=== PATIENT | female | born 1970 | race Caucasian/White ===

== ENCOUNTER 2016-06-14 12:12 | Emergency (ER) | payer OTHER ==
[~2016-06-14] VITALS: Ht 165.1 cm; Wt 115.0 kg
[~2016-06-14 12:12] MED LIST: 1-ME1LIQ PO; ACID75TA6 PO; ALBU1AER INH; ASPI81TA11 PO; CARV3.12 PO; CLIN1CAP6 PO; EPIP0.3I IM; HYDR-3533 PO; IBUP800T23 PO; INSU1INJ5 SQ; LISI-366 PO; VENL-39 PO; VENL150T14 PO
[2016-06-14 12:25] VITALS: BP 141/82; PULSE 96; RESP 18; TEMP 97.9; O2SAT 99
[2016-06-14] MEDS ORDERED: LISI40TA PO (12:30)
[2016-06-14] MEDS ORDERED: ONDANSETRON HCL 4 MG/2 ML VIAL IV PUSH ONE (12:30)
[2016-06-14] MEDS ORDERED: ALBUAER3 INH (12:30)
[2016-06-14] MEDS ORDERED: CARV3.12 PO (12:30)
[2016-06-14] MEDS ORDERED: SODIUM CHLORIDE 0.9% FLUSH 5 ML FLUSH IVF PRN (12:30)
[2016-06-14] MEDS ORDERED: IBUP800T23 PO ×2 (12:30→13:41)
[2016-06-14] MEDS ORDERED: MORPHINE SULFATE 4 MG/ML INJ IV PUSH ONE (12:30)
[2016-06-14] MEDS ORDERED: SPIR25TA PO (12:30)
[2016-06-14] MEDS ORDERED: RANI150T PO (12:30)
[2016-06-14] MEDS ORDERED: AMLO10TA2 PO (12:30)
[2016-06-14] MEDS ORDERED: LORazepam 2 MG/ML VIAL IV PUSH ONE (12:30)
[2016-06-14] MEDS ORDERED: VENL225T PO (12:30)
[2016-06-14] MEDS ORDERED: GLIP10TA6 PO (12:30)
[2016-06-14] MEDS ORDERED: ASPI81CH3 CHEW (12:30)
[2016-06-14] MEDS ORDERED: LEVEMIR SQ (12:30)
[2016-06-14 12:40] VITALS: O2SAT 100
--- NOTE | 2016-06-14 12:42 | PD ---
HPI . Chest pain Chief Complaint: Chest Pain Time Seen by Provider: 12:30 Travel History International Travel<30 days: No Contact w/Intl Traveler<30days: No Traveled to known affect area: No History of Present Illness HPI Patient presents with a four-hour history of chest pain. She states that it started after she became upset about something. She describes a sharp right- sided chest pain with associated right hand numbness. Patient reports many previous similar episodes generally occurring following an event which upsets her. Her pain is associated with shortness of breath and nausea and diaphoresis. The patient also states that she tripped and fell today and injured her right ankle. 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 She states that she now has severe right ankle pain. PFSH Past Medical History Hx Anticoagulant Therapy: Yes Arthritis: Yes Asthma: Yes Blood Disorders: No Anxiety: Yes Depression: Yes Heart Rhythm Problems: No Cancer: No Cardiac Catheterization: Yes Cardiovascular Problems: Yes (CHF) High Cholesterol: Yes Chemotherapy: No Chest Pain: Yes Congestive Heart Failure: Yes (from chronic htn per pt) COPD: Yes (chronic bronchitis) Cerebrovascular Accident: Yes Diabetes: Yes (TYPE 1 ) Patient Takes Glucophage: No Diminished Hearing: No Endocrine: Yes Gastrointestinal Disorders: Yes GERD: Yes Genitourinary: No Headaches: Yes Hypertension: Yes Immune Disorder: No Implanted Vascular Access Dvce: Yes Musculoskeletal: Yes Neurologic: Yes (NEUROPATHY) Psychiatric: Yes Reproductive: Yes (UTERINE ABLATION) Respiratory: Yes Immunizations Current: Yes Migraines: Yes Myocardial Infarction: Yes Radiation Therapy: No Sleep Apnea: Yes (CPAP) Thyroid Disease: No ?: Not : 2 Para: 2 Tubal Ligation: Yes Past Surgical History Abdominal Surgery: Yes (choley) Section: Yes (X 2) Cholecystectomy: Yes Gynecologic Surgery: Yes (UTERINE ABLATION, 2004/ tubal ligation ) Hysterectomy: Yes Oral Surgery: Yes (tonsils and adenoids) Tonsillectomy: Yes Other Surgery: Yes (c/sect.x2,cholest.,t/a, uterine ablation) Social History Alcohol Use: No Tobacco Use: No Substance Use: No Allergies-Medications (Allergen,Severity, Reaction): Coded Allergies: Augmentin (Unverified Allergy, Severe, RASH, SOB, 06/14/16) Bee Sting (Verified Allergy, Severe, Anaphylaxis, 06/14/16) Penicillin (Unverified Allergy, Severe, HIVES, SOB, 06/14/16) Sulfa (Unverified Allergy, Severe, SHORTNESS OF BREATH, 06/14/16) Benadryl (Verified Allergy, Intermediate, hives, 06/14/16) Latex (Unverified Allergy, Unknown, HIVES, 06/14/16) Reported Meds & Prescriptions Reported Meds & Active Scripts Active Reported Glipizide 10 Mg Tab 10 Mg PO DAILY Take 30 minutes before a meal Aspirin 81 Low Dose (Aspirin) 81 Mg Chew 81 Mg CHEW DAILY Amlodipine (Amlodipine Besylate) 10 Mg Tab 10 Mg PO DAILY Carvedilol 3.125 Mg Tab 3.125 Mg PO HS Levemir Inj (Insulin Detemir) 1,000 unit/ 10 ML Vial 40 Units SQ BID Do not mix with any other Insulin. Spironolactone 25 Mg Tab 25 Mg PO DAILY Proair Hfa 8.5 GM Inh (Albuterol Sulfate) 90 Mcg/Act Aer 2 Puff INH Q4-6H PRN 108 mcg/actuation Ibuprofen 800 Mg Tab 800 Mg PO Q8H PRN Venlafaxine ER 24 HR (Venlafaxine HCl) 225 Mg Tab 225 Mg PO DAILY Ranitidine (Ranitidine HCl) 150 Mg Tab 150 Mg PO HS Lisinopril 40 Mg Tab 40 Mg PO DAILY Review of Systems Except as stated in HPI: all other systems reviewed are Neg General / Constitutional: Positive: Other (diaphoresis), No: Fever, Chills Cardiovascular: Positive: Chest Pain or Discomfort Respiratory: Positive: Shortness of Breath Gastrointestinal: Positive: Nausea Musculoskeletal: Positive: Arthralgias Physical Exam Narrative GENERAL: Awake and alert and in no acute distress. SKIN: Warm and dry. HEAD: Atraumatic. Normocephalic. EYES: Pupils equal and round. ENT: No nasal bleeding or discharge. Mucous membranes pink and moist. NECK: Trachea midline. Neck is supple. CARDIOVASCULAR: Regular rate and rhythm. Heart sounds are normal. RESPIRATORY: No accessory muscle use. Lungs are clear with full air movement throughout. GASTROINTESTINAL: Abdomen soft, non-tender, nondistended. MUSCULOSKELETAL: No edema. Diffuse right ankle tenderness. No swelling. Tenderness. No deformity. NEUROLOGICAL: Awake and alert. No obvious cranial nerve deficits. Motor grossly within normal limits. Normal speech. PSYCHIATRIC: Appropriate mood and affect; insight and judgment normal. Data Data Last Documented VS Vital Signs Date Time Temp Pulse Resp B/P Pulse Ox O2 Delivery O2 Flow Rate FiO2 06/14/16 12:40 92 06/14/16 12:40 100 Room Air 06/14/16 12:25 97.9 18 141/82 Orders Basic Metabolic Panel (Bmp) (06/14/16 12:30) Ckmb (Isoenzyme) Profile (06/14/16 12:30) Complete Blood Count With Diff (06/14/16 12:30) Magnesium (Mg) (06/14/16 12:30) Troponin I (06/14/16 12:30) Chest, Single Ap (06/14/16 12:30) Ecg Monitoring (06/14/16 12:30) Iv Access Insert/Monitor (06/14/16 12:30) Oximetry (06/14/16 12:30) Morphine Inj (Morphine Inj) (06/14/16 12:30) Sodium Chloride 0.9% Flush (Ns Flush) (06/14/16 12:30) Ondansetron Inj (Zofran Inj) (06/14/16 12:30) Lorazepam Inj (Ativan Inj) (06/14/16 12:30) Ankle, Complete ([id number]) (06/14/16 ) Labs Laboratory Tests Test 06/14/16 12:30 White Blood Count 11.1 TH/MM3 Red Blood Count 5.11 MIL/MM3 Hemoglobin 14.0 GM/DL Hematocrit 43.0 % Mean Corpuscular Volume 84.2 FL Mean Corpuscular Hemoglobin 27.5 PG Mean Corpuscular Hemoglobin 32.6 % Concent Red Cell Distribution Width 13.3 % Platelet Count 352 TH/MM3 Mean Platelet Volume 10.1 FL Neutrophils (%) (Auto) 42.6 % Lymphocytes (%) (Auto) 52.2 % Monocytes (%) (Auto) 3.9 % Eosinophils (%) (Auto) 0.6 % Basophils (%) (Auto) 0.7 % Neutrophils # (Auto) 4.7 TH/MM3 Lymphocytes # (Auto) 5.8 TH/MM3 Monocytes # (Auto) 0.4 TH/MM3 Eosinophils # (Auto) 0.1 TH/MM3 Basophils # (Auto) 0.1 TH/MM3 CBC Comment AUTO DIFF Differential Total Cells 100 Counted Neutrophils % (Manual) 57 % Band Neutrophils % 2 % Lymphocytes % 40 % Monocytes % 1 % Neutrophils # (Manual) 6.5 TH/MM3 Differential Comment FINAL DIFF MANUAL Platelet Estimate NORMAL Platelet Morphology Comment NORMAL Red Cell Morphology Comment NORMAL Sodium Level 138 MEQ/L Potassium Level 4.0 MEQ/L Chloride Level 101 MEQ/L Carbon Dioxide Level 29.5 MEQ/L Anion Gap 8 MEQ/L Blood Urea Nitrogen 16 MG/DL Creatinine 0.78 MG/DL Estimat Glomerular Filtration 80 ML/MIN Rate Random Glucose 102 MG/DL Calcium Level 8.9 MG/DL Magnesium Level 2.0 MG/DL Total Creatine Kinase 93 U/L Troponin I LESS THAN 0.02 NG/ML Exceptions Acute Myocardial Infarction ASA Not Given on Arrival: Already taken by patient MDM Medical Decision Making Medical Screen Exam Complete: Yes Emergency Medical Condition: Yes Medical Record Reviewed: Yes (the patient had a negative Lexiscan stress test on . That scan showed an ejection fraction of 66%.) Interpretation(s) EKG shows a sinus rhythm with a ventricular rate of 94. She has left ventricular hypertrophy. There is no ST segment elevation or depression. Her EKG is unchanged from previous. Differential Diagnosis Differential diagnosis of chest pain includes but is not limited to musculoskeletal pain, pulmonary embolism, acute coronary syndrome, pneumonia, pleurisy Narrative Course Patient presents for evaluation of sharp right-sided chest pain. She is also complaining with right ankle pain status post a mechanical fall this morning. CBC & BMP Diagram 06/14/16 12:30 Total CK is 93 and troponin is less than 0.02. With the description of her pain being right sided and sharp, with her pain having been present for 4 hours or more prior to presentation and with a negative Lexiscan stress test done less than a year ago, her likelihood of having cardiac chest pain is very small. Last Impressions Chest X-Ray 06/14/16 1230 Signed Impressions: Service Date/Time: Tuesday, June 14, 2016 12:50 - CONCLUSION: No acute disease. Wayne Portillo MD FACR Her ankle x-ray shows some degenerative changes but no fracture. The chest and ankle x-rays were independently viewed by me. Diagnosis Primary Impression: Chest pain Qualified Code: R07.9 - Chest pain, unspecified type Additional Impression: Right ankle pain Qualified Code: M25.571 - Acute right ankle pain Patient Instructions: Arthralgia (ED), Chest Pain (DC), General Instructions Med/Other Pt SpecificInfo: Prescription(s) given Scripts Tramadol (Ultram)50 Mg Tab50 Mg PO Q4H PRN (PAIN) #10 TAB Ref 0 Prov:Radha Perez MD 06/14/16 Ibuprofen 800 Mg [id number] Mg PO Q8H PRN (pain) #30 TAB Ref 0 Prov:Radha Perez MD 06/14/16 Disposition: 01 DISCHARGE HOME Condition: Stable Radha Perez MD Jun 14, 2016 12:42
[2016-06-14 12:47] LABS: AUTOMATED NEUTROPHIL # 4.7 TH/MM3 (1.8-7.7); BASOPHIL # 0.1 TH/MM3 (0-0.2); BASOPHIL % 0.7 % (0.0-2.0); EOSINOPHIL # 0.1 TH/MM3 (0-0.4); EOSINOPHIL % 0.6 % (0.0-4.0); HEMO FLAGS AUTO DIFF; LYMPH % 52.2 % (9.0-44.0); LYMPHOCYTE # 5.8 TH/MM3 (1.0-4.8); MEAN CELL VOLUME 84.2 FL (80.0-100.0); MEAN CORPUSCULAR HEMOGLOBIN 27.5 PG (27.0-34.0); MEAN CORPUSCULAR HGB CONC 32.6 % (32.0-36.0); MONO % 3.9 % (0.0-8.0); NEUT % 42.6 % (16.0-70.0); PLATELET COUNT 352 TH/MM3 (150-450); RED BLOOD COUNT 5.11 MIL/MM3 (4.00-5.30); RED CELL DISTRIBUTION WIDTH 13.3 % (11.6-17.2); WHITE BLOOD COUNT 11.1 TH/MM3 (4.0-11.0)
[2016-06-14 12:55] LABS: CHLORIDE 101 MEQ/L (98-107); SODIUM (NA) 138 MEQ/L (136-145)
[2016-06-14 12:58] LABS: ANION GAP 8 MEQ/L (5-15); BICARBONATE 29.5 MEQ/L (21.0-32.0); BLOOD UREA NITROGEN 16 MG/DL (7-18)
[2016-06-14 13:01] LABS: GLOMERULAR FILTRATION RATE 80 ML/MIN (>89)
--- NOTE | 2016-06-14 13:17 | RADHPO ---
EXAM DATE/TIME: 06/14/2016 12:50 [facility] COMPARISON: CHEST SINGLE AP, August 22, 2015, 11:22. INDICATIONS : Chest pain, short of breath. MEDICAL HISTORY : Hypertension. Diabetes mellitus type II. Congestive heart failure. asthma, bronchitis SURGICAL HISTORY : None. ENCOUNTER: Initial ACUITY: 1 day PAIN SCORE: 8/10 LOCATION: Bilateral chest FINDINGS: A single view of the chest demonstrates the lungs to be symmetrically aerated without evidence of mas s, infiltrate or effusion. The cardiomediastinal contours are unremarkable. Osseous structures are intact. CONCLUSION: No acute disease. Wayne Portillo MD FACR on June 14, 2016 at 13:15 Board Certified Radiologist. This report was verified electronically.
[2016-06-14 13:20] LABS: BANDS 2 % (0-6); NEUTROPHIL # MANUAL DIFF 6.5 TH/MM3 (1.8-7.7); POLYS (SEG NEUTROPHILS) 57 % (16-70); WBC DIFF SAMPLE 100
[2016-06-14 13:21] LABS: PLATELET ESTIMATE SMEAR NORMAL (NORMAL); PLATELET MORPHOLOGY NORMAL (NORMAL); SCAN/DIFF FINAL DIFF MANUAL
--- NOTE | 2016-06-14 13:21 | RADHPO ---
EXAM DATE/TIME: 06/14/2016 12:49 [facility] COMPARISON: No previous studies available for comparison. INDICATIONS : Fall, right medial ankle pain. MEDICAL HISTORY : None. SURGICAL HISTORY : None. ENCOUNTER: Initial ACUITY: 1 day PAIN SCORE: 10/10 LOCATION: Right medial ankle FINDINGS: There are degenerative changes about the medial malleolus with some soft tissue swelling evident. La teral malleolus shows some soft tissue swelling as well without fracture. CONCLUSION: Degenerative changes without fracture. Wayne Portillo MD FACR on June 14, 2016 at 13:13 Board Certified Radiologist. This report was verified electronically.
[2016-06-14 13:22] LABS: CREATINE KINASE 93 U/L (26-192)
[2016-06-14] MEDS ORDERED: ULTR50TA5 PO (13:41)
[2016-06-14 13:50] VITALS: BP 143/78; PULSE 98; RESP 16; O2SAT 95
--- NOTE | 2016-06-15 19:20 | EKG ---
Date Performed: 06/14/2016 Time Performed: 12:19:56 PTAGE: 45 years EKG: Sinus rhythm . Left ventricular hypertrophy by voltage only Since previous tracing, no significant change noted Ab normal ECG PREVIOUS TRACING : 08/22/2015 16.57 DOCTOR: Donte Bush Interpretating Date/Time 06/15/2016 19:19:24
== END 2016-06-14 14:30 | disposition home or self-care (01) ==
LOC: PHED 12:12
DX: R07.9 Chest pain, unspecified (principal); M25.571 Pain in right ankle and joints of right foot; R06.02 Shortness of breath; R11.0 Nausea; R61 Generalized hyperhidrosis; R94.31 Abnormal electrocardiogram [ECG] [EKG]; E78.00 Pure hypercholesterolemia, unspecified; E10.9 Type 1 diabetes mellitus without complications; I10 Essential (primary) hypertension; G47.30 Sleep apnea, unspecified; W01.0XXA Fall on same level from slipping, tripping and stumbling without subsequent striking against object, initial encounter; Z79.4 Long term (current) use of insulin; Z79.01 Long term (current) use of anticoagulants; Z87.39 Personal history of other diseases of the musculoskeletal system and connective tissue; Z87.09 Personal history of other diseases of the respiratory system; Z86.59 Personal history of other mental and behavioral disorders; Z86.79 Personal history of other diseases of the circulatory system; Z86.73 Personal history of transient ischemic attack (TIA), and cerebral infarction without residual deficits; Z87.19 Personal history of other diseases of the digestive system; Z86.69 Personal history of other diseases of the nervous system and sense organs
CPT/HCPCS: 71010; 73610; 80048; 82550; 83735; 84484; 85007; 85027; 93005; 96374; 99285; J2060

== ENCOUNTER 2016-09-10 12:29 | Inpatient (IN) | payer OTHER ==
[2016-09-10] VITALS (8 sets, daily range): BP systolic 128–164; BP diastolic 70–91; PULSE 87–101; RESP 18–26; TEMP 97–98.9; O2SAT 95–99
[~2016-09-10] VITALS: Ht 165.1 cm; Wt 118.5 kg
[~2016-09-10 12:29] MED LIST changes: -1-ME1LIQ PO; -ACID75TA6 PO; -ALBU1AER INH; +ALBUAER3 INH; +AMLO10TA2 PO; +ASPI81CH3 CHEW; -ASPI81TA11 PO; -CLIN1CAP6 PO; -EPIP0.3I IM; +GLIP10TA6 PO; -HYDR-3533 PO; -INSU1INJ5 SQ; +LEVEMIR SQ; -LISI-366 PO; +LISI40TA PO; +RANI150T PO; +SPIR25TA PO; +ULTR50TA5 PO; -VENL-39 PO; -VENL150T14 PO; +VENL225T PO
[2016-09-10] MEDS ORDERED: NITROGLYCERIN 0.4 MG SL 25 TABS/BTL SL ONE (12:45)
[2016-09-10] MEDS ORDERED: SODIUM CHLORIDE 0.9% FLUSH 10 ML FLUSH IVF PRN (12:45)
--- NOTE | 2016-09-10 12:49 | PD ---
HPI Chief Complaint: Chest Pain Time Seen by Provider: 12:37 Travel History International Travel<30 days: No Contact w/Intl Traveler<30days: No Traveled to known affect area: No History of Present Illness HPI 46-year-old female presents with epigastric and central chest pain that is been present for the past couple of days with shortness of breath. She states she's also been nauseous. She states this feels similar to her prior heart attack she had in 2007 when her daughter . She states that she had a cardiac catheterization about 10 years ago that was normal. Her last stress test was in 2007 and normal. She states her informatics pharmacist is Dr. tran in [place]. She took aspirin and nitroglycerin prior to arrival without change. She denies other concurrent complaints. EKG in route showed no acute changes. Quality is pressure. Severity is moderate. She denies specific modifying factors. She denies prior blood clots or family history of clots. PFSH Past Medical History Hx Anticoagulant Therapy: Yes Arthritis: Yes Asthma: Yes Blood Disorders: No Anxiety: Yes Depression: Yes Heart Rhythm Problems: No Cancer: No Cardiac Catheterization: Yes Cardiovascular Problems: Yes (CHF) High Cholesterol: Yes Chemotherapy: No Chest Pain: Yes Congestive Heart Failure: Yes (from chronic htn per pt) COPD: Yes (chronic bronchitis) Cerebrovascular Accident: Yes Diabetes: Yes (TYPE 1 ) Diminished Hearing: No Endocrine: Yes Gastrointestinal Disorders: Yes GERD: Yes Genitourinary: No Headaches: Yes Hypertension: Yes Immune Disorder: No Implanted Vascular Access Dvce: Yes Musculoskeletal: Yes Neurologic: Yes (NEUROPATHY) Psychiatric: Yes Reproductive: Yes (UTERINE ABLATION) Respiratory: Yes Immunizations Current: Yes Migraines: Yes Myocardial Infarction: Yes Radiation Therapy: No Sleep Apnea: Yes (CPAP) Thyroid Disease: No ?: Not : 2 Para: 2 Tubal Ligation: Yes Past Surgical History Abdominal Surgery: Yes (choley) Section: Yes (X 2) Cholecystectomy: Yes Gynecologic Surgery: Yes (UTERINE ABLATION, 2004/ tubal ligation ) Hysterectomy: Yes Oral Surgery: Yes (tonsils and adenoids) Tonsillectomy: Yes Other Surgery: Yes (c/sect.x2,cholest.,t/a, uterine ablation) Social History Alcohol Use: No Tobacco Use: No Substance Use: No Allergies-Medications (Allergen,Severity, Reaction): Coded Allergies: Augmentin (Unverified Allergy, Severe, RASH, SOB, 06/14/16) Bee Sting (Verified Allergy, Severe, Anaphylaxis, 06/14/16) Penicillin (Unverified Allergy, Severe, HIVES, SOB, 06/14/16) Sulfa (Unverified Allergy, Severe, SHORTNESS OF BREATH, 06/14/16) Benadryl (Verified Allergy, Intermediate, hives, 06/14/16) Latex (Unverified Allergy, Unknown, HIVES, 06/14/16) Reported Meds & Prescriptions Reported Meds & Active Scripts Active Ultram (Tramadol HCl) 50 Mg Tab 50 Mg PO Q4H PRN Ibuprofen 800 Mg Tab 800 Mg PO Q8H PRN Reported Glipizide 10 Mg Tab 10 Mg PO DAILY Take 30 minutes before a meal Aspirin 81 Low Dose (Aspirin) 81 Mg Chew 81 Mg CHEW DAILY Amlodipine (Amlodipine Besylate) 10 Mg Tab 10 Mg PO DAILY Carvedilol 3.125 Mg Tab 3.125 Mg PO HS Levemir Inj (Insulin Detemir) 1,000 unit/ 10 ML Vial 40 Units SQ BID Do not mix with any other Insulin. Spironolactone 25 Mg Tab 25 Mg PO DAILY Proair Hfa 8.5 GM Inh (Albuterol Sulfate) 90 Mcg/Act Aer 2 Puff INH Q4-6H PRN 108 mcg/actuation Ibuprofen 800 Mg Tab 800 Mg PO Q8H PRN Venlafaxine ER 24 HR (Venlafaxine HCl) 225 Mg Tab 225 Mg PO DAILY Ranitidine (Ranitidine HCl) 150 Mg Tab 150 Mg PO HS Lisinopril 40 Mg Tab 40 Mg PO DAILY Review of Systems Except as stated in HPI: all other systems reviewed are Neg Physical Exam Narrative GENERAL: Well-nourished, well-developed patient. SKIN: Warm and dry. HEAD: Normocephalic and atraumatic. EYES: No injection or drainage. ENT: No nasal drainage noted. NECK: Supple, trachea midline. CARDIOVASCULAR: Regular rate and rhythm RESPIRATORY: Breath sounds equal bilaterally. No accessory muscle use. GASTROINTESTINAL: Abdomen soft, non-tender, nondistended. EXTREMITIES: No edema. NEUROLOGICAL: Awake and alert. Motor and sensory grossly within normal limits. Normal speech. Data Data Last Documented VS Vital Signs Date Time Temp Pulse Resp B/P Pulse Ox O2 Delivery O2 Flow Rate FiO2 09/10/16 13:22 100 24 159/86 09/10/16 12:54 99 Nasal Cannula 2 09/10/16 12:31 98.3 Orders Electrocardiogram (09/10/16 12:37) Ckmb (Isoenzyme) Profile (09/10/16 12:37) Complete Blood Count With Diff (09/10/16 12:37) Comprehensive Metabolic Panel (09/10/16 12:37) D-Dimer (09/10/16 12:37) Magnesium (Mg) (09/10/16 12:37) Prothrombin Time / Inr (Pt) (09/10/16 12:37) Act Partial Throm Time (Ptt) (09/10/16 12:37) Troponin I (09/10/16 12:37) Lipase (09/10/16 12:37) Chest, Single Ap (09/10/16 12:37) Ecg Monitoring (09/10/16 12:37) Bilateral Bp Monitoring (09/10/16 12:37) Iv Access Insert/Monitor (09/10/16 12:37) Oximetry (09/10/16 12:37) Sodium Chloride 0.9% Flush (Ns Flush) (09/10/16 12:45) Nitroglycerin Sl (Nitrostat Sl) (09/10/16 12:45) CKMB (09/10/16 12:45) CKMB% (09/10/16 12:45) Admit Order (Ed Use Only) (09/10/16 13:52) Labs Laboratory Tests Test 09/10/16 12:45 White Blood Count 10.4 TH/MM3 Red Blood Count 4.58 MIL/MM3 Hemoglobin 12.3 GM/DL Hematocrit 39.0 % Mean Corpuscular Volume 85.1 FL Mean Corpuscular Hemoglobin 26.8 PG Mean Corpuscular Hemoglobin 31.5 % Concent Red Cell Distribution Width 14.0 % Platelet Count 266 TH/MM3 Mean Platelet Volume 9.9 FL Neutrophils (%) (Auto) 45.8 % Lymphocytes (%) (Auto) 45.6 % Monocytes (%) (Auto) 6.7 % Eosinophils (%) (Auto) 1.1 % Basophils (%) (Auto) 0.8 % Neutrophils # (Auto) 4.7 TH/MM3 Lymphocytes # (Auto) 4.7 TH/MM3 Monocytes # (Auto) 0.7 TH/MM3 Eosinophils # (Auto) 0.1 TH/MM3 Basophils # (Auto) 0.1 TH/MM3 CBC Comment DIFF FINAL Differential Comment Prothrombin Time 10.4 SEC Prothromb Time International 0.9 RATIO Ratio Activated Partial 25.2 SEC Thromboplast Time D-Dimer Quantitative (PE/DVT) 0.32 MG/L FEU Sodium Level 138 MEQ/L Potassium Level 3.4 MEQ/L Chloride Level 101 MEQ/L Carbon Dioxide Level 29.5 MEQ/L Anion Gap 8 MEQ/L Blood Urea Nitrogen 9 MG/DL Creatinine 0.66 MG/DL Estimat Glomerular Filtration 97 ML/MIN Rate Random Glucose 142 MG/DL Calcium Level 8.4 MG/DL Magnesium Level 1.8 MG/DL Total Bilirubin 0.2 MG/DL Aspartate Amino Transf 27 U/L (AST/SGOT) Alanine Aminotransferase 27 U/L (ALT/SGPT) Alkaline Phosphatase 102 U/L Total Creatine Kinase 121 U/L Creatine Kinase MB 0.8 NG/ML Troponin I LESS THAN 0.02 NG/ML Total Protein 7.3 GM/DL Albumin 3.1 GM/DL Lipase 194 U/L MDM Medical Decision Making Medical Screen Exam Complete: Yes Emergency Medical Condition: Yes Medical Record Reviewed: Yes (past history confirmed) Interpretation(s) EKG shows NSR, no ST elevation or depression, and no arrhythmias. No significant T-wave inversions. CBC & BMP Diagram 09/10/16 12:45 Last 24 hours Impressions Chest X-Ray 09/10/16 1237 Signed Impressions: Service Date/Time: Saturday, September 10, 2016 12:43 - CONCLUSION: Normal examination for a patient of this age. No significant change has occurred. Yonatan Hogue MD Differential Diagnosis Cardiac, musculoskeletal, gastritis, PE Narrative Course Will check blood work, chest x-ray and reevaluate ed workup no emergent process, agrees to [facility] observation Diagnosis Primary Impression: Chest pain Qualified Code: R07.9 - Chest pain, unspecified type Fidelia Stern MD September 10, 2016 12:49
[2016-09-10 13:05] LABS: AUTOMATED NEUTROPHIL # 4.7 TH/MM3 (1.8-7.7); BASOPHIL # 0.1 TH/MM3 (0-0.2); BASOPHIL % 0.8 % (0.0-2.0); EOSINOPHIL # 0.1 TH/MM3 (0-0.4); EOSINOPHIL % 1.1 % (0.0-4.0); HEMO FLAGS DIFF FINAL; LYMPH % 45.6 % (9.0-44.0); LYMPHOCYTE # 4.7 TH/MM3 (1.0-4.8); MEAN CELL VOLUME 85.1 FL (80.0-100.0); MEAN CORPUSCULAR HEMOGLOBIN 26.8 PG (27.0-34.0); MEAN CORPUSCULAR HGB CONC 31.5 % (32.0-36.0); MONO % 6.7 % (0.0-8.0); NEUT % 45.8 % (16.0-70.0); PLATELET COUNT 266 TH/MM3 (150-450); RED BLOOD COUNT 4.58 MIL/MM3 (4.00-5.30); WHITE BLOOD COUNT 10.4 TH/MM3 (4.0-11.0)
--- NOTE | 2016-09-10 13:08 | RADRPT ---
EXAM DATE/TIME: 09/10/2016 12:43 [facility] COMPARISON: CHEST SINGLE AP, June 14, 2016, 12:50. INDICATIONS : Chest pain. MEDICAL HISTORY : Hypertension. Diabetes mellitus type II. Congestive heart failure. asthma SURGICAL HISTORY : None. ENCOUNTER: Initial ACUITY: 2 days PAIN SCORE: 9/10 LOCATION: Bilateral chest FINDINGS: A single view of the chest demonstrates the lungs to be symmetrically aerated without evidence of mas s, infiltrate or effusion. The cardiomediastinal contours are unremarkable. Osseous structures are intact. CONCLUSION: Normal examination for a patient of this age. No significant change has occurred. Yonatan Hogue MD on September 10, 2016 at 13:07 Board Certified Radiologist. This report was verified electronically.
[2016-09-10 13:24] LABS: ALKALINE PHOSPHATASE 102 U/L (45-117); CREATINE KINASE 121 U/L (26-192); TOTAL BILIRUBIN ADULT 0.2 MG/DL (0.2-1.0)
[2016-09-10 13:25] LABS: APTT (PATIENT) 25.2 SEC (24.3-30.1); INTERNATIONAL NORMALIZED RATIO 0.9 RATIO; PROTHROMBIN TIME - PATIENT 10.4 SEC (9.8-11.6)
[2016-09-10 13:31] LABS: ALT (GPT) 27 U/L (10-53); ANION GAP 8 MEQ/L (5-15); AST (GOT) 27 U/L (15-37); BICARBONATE 29.5 MEQ/L (21.0-32.0); BLOOD UREA NITROGEN 9 MG/DL (7-18); CHLORIDE 101 MEQ/L (98-107); GLOMERULAR FILTRATION RATE 97 ML/MIN (>89); MAGNESIUM 1.8 MG/DL (1.5-2.5); POTASSIUM 3.4 MEQ/L (3.5-5.1); SODIUM (NA) 138 MEQ/L (136-145)
[2016-09-10 13:37] LABS: CKMB 0.8 NG/ML (0.5-3.6)
[2016-09-10] MEDS ORDERED: ACETAMINOPHEN 325 MG TAB PO ONE (14:00)
[2016-09-10] MEDS ORDERED: GABA400C5 PO (14:31)
[2016-09-10] MEDS ORDERED: ONDANSETRON HCL 4 MG/2 ML VIAL IV PRN (17:00)
[2016-09-10] MEDS ORDERED: ACETAMINOPHEN 500 MG CPLT PO PRN (17:00)
[2016-09-10] MEDS ORDERED: NITROGLYCERIN 0.4 MG SL 25 TABS/BTL SL PRN (17:00)
[2016-09-10] MEDS ORDERED: VENL150C39 PO (17:41)
[2016-09-10] MEDS ORDERED: VENL75CA44 PO (17:42)
[2016-09-10 18:45] LABS: CREATINE KINASE 109 U/L (26-192)
[2016-09-10] MEDS ORDERED: ACETAMINOPHEN/HYDROcodone 325 MG/7.5 MG TAB PO PRN (18:45)
[2016-09-10 18:58] LABS: CKMB LESS THAN 0.5 NG/ML (0.5-3.6)
--- NOTE | 2016-09-10 19:05 | HHI.HP ---
HPI Primary Care Physician BIENVENIDO Riley Chief Complaint Chest pain History of Present Illness 46-year-old female with past medical history of type 1 diabetes, rheumatoid arthritis, and anxiety presents to the emergency room for further evaluation of intermittent chest pain. Onset Friday while at work. Location left anterior chest described as a "sharp pain and that someone was sitting on my chest." Duration approximately 25 minutes. Pain gradually subsided. Initial episode she did not have radiation of pain. No associated symptoms. Since Friday she has experienced intermittent sharp pain in her left anterior chest "multiple times." Today she developed severe pain with radiation to her epigastric area, right arm, right shoulder, and right leg. Nonexertional component. Associated symptoms today included blurred vision and she felt she could not walk. Laying down helped pain. Sitting up makes pain worse. No particular movements or deep breathing makes pain better or worse. She has never had pain this in the past. Pain has been constant since this a.m. Currently rates her pain at a level 9/10. Currently no radiation of pain. Review of Systems General: No fatigue,weakness, chills, or recent illness. Denies any fevers per se although states over the past 2 days she has felt "hot." Has been in her general state of health HEENT: No TRACY, no nasal congestion or drainage, no dysphasia CV: As stated above. No palpitations, intermittent leg pain, or dizziness RESP: No SOB, cough, wheeze, or recent URI. Reports sleep apnea although does not CPAP machine at home. History of asthma. GI: No nausea, vomiting. Endorses a recent bowel change consisting of constipation. Last bowel movement 4 days ago. No pain or distention. No past history of constipation. She is also noticed a decrease in her appetite over the past 4 days and polydipsia. : No dysuria, urgency, frequency, polyuria or hematuria EXT: No lower leg edema, no paraesthesias MS: No discomfort or change in ROM, reports bilateral pedal neuropathy NEURO: No change in memory, dizziness, difficulty with balance, LOC, motor/ sensory deficits PSYCH: No anxiety, depression SKIN: No rashes, no concerning lesions Past Family Social History Allergies: Coded Allergies: Augmentin (Unverified Allergy, Severe, RASH, SOB, 06/14/16) Bee Sting (Verified Allergy, Severe, Anaphylaxis, 06/14/16) Penicillin (Unverified Allergy, Severe, HIVES, SOB, 06/14/16) Sulfa (Unverified Allergy, Severe, SHORTNESS OF BREATH, 06/14/16) Benadryl (Verified Allergy, Intermediate, hives, 06/14/16) Latex (Unverified Allergy, Unknown, HIVES, 06/14/16) Past Medical History Diabetes, rheumatoid arthritis, asthma, anxiety, depression, hypertension, congestive heart failure, neuropathy, cardiac arrest/[place] -2007 after daughter's . Past Surgical History Tubal ligation, tonsillectomy, uterine ablation Reported Medications Active Ultram (Tramadol HCl) 50 Mg Tab 50 Mg PO Q4H PRN Ibuprofen 800 Mg Tab 800 Mg PO Q8H PRN Venlafaxine ER 24 HR (Venlafaxine HCl) 75 Mg Cap 75 Mg PO DAILY Venlafaxine ER 24 HR (Venlafaxine HCl) 150 Mg Cap 150 Mg PO DAILY Gabapentin 400 Mg Cap 400 Cap PO HS Glipizide 10 Mg Tab 10 Mg PO DAILY Take 30 minutes before a meal Aspirin 81 Low Dose (Aspirin) 81 Mg Chew 81 Mg CHEW DAILY Amlodipine (Amlodipine Besylate) 10 Mg Tab 10 Mg PO DAILY Carvedilol 3.125 Mg Tab 3.125 Mg PO HS Levemir Inj (Insulin Detemir) 1,000 unit/ 10 ML Vial 40 Units SQ BID Do not mix with any other Insulin. Spironolactone 25 Mg Tab 25 Mg PO DAILY Proair Hfa 8.5 GM Inh (Albuterol Sulfate) 90 Mcg/Act Aer 2 Puff INH Q4-6H PRN 108 mcg/actuation Ranitidine (Ranitidine HCl) 150 Mg Tab 150 Mg PO HS Lisinopril 40 Mg Tab 40 Mg PO DAILY Novolog SSI Active Ordered Medications Current Medications Medications (Trade) Dose Ordered Sig/Todd Route Start Time Stop Time Status Last Admin (NS Flush) 2 ml UNSCH PRN IVF 09/10/16 12:45 (NS Flush) 2 ml BID IV FLUSH 09/10/16 21:00 (Tylenol) 500 mg Q4H PRN PO 09/10/16 17:00 (Zofran Inj) 4 mg Q6H PRN IV 09/10/16 17:00 (Nitrostat Sl) 0.4 mg Q5M PRN SL 09/10/16 17:00 ([place] 7.5-325 Mg) 1 tab Q6H PRN PO 09/10/16 18:45 Family History Father of [place] at age 48, mother 2 cardiac stents placed at age 54. Social History Known diabetes and hypertension. No known hyperlipidemia. Lifelong nonsmoker. Denies any alcohol or illegal drug use. She is active. Works as a case work aide. Past cardiac testing No recent stress testing that she can remember. Per [facility] records she completed a nuclear ETT 08/22/15 which was unremarkable for ischemia. 2007 after the of her daughter states "my heart quit beating and I needed to be shocked." Cardiac catheterization was completed at that time. She was told no interventions or cardiac aunts were required. She does not follow with a channel supervisor. Physical Exam Vital Signs Vital Signs Date Time Temp Pulse Resp B/P Pulse Ox O2 Delivery O2 Flow Rate FiO2 09/10/16 16:57 96 Nasal Cannula 2.00 09/10/16 15:00 92 09/10/16 14:53 98.9 100 20 128/70 96 09/10/16 13:22 100 24 159/86 09/10/16 12:54 99 Nasal Cannula 2 09/10/16 12:54 164/85 09/10/16 12:54 101 26 98 Nasal Cannula 2 09/10/16 12:31 98.3 101 26 161/79 97 Physical Exam GENERAL: Alert WN, WD, NAD, pleasant, , obese female HEAD: NC, AT EYES: Sclera clear, pupils equal and round ENT: Mucous membranes pink and moist NECK: Supple, no masses, trachea midline CV: RRR, without murmur, rub, gallop, no JVD, S1-S2 no S3-S4. No carotid bruits. RESP: Clear lungs throughout bilateral, no crackles, wheeze, rhonchi, symmetrical chest rise, nonlabored, able to speak in full sentences ABD: Soft, NT, ND, no masses, obese, positive bowel tones EXT: Pulses +24, no dependent edema MS: Normal tone 4 extremities, nontender, no obvious deformities, full range of motion NEURO: CN II through CN XII grossly intact, motor strength 5/5, gait WNL PSYCH: A+O 3, pleasant affect, appropriate speech, appropriate mood and affect , insight and judgment SKIN: Normal turgor, normal texture, no lesions, no rashes, brisk cap refill, even hair distribution Laboratory Laboratory Tests Test 09/10/16 09/10/16 12:45 18:00 White Blood Count 10.4 Red Blood Count 4.58 Hemoglobin 12.3 Hematocrit 39.0 Mean Corpuscular Volume 85.1 Mean Corpuscular Hemoglobin 26.8 Mean Corpuscular Hemoglobin 31.5 Concent Red Cell Distribution Width 14.0 Platelet Count 266 Mean Platelet Volume 9.9 Neutrophils (%) (Auto) 45.8 Lymphocytes (%) (Auto) 45.6 Monocytes (%) (Auto) 6.7 Eosinophils (%) (Auto) 1.1 Basophils (%) (Auto) 0.8 Neutrophils # (Auto) 4.7 Lymphocytes # (Auto) 4.7 Monocytes # (Auto) 0.7 Eosinophils # (Auto) 0.1 Basophils # (Auto) 0.1 CBC Comment DIFF FINAL Differential Comment Prothrombin Time 10.4 Prothromb Time International 0.9 Ratio Activated Partial 25.2 Thromboplast Time D-Dimer Quantitative (PE/DVT) 0.32 Sodium Level 138 Potassium Level 3.4 Chloride Level 101 Carbon Dioxide Level 29.5 Anion Gap 8 Blood Urea Nitrogen 9 Creatinine 0.66 Estimat Glomerular Filtration 97 Rate Random Glucose 142 Calcium Level 8.4 Magnesium Level 1.8 Total Bilirubin 0.2 Aspartate Amino Transf 27 (AST/SGOT) Alanine Aminotransferase 27 (ALT/SGPT) Alkaline Phosphatase 102 Total Creatine Kinase 121 109 Creatine Kinase MB 0.8 Troponin I LESS THAN 0.02 LESS THAN 0.02 Total Protein 7.3 Albumin 3.1 Lipase 194 Result Diagram: 09/10/16 1245 09/10/16 1245 Imaging Last Impressions Chest X-Ray 09/10/16 1237 Signed Impressions: Service Date/Time: Saturday, September 10, 2016 12:43 - CONCLUSION: Normal examination for a patient of this age. No significant change has occurred. Yonatan Hogue MD Course EKG First EKG normal sinus rhythm with no ST or T-segment changes Assessment and Plan Assessment and Plan Chest painadmitted to chest pain center. Will rule out with 3 sets of EKGs, cardiac enzymes, and monitored overnight. Will be seen and evaluated by Dr. Christiano Finney channel supervisor in a.m. Most likely will complete another stress test in a.m. This is been discussed with patient she is agreeable to plan of care. Diabetescontinue Levemir, glipizide, and will order SSI coverage Hypertensioncontinue amlodipine, carvedilol, spironolactone, and lisinopril GERDProtonix 40 mg daily Musculoskeletal painNorco one tablet every 6 hours when necessary for pain Neuropathycontinue gabapentin ConstipationMiraLAX 17 g 1 dose Anette Ascencio September 10, 2016 19:05
[2016-09-10] MEDS ORDERED: DEXTROSE 50% IN WATER 50 ML VIAL(D50) IV PRN (19:15)
[2016-09-10] MEDS ORDERED: RESP: ALBUTEROL 2.5 MG/3 ML NEB (PRN) NEB (19:15)
[2016-09-10] MEDS ORDERED: GLUCAGON 1 MG/ML VIAL OTHER PRN (19:15)
[2016-09-10] MEDS ORDERED: POLYETHYLENE GLYCOL 17 GM PKG PO ONE (19:45)
[2016-09-10] MEDS ORDERED: LISINOPRIL 20 MG TAB PO SCH (20:00)
[2016-09-10 20:49] LABS: CREATINE KINASE 97 U/L (26-192)
[2016-09-10] MEDS: INSULIN DETEMIR 100 UNITS/ML VIAL SQ SCH (20:49)
[2016-09-10] MEDS: INSULIN ASPART SUPPLEMENTAL SCALE SQ SCH (20:50)
[2016-09-10] MEDS: PANTOPRAZOLE SOD 40 MG DELAYED RELEASE TAB PO SCH (21:38)
[2016-09-10] MEDS: CARVEDILOL 3.125 MG TAB PO SCH (21:38)
[2016-09-10] MEDS: SODIUM CHLORIDE 0.9% FLUSH 10 ML FLUSH IV FLUSH SCH (21:38)
[2016-09-10] MEDS: GABAPENTIN 300 MG CAP PO SCH (21:38)
[2016-09-11] VITALS (19 sets, daily range): BP systolic 131–179; BP diastolic 80–101; PULSE 84–108; RESP 11–24; TEMP 97.8–98.7; O2SAT 95–100
--- NOTE | 2016-09-11 03:27 | PD.CONS ---
HPI Service Critical Care Medicine Consult Requested By Reason for Consult Allergic reaction with hives Primary Care Physician BIENVENIDO Riley History of Present Illness 46-year-old female presents with epigastric and central chest pain that is been present for the past couple of days with shortness of breath she has also been nauseous. Per patient this has felt similar to her prior heart attack she had in 2007 when her daughter . She states that she had a cardiac catheterization about 10 years ago that was normal. She has received some Arg[place] in the emergency department for pain control and when they were putting the EKG leads on the patient she developed hives and tightness in the chest with respiratory distress. Leads were removed and her body was washed with sterile water. When I examine the patient she had no signs of hives or any other allergic reaction. Review of Systems Constitutional: DENIES: Diaphoretic episodes, Fatigue, Fever, Weight gain, Weight loss, Chills, Dizziness, Change in appetite, Night Sweats Endocrine: DENIES: Abnorml menstrual pattern, Heat/cold intolerance, Polydipsia , Polyuria, Polyphagia Eyes: DENIES: Blurred vision, Diplopia, Eye inflammation, Eye pain, Vision loss , Photosensitivity, Double Vision Ears, nose, mouth, throat: DENIES: Tinnitus, Hearing loss, Vertigo, Nasal discharge, Oral lesions, Throat pain, Hoarseness, Ear Pain, Running Nose, Epistaxis, Sinus Pain, Toothache, Odynophagia Respiratory: DENIES: Apneas, Cough, Snoring, Wheezing, Hemoptysis, Sputum production, Shortness of breath Cardiovascular: COMPLAINS OF: Chest pain, DENIES: Palpitations, Syncope, Dyspnea on Exertion, PND, Lower Extremity Edema, Orthopnea, Claudication Gastrointestinal: COMPLAINS OF: Nausea, DENIES: Abdominal pain, Black stools, Bloody stools, Constipation, Diarrhea, Vomiting, Difficulty Swallowing, Anorexia Genitourinary: DENIES: Abnormal vaginal bleeding, Dysmenorrhea, Dyspareunia, Sexual dysfunction, Urinary frequency, Urinary incontinence, Urgency, Hematuria , Dysuria, Nocturia, Vaginal discharge Musculoskeletal: DENIES: Joint pain, Muscle aches, Stiffness, Joint Swelling, Back pain, Neck pain Integumentary: DENIES: Abnormal pigmentation, Pruritus, Rash, Nail changes, Breast masses, Breast skin changes, Nipple discharge Hematologic/lymphatic: DENIES: Bruising, Lymphadenopathy Immunologic/allergic: DENIES: Eczema, Urticaria Neurologic: DENIES: Abnormal gait, Headache, Localized weakness, Paresthesias, Seizures, Speech Problems, Tremor, Poor Balance Psychiatric: DENIES: Anxiety, Confusion, Mood changes, Depression, Hallucinations, Agitation, Suicidal Ideation, Homicidal Ideation, Delusions Past Family Social History Allergies: Coded Allergies: Augmentin (Unverified Allergy, Severe, RASH, SOB, 06/14/16) Bee Sting (Verified Allergy, Severe, Anaphylaxis, 06/14/16) Penicillin (Unverified Allergy, Severe, HIVES, SOB, 06/14/16) Sulfa (Unverified Allergy, Severe, SHORTNESS OF BREATH, 06/14/16) Benadryl (Verified Allergy, Intermediate, hives, 06/14/16) Latex (Unverified Allergy, Unknown, HIVES, 06/14/16) Past Medical History Hypertension Hyperlipidemia Gastroesophageal reflux Diabetes History myocardial infarction History CVA Anxiety History congestive heart failure Past Surgical History Cardiac catheterization Tubal ligation Uterine ablation 2 Cholecystectomy Tonsillectomy Reported Medications Reported Meds & Active Scripts Active Ultram (Tramadol HCl) 50 Mg Tab 50 Mg PO Q4H PRN Reported Venlafaxine ER 24 HR (Venlafaxine HCl) 75 Mg Cap 75 Mg PO DAILY Venlafaxine ER 24 HR (Venlafaxine HCl) 150 Mg Cap 150 Mg PO DAILY Gabapentin 400 Mg Cap 400 Cap PO HS Glipizide 10 Mg Tab 10 Mg PO DAILY Take 30 minutes before a meal Aspirin 81 Low Dose (Aspirin) 81 Mg Chew 81 Mg CHEW DAILY Amlodipine (Amlodipine Besylate) 10 Mg Tab 10 Mg PO DAILY Carvedilol 3.125 Mg Tab 3.125 Mg PO HS Levemir Inj (Insulin Detemir) 1,000 unit/ 10 ML Vial 40 Units SQ BID Do not mix with any other Insulin. Spironolactone 25 Mg Tab 25 Mg PO DAILY Proair Hfa 8.5 GM Inh (Albuterol Sulfate) 90 Mcg/Act Aer 2 Puff INH Q4-6H PRN 108 mcg/actuation Ibuprofen 800 Mg Tab 800 Mg PO Q8H PRN Ranitidine (Ranitidine HCl) 150 Mg Tab 150 Mg PO HS Lisinopril 40 Mg Tab 40 Mg PO DAILY Active Ordered Medications Current Medications Medications (Trade) Dose Ordered Sig/Todd Route PRN Reason Start Time Stop Time Status Last Admin Dose Admin Sodium Chloride (NS Flush) 2 ml UNSCH PRN IVF FLUSH AFTER USING IV ACCESS 09/10/16 12:45 Sodium Chloride (NS Flush) 2 ml BID IV FLUSH 09/10/16 21:00 09/10/16 21:38 Acetaminophen (Tylenol) 500 mg Q4H PRN PO HEADACHE 09/10/16 17:00 Ondansetron HCl (Zofran Inj) 4 mg Q6H PRN IV NAUSEA 09/10/16 17:00 Nitroglycerin (Nitrostat Sl) 0.4 mg Q5M PRN SL CHEST PAIN 09/10/16 17:00 Acetaminophen/ Hydrocodone Bitart ([place] 7.5-325 Mg) 1 tab Q6H PRN PO PAIN SCALE GREATER THAN 5 09/10/16 18:45 09/10/16 18:59 Dextrose (D50w (Vial) Inj) 50 ml UNSCH PRN IV HYPOGLYCEMIA-SEE COMMENTS 09/10/16 19:15 Glucagon (Glucagon Inj) 1 mg UNSCH PRN OTHER HYPOGLYCEMIA-SEE COMMENTS 09/10/16 19:15 Pantoprazole Sodium (Protonix) 40 mg DAILY PO 09/10/16 19:15 09/10/16 21:38 Amlodipine Besylate (Norvasc) 10 mg DAILY PO 09/11/16 09:00 Carvedilol (Coreg) 3.125 mg HS PO 09/10/16 21:00 09/10/16 21:38 Gabapentin (Neurontin) 300 mg HS PO 09/10/16 21:00 09/10/16 21:38 Glipizide (Glucotrol) 10 mg DAILY PO 09/11/16 09:00 Insulin Detemir (Levemir Inj) 40 units BID SQ 09/10/16 21:00 Spironolactone (Aldactone) 25 mg DAILY PO 09/11/16 09:00 Venlafaxine HCl (Effexor Xr) 225 mg DAILY PO 09/11/16 09:00 Lisinopril (Prinivil) 40 mg DAILY PO 09/11/16 09:00 Family History Father of heart or trachea deviation 48 Social History Never smoked no alcohol or illicit drug abuse Physical Exam Vital Signs Vital Signs Date Time Temp Pulse Resp B/P Pulse Ox O2 Delivery O2 Flow Rate FiO2 09/10/16 23:55 97.0 87 18 141/86 98 09/10/16 21:12 21 09/10/16 19:59 20 09/10/16 19:47 98.0 91 18 139/91 95 09/10/16 16:57 96 Nasal Cannula 2.00 09/10/16 15:00 92 09/10/16 14:53 98.9 100 20 128/70 96 09/10/16 13:22 100 24 159/86 09/10/16 12:54 99 Nasal Cannula 2 09/10/16 12:54 164/85 09/10/16 12:54 101 26 98 Nasal Cannula 2 09/10/16 12:31 98.3 101 26 161/79 97 Physical Exam GENERAL: Well-nourished, well-developed obese lady in no acute distress SKIN: Warm and dry. HEAD: Normocephalic. EYES: No scleral icterus. No injection or drainage. NECK: Supple, trachea midline. No JVD or lymphadenopathy. CARDIOVASCULAR: Regular rate and rhythm without murmurs, gallops, or rubs. RESPIRATORY: Breath sounds equal bilaterally. No accessory muscle use. GASTROINTESTINAL: Abdomen soft, non-tender, nondistended. MUSCULOSKELETAL: No cyanosis, or edema. BACK: Nontender without obvious deformity. No CVA tenderness. EXTREMITIES: No clubbing cyanosis or edema Laboratory Laboratory Tests Test 09/10/16 09/10/16 09/10/16 12:45 18:00 20:04 White Blood Count 10.4 Red Blood Count 4.58 Hemoglobin 12.3 Hematocrit 39.0 Mean Corpuscular Volume 85.1 Mean Corpuscular Hemoglobin 26.8 Mean Corpuscular Hemoglobin 31.5 Concent Red Cell Distribution Width 14.0 Platelet Count 266 Mean Platelet Volume 9.9 Neutrophils (%) (Auto) 45.8 Lymphocytes (%) (Auto) 45.6 Monocytes (%) (Auto) 6.7 Eosinophils (%) (Auto) 1.1 Basophils (%) (Auto) 0.8 Neutrophils # (Auto) 4.7 Lymphocytes # (Auto) 4.7 Monocytes # (Auto) 0.7 Eosinophils # (Auto) 0.1 Basophils # (Auto) 0.1 CBC Comment DIFF FINAL Differential Comment Prothrombin Time 10.4 Prothromb Time International 0.9 Ratio Activated Partial 25.2 Thromboplast Time D-Dimer Quantitative (PE/DVT) 0.32 Sodium Level 138 Potassium Level 3.4 Chloride Level 101 Carbon Dioxide Level 29.5 Anion Gap 8 Blood Urea Nitrogen 9 Creatinine 0.66 Estimat Glomerular Filtration 97 Rate Random Glucose 142 Calcium Level 8.4 Magnesium Level 1.8 Total Bilirubin 0.2 Aspartate Amino Transf 27 (AST/SGOT) Alanine Aminotransferase 27 (ALT/SGPT) Alkaline Phosphatase 102 Total Creatine Kinase 121 109 97 Creatine Kinase MB 0.8 LESS THAN 0.5 Troponin I LESS THAN 0.02 LESS THAN 0.02 LESS THAN 0.02 Total Protein 7.3 Albumin 3.1 Lipase 194 Result Diagram: 09/10/16 1245 09/10/16 1245 Imaging Last 24 hours Impressions Chest X-Ray 09/10/16 1237 Signed Impressions: Service Date/Time: Saturday, September 10, 2016 12:43 - CONCLUSION: Normal examination for a patient of this age. No significant change has occurred. Yonatan Hogue MD Assessment and Plan Assessment and Plan Allergic reaction - Either to [place] or EKG leads - Patient is allergic to latex - Also allergic to Benadryl - No signs of allergic reaction at this time - Supportive care and avoid allergens Chest pain - Nitroglycerin - Workup and management per cardiology Diabetes mellitus - Glipizide - Levemir - Insulin sliding scale Hypertension - Norvasc - Coreg - Lisinopril - Spironolactone Diabetic neuropathy - Gabapentin Depression/anxiety - Venlafaxine DVT GI prophylaxis - Teds SCDs, early aggressive mobilization/Pantoprazole Critical Care: The total critical care time was 35 minutes. Time to perform other separately billable procedures was not included in the critical care time. Patient's allergic reaction has resolved. She has been comfortable on 2 L nasal cannula. She has been hemodynamically stable in no acute distress. Critical care medicine will sign off. Please reconsult us if needed. Thank you very much for allowing us to participate in care of this pleasant lady. Quintin Ackerman MD September 11, 2016 03:27
[2016-09-11] MEDS ORDERED: CHLORHEXIDINE GLUCONATE 2 % 1 PACK (2 CLOTHS)(extra cloths) TOPICAL PRN (04:45)
[2016-09-11] MEDS: INSULIN ASPART SUPPLEMENTAL SCALE SQ SCH ×4 (07:00→21:00)
[2016-09-11] MEDS: INSULIN DETEMIR 100 UNITS/ML VIAL SQ SCH ×2 (07:30→22:40)
[2016-09-11] MEDS: VENLAFAXINE HCL XR 75 MG CAP PO SCH (07:49)
[2016-09-11] MEDS: LISINOPRIL 20 MG TAB PO SCH (07:50)
[2016-09-11] MEDS: SPIRONOLACTONE 25 MG TAB PO SCH (07:50)
[2016-09-11] MEDS: SODIUM CHLORIDE 0.9% FLUSH 10 ML FLUSH IV FLUSH SCH (07:50)
[2016-09-11] MEDS: PANTOPRAZOLE SOD 40 MG DELAYED RELEASE TAB PO SCH (07:50)
[2016-09-11] MEDS: glipiZIDE 10 MG TAB PO SCH (07:54)
[2016-09-11] MEDS ORDERED: VENLAFAXINE HCL XR 75 MG CAP PO SCH (09:00)
--- NOTE | 2016-09-11 09:38 | EKG ---
Date Performed: 09/10/2016 Time Performed: 12:41:56 PTAGE: 46 years EKG: SINUS TACHYCARDIA POSSIBLE LEFT ATRIAL ENLARGEMENT POSSIBLE LEFT VENTRICULAR HYPERTROPHY NO NSPECIFIC T-WAVE ABNORMALITY ABNORMAL ECG PREVIOUS TRACING : 06/14/2016 12.19 DOCTOR: Agustin Brandon Interpretating Date/Time 09/11/2016 09:37:37
--- NOTE | 2016-09-11 12:26 | HHI.PR ---
Subjective Remarks Follow-up for chest pain and allergic reaction Patient stated that chest pain resolved. She stated that chest pain was pressure-like and similar to her AL in 2008. Chest pain resolved with nitroglycerin and aspirin. Patient was originally and chest pain center but was transfer to the [facility] due to pruritus thought to be a reaction from the EKG leads versus Narco. She had no rest symptoms at all. Pruritus resolved on its own. At the moment she is asymptomatic. Objective Vitals Vital Signs Date Time Temp Pulse Resp B/P Pulse Ox O2 Delivery O2 Flow Rate FiO2 09/11/16 10:00 100 09/11/16 08:38 99 Nasal Cannula 2.00 09/11/16 08:00 96 09/11/16 08:00 97.8 96 20 141/87 100 09/11/16 06:00 87 09/11/16 04:00 89 09/11/16 04:00 98.3 93 11 153/80 99 09/11/16 02:00 84 09/11/16 02:00 98.0 84 24 179/93 99 09/10/16 23:55 97.0 87 18 141/86 98 09/10/16 21:12 21 09/10/16 19:59 20 09/10/16 19:47 98.0 91 18 139/91 95 09/10/16 16:57 96 Nasal Cannula 2.00 09/10/16 15:00 92 09/10/16 14:53 98.9 100 20 128/70 96 09/10/16 13:22 100 24 159/86 09/10/16 12:54 99 Nasal Cannula 2 09/10/16 12:54 164/85 09/10/16 12:54 101 26 98 Nasal Cannula 2 09/10/16 12:31 98.3 101 26 161/79 97 I/O 09/10/16 09/10/16 09/10/16 09/11/16 09/11/16 09/11/16 07:00 15:00 23:00 07:00 15:00 23:00 Intake Total 600 ml 0 ml Output Total 500 ml Balance 600 ml -500 ml Intake Oral 600 ml 0 ml Output Urine Total 500 ml # Voids 4 1 # Bowel Movements 1 Result Diagram: 09/10/16 1245 09/10/16 1245 Objective Remarks GENERAL: in NAD SKIN: Warm and dry. no rashes noted. HEAD: Normocephalic. EYES: No scleral icterus. No injection or drainage. NECK: Supple, trachea midline. No JVD or lymphadenopathy. CARDIOVASCULAR: Regular rate and rhythm without murmurs, gallops, or rubs. RESPIRATORY: Breath sounds equal bilaterally. No accessory muscle use. GASTROINTESTINAL: Abdomen soft, non-tender, nondistended. MUSCULOSKELETAL: No cyanosis, or edema. BACK: Nontender without obvious deformity. No CVA tenderness. Medications and IVs Current Medications Sodium Chloride (NS Flush) 2 ml UNSCH PRN IVF FLUSH AFTER USING IV ACCESS; Start 09/10/16 at 12:45 Nitroglycerin (Nitrostat Sl) 0.4 mg ONCE ONCE SL Last administered on 12:45; Start 09/10/16 at 12:45; Stop 09/10/16 at 12:46; Status DC Acetaminophen (Tylenol) 650 mg ONCE ONCE PO Last administered on 09/10/16 14: 00; Start 09/10/16 at 14:00; Stop 09/10/16 at 14:01; Status DC Sodium Chloride (NS Flush) 2 ml BID IV FLUSH Last administered on 09/11/16 07: 50; Start 09/10/16 at 21:00 Acetaminophen (Tylenol) 500 mg Q4H PRN PO HEADACHE; Start 09/10/16 at 17:00 Ondansetron HCl (Zofran Inj) 4 mg Q6H PRN IV NAUSEA; Start 09/10/16 at 17:00 Nitroglycerin (Nitrostat Sl) 0.4 mg Q5M PRN SL CHEST PAIN; Start 09/10/16 at 17 :00 Acetaminophen/ Hydrocodone Bitart (Seneca 7.5-325 Mg) 1 tab Q6H PRN PO PAIN SCALE GREATER THAN 5 Last administered on 09/10/16 18:59; Start 09/10/16 at 18: 45 Dextrose (D50w (Vial) Inj) 50 ml UNSCH PRN IV HYPOGLYCEMIA-SEE COMMENTS; Start 09/10/16 at 19:15 Glucagon (Glucagon Inj) 1 mg UNSCH PRN OTHER HYPOGLYCEMIA-SEE COMMENTS; Start 09/10/16 at 19:15 Insulin Aspart (NovoLOG SUPPLEMENTAL SCALE) 1 ACHS SLIDING SCALE SQ ; Start at 21:00 Albuterol Sulfate (Albuterol Neb) 2.5 mg Q2HR NEB PRN NEB SOB/WHEEZING; Start 09/10/16 at 19:15 Pantoprazole Sodium (Protonix) 40 mg DAILY PO Last administered on 09/11/16 07 :50; Start 09/10/16 at 19:15 Amlodipine Besylate (Norvasc) 10 mg DAILY PO Last administered on 09/11/16 07: 49; Start 09/11/16 at 09:00 Carvedilol (Coreg) 3.125 mg HS PO Last administered on 09/10/16 21:38; Start 09/10/16 at 21:00 Gabapentin (Neurontin) 300 mg HS PO Last administered on 09/10/16 21:38; Start 09/10/16 at 21:00 Glipizide (Glucotrol) 10 mg DAILY PO ; Start 09/11/16 at 09:00 Insulin Detemir (Levemir Inj) 40 units BID SQ ; Start 09/10/16 at 21:00 Spironolactone (Aldactone) 25 mg DAILY PO Last administered on 09/11/16 07:50 ; Start 09/11/16 at 09:00 Venlafaxine HCl (Effexor Xr) 75 mg DAILY PO ; Start 09/11/16 at 09:00; Stop at 09:00; Status DC Venlafaxine HCl (Effexor Xr) 225 mg DAILY PO Last administered on 09/11/16 07: 49; Start 09/11/16 at 09:00 Lisinopril (Prinivil) 40 mg DAILY PO ; Start 09/10/16 at 20:00; Stop 09/10/16 at 20:00; Status DC Polyethylene Glycol (Miralax) 17 gm ONCE ONCE PO ; Start 09/10/16 at 19:45; Stop 09/10/16 at 19:53; Status DC Lisinopril (Prinivil) 40 mg DAILY PO Last administered on 09/11/16 07:50; Start 09/11/16 at 09:00 Miscellaneous Information Patient in critical care unit? Ass... [id number] .XX Last administered on 09/11/16 04:45; Start 09/11/16 at 04:45 Chlorhexidine Gluconate (Chlorhexidine 2% Cloth) 3 pack DAILY@04 TOPICAL ; Start 09/12/16 at 04:00; Stop 09/16/16 at 04:01 Chlorhexidine Gluconate (Chlorhexidine 2% Cloth) 3 pack UNSCH PRN TOPICAL HYGIENIC CARE; Start 09/11/16 at 04:45; Stop 09/16/16 at 04:32 A/P Assessment and Plan Allergic reaction - Either to Seneca or EKG leads - Patient is allergic to latex and Benadryl - No signs of allergic reaction at this time - Supportive care and avoid allergens Chest pain - Resolved with aspirin Nitroglycerin. patient is high risk with diabetes. hx of AL, and similar CP from prior AL. - Per chest pain center note patient was supposed to have a nuclear stress test done. Will place nuclear stress test order. Since patient is high risks and chest pain is similar to prior AL will consult pairer. -Troponins are all negative. -Continue her current regimen. Diabetes mellitus - continue Glipizide and Levemir - continue Insulin sliding scale Hypertension - continue Coreg, Norvasc, lisinopril, spironolactone. Diabetic neuropathy - continue Gabapentin Depression/anxiety - Venlafaxine DVT prophylaxis - Teds SCDs, early aggressive mobilization Discharge Planning Pending nuclear stress test and pairer's consult. Malina German MD September 11, 2016 12:26
--- NOTE | 2016-09-11 13:49 | EKG ---
Date Performed: 09/10/2016 Time Performed: 20:13:47 PTAGE: 46 years EKG: Sinus rhythm POSSIBLE LEFT VENTRICULAR HYPERTROPHY ABNORMAL ECG PREVIOUS TRACING : 09/10/2016 17.41 Since previous tracing, no significant change noted DOCTOR: Christiano Finney Interpretating Date/Time 09/11/2016 13:48:02
--- NOTE | 2016-09-11 13:49 | EKG ---
Date Performed: 09/10/2016 Time Performed: 17:41:51 PTAGE: 46 years EKG: Sinus rhythm POSSIBLE LEFT VENTRICULAR HYPERTROPHY ABNORMAL ECG PREVIOUS TRACING : 09/10/2016 15.54 Since previous tracing, no significant change noted DOCTOR: Christiano Finney Interpretating Date/Time 09/11/2016 13:48:25
--- NOTE | 2016-09-11 13:52 | EKG ---
Date Performed: 09/10/2016 Time Performed: 15:54:28 PTAGE: 46 years EKG: Sinus rhythm POSSIBLE LEFT ATRIAL ENLARGEMENT POSSIBLE LEFT VENTRICULAR HYPERTROPHY NONSPECIFIC T-WAVE ABNORMALIT Y ABNORMAL ECG PREVIOUS TRACING : 09/10/2016 12.41 Since previous tracing, no significant change noted DOCTOR: Christiano Finney Interpretating Date/Time 09/11/2016 13:51:29
[2016-09-11] MEDS ORDERED: HEPARIN-NS/PF INJ 500 ML ONE (15:47)
--- NOTE | 2016-09-11 16:24 | MB ---
cc: MAYCO LOPES M.D. DATE OF CONSULTATION: 09/11/2016 HISTORY OF PRESENT ILLNESS Dulce Maria is a very pleasant 46-year-old lady with history of coronary artery disease. She said she had a myocardial infarction after losing a close family member 10 years ago but on a heart catheterization there was no significant obstructive disease. She now presents with moderate to severe chest pain, epigastric pain associated with shortness of breath at rest, feels similar to the pain she had when she had a heart cath after her daughter . She has not had a stress test since 2007. She otherwise denies any fever, chills, cough, GI, bleeding, paroxysmal nocturnal dyspnea, orthopnea, syncope or dizziness. PAST MEDICAL HISTORY Past medical history per history of present illness. She has a history of: 1. Arthritis. 2. Asthma. 3. Anxiety. 4. CHF. 5. Hyperlipidemia. 6. Chronic bronchitis. 7. CVA. 8. Type 1 diabetes. 9. GERD. 10. Headache. 11. Hypertension. 12. Sleep apnea, uses C-PAP at home. 13. Cholecystectomy. 14. section. 15. Uterine ablation. 16. Hysterectomy. 17. Oral surgery. 18. Tonsillectomy. SOCIAL HISTORY Denies tobacco or alcohol use. ALLERGIES AUGMENTIN, BEE STING, PENICILLIN, SULFA, BENADRYL, LATEX. MEDICATIONS At home: 1. Glipizide. 2. Aspirin. 3. Amlodipine. 4. Carvedilol. 5. Levemir. 6. Spirolactone 25. 7. Pro-Air. 8. Ibuprofen. 9. Venlafaxine. 10. Ranitidine. 11. Lisinopril 40. Medications in the hospital: 1. Amlodipine 10 mg daily. 2. Glipizide 10 daily. 3. Spironolactone 25 daily. 4. Venlafaxine 225 daily. 5. Lisinopril 40 daily. 6. Insulin sliding scale. 7. Carvedilol 3.25 b.i.d. 8. Gabapentin 300 at bedtime. 9. Levemir 40 units b.i.d. subcu. PHYSICAL EXAMINATION VITAL SIGNS: Pulse 99, blood pressure 131/82, sats 96% on 2 liters nasal cannula. Temperature 98.1, respiratory rate 23, heart rate 87. GENERAL: She is alert and oriented x 3, in no distress. NECK: Supple. No JVD or bruit. CARDIOVASCULAR: S1, S2. No murmurs, rubs or gallops. LUNGS: Clear to auscultation bilaterally. ABDOMEN: Soft, nontender, nondistended with positive bowel sounds. EXTREMITIES: No lower extremity edema. IMAGING STUDIES: Chest x-ray normal examination for the patient's age, no significant change has occurred. EKG Shows sinus tachycardia at 101 beats per minute, LVH. LABORATORY DATA White count 10.4, hemoglobin 12.3, hematocrit 39.0, platelet count 266. Troponin less than 0.02 x3. Sodium 138, potassium 3.4, chloride 101, bicarb 29.5, BUN 9, creatinine 0.66, glucose 142, INR is 0.9. DIAGNOSIS 1. Unstable angina. 2. [place] Citizen Cardiovascular Society Class IV angina. 3. Dyspnea. 4. CHF. 5. Type 1 diabetes. 6. Hypokalemia. 7. Hyperglycemia. 8. Asthma. 9. Hypertension. 10. Hyperlipidemia. DISCUSSION 1. Right heart catheterization, left heart catheterization are medically necessary due to new-onset cardiac symptoms of moderate to severe chest pain at rest, [place] Citizen Cardiovascular Society IV angina, unstable angina, CHF, type 1 diabetes mellitus, history of prior myocardial infarction with symptoms similar to this, high pretest probability for significant coronary artery disease. I have explained to the patient that the risk of the heart catheterization/PCI is 5-10% chance of , stroke, heart attack, bleeding, need for dialysis, CABG, surgery, blood transfusion, anaphylaxis, arrhythmia and infection. The patient understands and consents to proceed. MD AMALIA Randall/TLL /2:35 PM /3:39 PM
[2016-09-11] MEDS ORDERED: MISC INFORMATION XX ONE (17:00)
[2016-09-11] MEDS ORDERED: SODIUM CHLORIDE 0.9% FLUSH 10 ML FLUSH PRN (17:00)
--- NOTE | 2016-09-11 17:03 | CATHPROC ---
[employer] HIS Report Study Information Study Number Admission Scheduled Start Study Start [id number] 09/11/2016 09/11/2016 Sep 11 2016 3:46PM Study Type [place] Service Left Heart Cath Cardiac Catheterization Referring Institution Admit Source Facility Department 1 Other [facility] - Damage Appraiser Physician and Clinical Staff Initial MD Bush, Donte Washcoat Wiper Tyler RN, Kacey Patterson,RT(R) Scrub Mannie Aburto,RT(R) TECH2 Procedures Performed Procedure Location (Site) Vessel Name Coronary Angiograms LCA Left Coronary Coronary Angiograms RCA Right Coronary LV Gram-hand inj. LV LV Ventricle Wire insertion Fem Art (left) Femoral Art Wire insertion Fem Vein (right) Femoral Vein Equipment Time Grader Meat Description Size Mfg Part Number Used/Scraped CATHETER, FR5 SWAN BARI 15:50 MOORE GONCALVES FR 5 [id number] *[id number] Used MONITOR TRANSDUCER, TRUWAVE [id number] 15:50 MOORE GONCALVES * Used W/STOCKCOCK *[id number] TRANSDUCER, TRUWAVE [id number] 15:50 MOORE GONCALVES * Used W/STOCKCOCK *[id number] [id number] *[id number] [id number] *[id number] *[id number] 15:50 MEDLINE INDUSTRIES PACK, CCL CUSTOM * Used *[id number] 15:50 [employer]inc. PACER PEN, SKIN DUAL W/ RULER * Used *[id number] 15:50 Zulu MEDICAL WIRE, 3MMJ .035 180CM 180CM Used *[id number] 15:50 NAMIC MANIFOLD, 2 PORT * Used *[id number] 15:50 NAMIC MANIFOLD, 4 PORT * Used *[id number] 15:50 NYCOMED OMNIPAQUE, 350 MG, 150ML 150ML [id number] Used [id number] 15:50 CRAVEN MED[employer] BLANKET,WARM AIR CCL * Used *[id number] 15:50 TERUMO MEDICAL SHEATH, FR4 TERUMO (10CM) FR 4 [id number] Used 15:50 TERUMO MEDICAL SHEATH, FR7 TERUMO (10CM) FR 7 [id number] Used History: Current Medications Medication Dosage/Unit Route Frequency Last Date/Time Taken CARVEDILOL LISINOPRIL Insulin Glypizide NORVASC History: Allergies Allergy Reaction Augmentin RASH, SOB Bee Sting Anaphylaxis Benadryl hives Latex HIVES Penicillin HIVES, SOB Sulfa SHORTNESS OF BREATH History: Risk Factors Family History of Hypertension Dyslipidemia Previous IA Previous Heart Failure Premature CAD Yes Yes Yes Yes Yes Prior Valve Prior PCI Prior CABG Surgery No No No Cerebrovascular Peripheral Artery Chronic Lung On Dialysis Diabetes Diabetes Therapy Disease Disease Disease No Yes No Yes Yes Insulin History: Symptoms/Diagnosis Selection Items SOB History: Stress Tests Stress or Imaging Studies Performed No History: Other Disease Selection Items HTN History: Other Current Smoker No Labs Hgb (g/dl) Hct (%) WBC (l/cumm) Platelets (thousands) 12.00-18.00 37.00-55.00 4.80-10.80 140.00-450.00 12.3 39 10.4 266 Glucose (mg/dl) BUN (mg/dl) Creatinine (mg/dl) BUN:Creatinine (1:x) 60.00-110.00 8.00-20.00 0.10-9.00 10.00-20.00 142 9 0.6 15 Na (meq/l) K (meq/l) 138.00-146.00 3.80-5.10 138 3.4 INR (PTT:PT) 0.50-2.00 0.9 Troponin I (ng/ml) CPK-MB (ng/ML) 0.40-2.30 0.00-7.00 0.02 Not Drawn Medication Medication Total Dose (Bolus/Oral) Medication Total Dosage/Unit 1% XYLOCAINE 40 mL FENTANYL 25 mcg Medications (Bolus/Oral) Medication Time Given Dosage/Unit Administered By Reason 1% XYLOCAINE 09/11/2016 4:06:11 PM 20 mL Donte Bush 20 mL 1% XYLOCAINE given in lab by Donte Bush in Right Groin via Subcutaneous. FENTANYL 09/11/2016 4:13:13 PM 25 mcg Fabian Scott RN 25 mcg FENTANYL given in lab by Fabian Scott RN via Peripheral IV. 1% XYLOCAINE 09/11/2016 4:20:23 PM 20 mL Donte Bush 20 mL 1% XYLOCAINE given in lab by Donte Bush in Left Groin via Subcutaneous. Medication (Drip) Medication Time Given Dosage/Unit Concentration/Unit Diluent (ml) Solution IV Solutions 09/11/2016 3:52:44 PM 0 mL (IV) 500 NaCl .9 Patient arrived on IV Solutions in Left Forearm via Peripheral IV. Pump/Drip Flow = 20 ml/hr using Na Cl .9. Ordered by Donte Bush. Initial Case Assessment Cardiovascular HR Rhythm NIBP Chest Pain 106 reg 163/97 0 Edema Present Skin color Skin None Normal Warm Circulatory - Right Pulses Dorsalis Pedis Femoral 1 1 Scale (0,1,2,3,4,d) Circulatory - Left Pulses Dorsalis Pedis Femoral 1 1 Scale (0,1,2,3,4,d) Circulatory - Lower Extremities Color Lower Right Color Lower Left Normal Normal Neurological State Oriented to time-place- Alert Moves all extremities person Respiration - General Respiration Rate SpO2 (%) (B/min) 7 98 Final Case Assessment Cardiovascular HR Rhythm NIBP Chest Pain 94 REG 139/92 0 Edema Present Skin color Skin None Normal Warm Circulatory - Right Pulses Dorsalis Pedis Femoral 1 1 Scale (0,1,2,3,4,d) Circulatory - Left Pulses Dorsalis Pedis Femoral 1 1 Scale (0,1,2,3,4,d) Circulatory - Lower Extremities Color Lower Right Color Lower Left Normal Normal Neurological State Oriented to time-place- Alert Moves all extremities person Respiration - General Respiration Rate SpO2 (%) (B/min) 15 94 Chronological Log Time Study Chronological Log 15:40:30 Patient arrived via Bed. 15:41:35 Patient Name, D.O.B, / Armband Verified By R.N. 15:42:38 Consent signed by the physician and the patient and verified by the Damage Appraiser staff. 15:43:43 Pre-op and post- op instructions given; patient acknowledges understanding of instructions. 15:44:48 Verbal Stimulation=2 Physical Stimulation=2 Airway=2 Respiration=2 TOTAL=8. (0=absent, 1=li mited, 2=present) 15:45:53 Patient has been NPO for More than 6Hrs. 15:46:57 Skin Breakdown-none 15:51:32 Reference ECG taken 15:51:58 Patient Warmer Placed on the Table. 15:52:06 A # 20 IV was noted in the Forearm (left). Grade = 0 Patient arrived on IV Solutions in Left Forearm via Peripheral IV. Pump/Drip Flow = 20 ml/hr us ing NaCl .9. Ordered by 15:52:44 Donte Bush. 15:53:36 History and physical on the chart or being dictated. Assessment: Initial Case, NA=380 BPM, Rhythm=reg, EAQX=113/97 mmhg, Chest Pain=0, Edema=None, Color=Normal, Skin = Warm Right Pulses: Sharath Ped=1, Femoral=1 Left Pulses: Sharath Ped=1, Femoral=1 15:53:38 Lower Right Extremities: Color=Normal Lower Left Extremities: Color=Normal Neurological: State=Alert, Ox3, CULLEN Respiration: Resp=7 B/min, SpO2=98 % Vitals capture started with the following parameters, Patient=Adult, Interval=15 min, Initial P zyqzear=369 mmHg, 15:53:56 Deflation Rate=5 mmHg 15:54:21 Bilateral groins prepped with 2% chlorhexidine, and with a 3 min. waiting time. 15:54:49 EV=455 bpm, IKHY=764/97 mmhg, SpO2=97.0 %, Resp=16 B/min, Pain=0, Jenny=10, Chung=2 15:59:51 QU=117 bpm, CAIL=835/106 mmhg, SpO2=97.0 %, Resp=27 B/min, Pain=0, Jenny=10, Chung=2 16:00:12 MD paged 16:01:06 Pressure channel 1 zeroed. 16:02:31 MD arrived. 16:04:52 MK=751 bpm, UIAA=322/98 mmhg, SpO2=96.0 %, Resp=31 B/min, Pain=0, Jenny=10, Chung=2 Time Out. Correct patient, correct procedure,correct physician, ,power injector not loaded with contrast with surgical 16:05:57 team present. Time Out Concurred by MD, individual staff and LABEL STAMPER in procedure 16:06:07 Case Start 16:06:11 20 mL 1% XYLOCAINE given in lab by Donte Bush in Right Groin via Subcutaneous. 16:07:18 Access site was Right Femoral Vein. 16:07:22 A wire was inserted via Fem Vein (right). 16:09:00 A SHEATH, FR7 TERUMO (10CM) FR 7 was advanced into the Fem Vein (right) using the Percutane ous technique. 16:09:49 CW=302 bpm, MYDU=775/104 mmhg, SpO2=97.0 %, Resp=10 B/min, Pain=0, Jenny=10, Chung=2 16:13:13 25 mcg FENTANYL given in lab by Fabian Scott RN via Peripheral IV. 16:15:31 BE=676 bpm, WNYM=150/72 mmhg, SpO2=97.0 %, Resp=17 B/min, Pain=0, Jenny=10, Chung=2 16:19:49 HR=89 bpm, NIBP=79/43 mmhg, SpO2=96.0 %, Resp=11 B/min, Pain=0, Jenny=10, Chung=2 16:20:23 20 mL 1% XYLOCAINE given in lab by Donte Bush in Left Groin via Subcutaneous. 16:22:05 NIBP STAT measurement started. 16:22:49 HR=83 bpm, NIBP=85/45 mmhg, SpO2=96.0 %, Resp=30 B/min, Pain=0, Jenny=10, Chung=2 16:23:25 IV LINE CONNECTED TO VENOUS LINE IN RIGHT GROIN 16:24:46 HR=93 bpm, NIBP=86/38 mmhg, SpO2=94.0 %, Resp=16 B/min, Pain=0, Jenny=10, Chung=2 16:27:20 NIBP STAT measurement started. 16:27:23 Access site was Left Femoral Artery. 16:27:29 A wire was inserted via Fem Art (left). 16:27:46 A SHEATH, FR4 TERUMO (10CM) FR 4 was advanced into the Fem Art (left) using the Percutaneou s technique. 16:27:58 HR=92 bpm, NIBP=90/57 mmhg, SpO2=91.0 %, Resp=24 B/min, Pain=0, Jenny=10, Chung=2 16:29:17 A catheter was inserted via Fem Vein (right) Recorded Pressure: PCW, HR=92, Condition=Condition 1 16:29:30 (Pulmonary Capillary Wedge) PCW Recorded Pressure: MPA, HR=94, Condition=Condition 1 16:29:54 (Main Pulmonary Artery) MPA 04/02/17 16:30:15 HR=96 bpm, TSFH=347/67 mmhg, SpO2=88.0 %, Resp=26 B/min, Pain=0, Jenny=10, Chung=2 16:30:22 Saturation: Site=Ao (Aorta) , O2=92.3 %, Hgb=12.3 gm/dl, Condition=Condition 1. Used in jayde culation. Recorded Pressure: RV, HR=93, Condition=Condition 1 16:30:57 (Right Ventricle) RV 27/2/4 Recorded Pressure: RA, HR=96, Condition=Condition 1 16:31:13 (Right Atrium) RA 9/5/4 16:31:30 Saturation: Site=PA (Pulmonary Artery) , O2=65.2 %, Hgb=12.3 gm/dl, Condition=Condition 1. Used in calculation. 16:31:45 Saturation: Site=RA (Right Atrium) , O2=66 %, Hgb=12.3 gm/dl, Condition=Condition 1. Used i n calculation. 16:32:16 [place] Catheter Removed A JR 4.0 INFINITI CATHETER FR 4 was advanced over a wire. OMNIPAQUE, 350 MG, 150ML 150ML was us ed for 16:32:46 injections. Recorded Pressure: LV, HR=93, Condition=Condition 1 16:33:34 (Left Ventricle) LV 115/5/7 16:33:40 The LV was manually injected with 10 cc's and visualized. OMNIPAQUE, 350 MG, 150ML 150ML us ed. Recorded Pressure: LV, Ao, HR=97, Condition=Condition 1 16:33:50 (Left Ventricle) LV 104/5/18, (Aorta) Ao 110/73/92 16:34:07 The RCA was injected and visualized at various angles. OMNIPAQUE, 350 MG, 150ML 150ML used . 16:34:40 HR=94 bpm, NIBP=99/68 mmhg, SpO2=97.0 %, Resp=30 B/min, Pain=0, Jenny=10, Chung=2 16:34:53 Catheter was removed A JL 4.0 INFINITI CATHETER FR 4 was advanced over a wire. OMNIPAQUE, 350 MG, 150ML 150ML was us ed for 16:35:16 injections. Recorded Pressure: Ao, HR=98, Condition=Condition 1 16:35:29 (Aorta) Ao 111/77/93 16:35:48 The LCA was injected and visualized at various angles. OMNIPAQUE, 350 MG, 150ML 150ML used . 16:36:01 Catheter was removed 16:38:36 Arterial Sheath removed; pressure applied to access site. MELVINA 16:39:55 Case End 16:40:22 HR=94 bpm, VQJF=278/86 mmhg, CvD2=585.0 %, Resp=23 B/min, Pain=0, Jenny=10, Chung=2 16:44:44 HR=92 bpm, PMMZ=195/90 mmhg, JzJ8=328.0 %, Resp=13 B/min, Pain=0, Jenny=10, Chung=2 16:46:22 Catheter(s) removed without difficulty 16:46:29 Sterile dressing applied to site 16:46:30 No case complications noted. 16:46:33 Cine recording checked. 16:46:38 Bedside Report will be given. 16:46:41 Contrast Scanned 16:46:50 A Left and Right Heart Cath was performed. 16:47:04 Clinical correlaton risk stratification. 16:49:49 HR=88 bpm, RVGI=501/98 mmhg, KmW5=484.0 %, Resp=17 B/min, Pain=0, Jenny=10, Chung=2 16:50:17 Venous Sheath removed; pressure applied to access site. Kaitlyn Aburto 16:54:48 HR=94 bpm, WHXA=426/92 mmhg, SpO2=97.0 %, Resp=15 B/min, Pain=0, Jenny=10, Chung=2 Assessment: Final Case, HR=94 BPM, Rhythm=REG, RVQY=283/92 mmhg, Chest Pain=0, Edema=None, [place] r=Normal, Skin = Warm Right Pulses: Sharath Ped=1, Femoral=1 Left Pulses: Sharath Ped=1, Femoral=1 16:54:56 Lower Right Extremities: Color=Normal Lower Left Extremities: Color=Normal Neurological: State=Alert, Ox3, CULLEN Respiration: Resp=15 B/min, SpO2=94 % 16:57:13 Vitals capture stopped. End Study - Contrast Media Used In Study Contrast Total Opened (mL) Total Used (mL) Total Wasted (mL) Omnipaque 30 30 0 End Study - Maximum Contrast Load Max Contrast Load (mL) 990.2 End Study - Radiation Exposure Fluoro Time (minutes) 1.4 End Study - Sheaths Sheaths Pulled By Sheath Hold Time (min) Mannie Aburto End Study - Patient Disposition Complications Transferred To No Critical Care Bed
[2016-09-11] MEDS: CARVEDILOL 3.125 MG TAB PO SCH (22:35)
[2016-09-11] MEDS: GABAPENTIN 300 MG CAP PO SCH (22:36)
[2016-09-11] MEDS: SODIUM CHLORIDE 0.9% FLUSH 10 ML FLUSH SCH (22:36)
[2016-09-12] VITALS (15 sets, daily range): BP systolic 127–163; BP diastolic 73–95; PULSE 81–112; RESP 16–18; TEMP 97.9–98.6; O2SAT 95–100
[2016-09-12] MEDS ORDERED: CHLORHEXIDINE GLUCONATE 2 % 1 PACK (2 CLOTHS)(taper/protocol) TOPICAL SCH (04:00)
[2016-09-12] MEDS: INSULIN ASPART SUPPLEMENTAL SCALE SQ SCH ×3 (07:00→16:00)
--- NOTE | 2016-09-12 08:56 | HHI.PR ---
Subjective Remarks Pt states she feels tired but denies any CP/SOB/N/V Objective Vitals Vital Signs Date Time Temp Pulse Resp B/P Pulse Ox O2 Delivery O2 Flow Rate FiO2 09/12/16 06:22 81 09/12/16 05:00 90 09/12/16 04:10 98.6 90 16 139/94 98 09/12/16 04:00 90 09/12/16 02:00 86 09/12/16 01:00 98 09/12/16 00:00 98 09/12/16 00:00 98.6 96 16 163/95 100 09/11/16 23:39 99 Nasal Cannula 2.00 09/11/16 23:00 92 09/11/16 22:00 92 09/11/16 21:00 98 09/11/16 20:42 98.7 98 23 138/83 96 09/11/16 20:00 108 09/11/16 19:00 100 09/11/16 17:45 97 18 139/84 96 09/11/16 17:30 97 18 152/97 95 09/11/16 17:10 98.2 92 18 157/101 97 09/11/16 17:00 92 09/11/16 14:00 99 09/11/16 12:00 98.1 101 23 131/82 96 09/11/16 12:00 101 09/11/16 10:00 100 I/O 09/11/16 09/11/16 09/11/16 09/12/16 09/12/16 09/12/16 07:00 15:00 23:00 07:00 15:00 23:00 Intake Total 0 ml 100 ml 480 ml 740 ml Output Total 500 ml 700 ml Balance -500 ml 100 ml 480 ml 40 ml Intake Oral 0 ml 100 ml 480 ml 240 ml IV Total 500 ml Output Urine Total 500 ml 700 ml # Voids 1 2 2 # Bowel Movements 0 0 Result Diagram: 09/10/16 1245 09/10/16 1245 Imaging Last Impressions Chest X-Ray 09/10/16 1237 Signed Impressions: Service Date/Time: Saturday, September 10, 2016 12:43 - CONCLUSION: Normal examination for a patient of this age. No significant change has occurred. Yonatan Hogue MD Objective Remarks GENERAL: in NAD CARDIOVASCULAR: Regular rate and rhythm without murmurs RESPIRATORY: Breath sounds equal bilaterally. No accessory muscle use. GASTROINTESTINAL: Abdomen soft, non-tender, nondistended. MUSCULOSKELETAL: No cyanosis, or edema. MSK: moves extremities well. no edema A/P Assessment and Plan Allergic reaction - Either to [place] or EKG leads - Patient is allergic to latex and Benadryl - No signs of allergic reaction at this time - Supportive care and avoid allergens Chest pain - Resolved with aspirin Nitroglycerin. patient is high risk with diabetes. hx of RI, and similar CP from prior RI. - Per chest pain center note patient was supposed to have a nuclear stress test however, cards evaluated the pt and felt that she was high risk therefore opted for right and left heart cath. official report pending. Awaiting final recs -Troponins are all negative. -Continue her current regimen. Diabetes mellitus - continue Glipizide and Levemir. controlled on current regimen - continue Insulin sliding scale Hypertension - continue Coreg which I increased to BID, continue Norvasc, lisinopril, spironolactone. Diabetic neuropathy - continue Gabapentin Depression/anxiety - Venlafaxine DVT prophylaxis - Teds SCDs, early aggressive mobilization Discharge Planning Awaiting final recs from cards Shanelle Ceja MD Sep 12, 2016 08:56
[2016-09-12] MEDS ORDERED: CARVEDILOL 3.125 MG TAB PO SCH (09:00)
[2016-09-12] MEDS: INSULIN DETEMIR 100 UNITS/ML VIAL SQ SCH (09:00)
[2016-09-12] MEDS: SODIUM CHLORIDE 0.9% FLUSH 10 ML FLUSH SCH (09:00)
[2016-09-12] MEDS: glipiZIDE 10 MG TAB PO SCH (09:04)
[2016-09-12] MEDS: LISINOPRIL 20 MG TAB PO SCH (09:05)
[2016-09-12] MEDS: SPIRONOLACTONE 25 MG TAB PO SCH (09:05)
[2016-09-12] MEDS: PANTOPRAZOLE SOD 40 MG DELAYED RELEASE TAB PO SCH (09:05)
[2016-09-12] MEDS: VENLAFAXINE HCL XR 75 MG CAP PO SCH (09:05)
--- NOTE | 2016-09-12 13:45 | PD.CARD.PN ---
Subjective Subjective Remarks assymptomatic Objective Vital Signs / I&O Vital Signs Date Time Temp Pulse Resp B/P Pulse Ox O2 Delivery O2 Flow Rate FiO2 09/12/16 12:00 97.9 90 18 127/73 96 09/12/16 10:10 18 09/12/16 10:02 99 09/12/16 08:00 98.4 89 18 152/90 95 09/12/16 06:22 81 09/12/16 05:00 90 09/12/16 04:10 98.6 90 16 139/94 98 09/12/16 04:00 90 09/12/16 02:00 86 09/12/16 01:00 98 09/12/16 00:00 98 09/12/16 00:00 98.6 96 16 163/95 100 09/11/16 23:39 99 Nasal Cannula 2.00 09/11/16 23:00 92 09/11/16 22:00 92 09/11/16 21:00 98 09/11/16 20:42 98.7 98 23 138/83 96 09/11/16 20:00 108 09/11/16 19:00 100 09/11/16 17:45 97 18 139/84 96 09/11/16 17:30 97 18 152/97 95 09/11/16 17:10 98.2 92 18 157/101 97 09/11/16 17:00 92 09/11/16 14:00 99 I/O 09/11/16 09/11/16 09/11/16 09/12/16 09/12/16 09/12/16 07:00 15:00 23:00 07:00 15:00 23:00 Intake Total 0 ml 100 ml 480 ml 740 ml Output Total 500 ml 700 ml Balance -500 ml 100 ml 480 ml 40 ml Intake Oral 0 ml 100 ml 480 ml 240 ml IV Total 500 ml Output Urine Total 500 ml 700 ml # Voids 1 2 2 # Bowel Movements 0 0 Laboratory GENERAL: SKIN: Warm and dry. HEAD: Normocephalic. EYES: No scleral icterus. No injection or drainage. NECK: Supple, trachea midline. No JVD or lymphadenopathy. CARDIOVASCULAR: Regular rate and rhythm without murmurs, gallops, or rubs. RESPIRATORY: Breath sounds equal bilaterally. No accessory muscle use. GASTROINTESTINAL: Abdomen soft, non-tender, nondistended. MUSCULOSKELETAL: No cyanosis, or edema. BACK: Nontender without obvious deformity. No CVA tenderness. Assessment and Plan Problem List: (1) Chest pain (2) Hypertension (3) DM (diabetes mellitus) Assessment and Plan 1.) chest pain - resolved, mild cad. rec aspirin 81 mg qd, statin Problem Qualifiers (1) Chest pain: Qualified Code: R07.9 - Chest pain, unspecified type Donte Bush MD Sep 12, 2016 13:45
[2016-09-12] MEDS ORDERED: ASPIRIN EC 81 MG TABEC PO ONE (14:00)
[2016-09-12] MEDS ORDERED: LIPI10TA PO (17:00)
[2016-09-12] MEDS ORDERED: CARV3.125 PO (17:00)
--- NOTE | 2016-09-12 17:03 | HHI.DS ---
Discharge Summary Admission Date September 11, 2016 at 00:15 Discharge Date: Sep 12, 2016 Admitting Diagnosis chest pain (1) CAD (coronary artery disease) ICD Code: I25.10 Diagnosis: Principal (2) Chest pain ICD Code: R07.9 Diagnosis: Principal (3) Hypertension ICD Code: I10 Diagnosis: Principal (4) Hyperlipidemia ICD Code: E78.5 Diagnosis: Principal (5) DM (diabetes mellitus) ICD Code: E11.9 Diagnosis: Secondary Procedures cardiac cath Brief History - From Admission 46-year-old female with past medical history of type 1 diabetes, rheumatoid arthritis, and anxiety presents to the emergency room for further evaluation of intermittent chest pain. Onset Friday while at work. Location left anterior chest described as a "sharp pain and that someone was sitting on my chest." Duration approximately 25 minutes. Pain gradually subsided. Initial episode she did not have radiation of pain. No associated symptoms. Since Friday she has experienced intermittent sharp pain in her left anterior chest "multiple times." Today she developed severe pain with radiation to her epigastric area, right arm, right shoulder, and right leg. Nonexertional component. Associated symptoms today included blurred vision and she felt she could not walk. Laying down helped pain. Sitting up makes pain worse. No particular movements or deep breathing makes pain better or worse. She has never had pain this in the past. Pain has been constant since this a.m. Currently rates her pain at a level 9/10. Currently no radiation of CBC/BMP: 09/10/16 1245 09/10/16 1245 Significant Findings Laboratory Tests Test 09/10/16 09/10/16 09/10/16 12:45 18:00 20:04 Mean Corpuscular Hemoglobin 26.8 PG (27.0-34.0) Mean Corpuscular Hemoglobin 31.5 % Concent (32.0-36.0) Lymphocytes (%) (Auto) 45.6 % (9.0-44.0) Potassium Level 3.4 MEQ/L (3.5-5.1) Random Glucose 142 MG/DL (74-106) Calcium Level 8.4 MG/DL (8.5-10.1) Troponin I LESS THAN 0.02 LESS THAN 0.02 LESS THAN 0.02 NG/ML NG/ML NG/ML (0.02-0.05) (0.02-0.05) (0.02-0.05) Albumin 3.1 GM/DL (3.4-5.0) Creatine Kinase MB LESS THAN 0.5 NG/ML (0.5-3.6) Imaging Last Impressions Chest X-Ray 09/10/16 2087 Signed Impressions: Service Date/Time: Saturday, September 10, 2016 12:43 - CONCLUSION: Normal examination for a patient of this age. No significant change has occurred. Yonatan Hogue MD PE at Discharge GENERAL: in NAD CARDIOVASCULAR: Regular rate and rhythm without murmurs RESPIRATORY: Breath sounds equal bilaterally. No accessory muscle use. GASTROINTESTINAL: Abdomen soft, non-tender, nondistended. MUSCULOSKELETAL: No cyanosis, or edema. MSK: moves extremities well. no edema Hospital Course Allergic reaction - Pt developed an allergic reaction to either to [place] or EKG leads. Patient has an known allergy to latex and Benadryl. Pt was monitored and reaction resolved on its own. Chest pain - She presented w chest pain which resolved with aspirin Nitroglycerin. patient was considered high risk with diabetes. hx of [place], and similar CP from prior OR. cards evaluated the pt and felt that she was high risk therefore opted for right and left heart cath which showed mild CAD. Pt was cleared by cards for d/c Hypertension - Coreg dose was increased to BID, continue outpatient Norvasc, lisinopril, spironolactone. Pt Condition on Discharge: Stable Discharge Disposition: Discharge Home Discharge Time: > 30 minutes Discharge Instructions DIET: Follow Instructions for: Heart Healthy Diet, Diabetic Diet Activities you can perform: Regular-No Restrictions Follow up Referrals: Cardiology - 2 Weeks Physician - 1 Week New Medications: Atorvastatin (Lipitor) 10 Mg Tab 10 MG PO HS Days 30 TAB Carvedilol (Coreg) 3.125 Mg Tab 3.125 MG PO BID Days 30 TAB Continued Medications: Albuterol 8.5 GM Inh (Proair Hfa 8.5 GM Inh) 90 Mcg/Act Aer 2 PUFF INH Q4-6H 108 mcg/actuation PRN SHORTNESS OF BREATH #1 Ref 0 INHALER Amlodipine (Amlodipine) 10 Mg Tab 10 MG PO DAILY Blood Pressure Management #30 Ref 0 TAB Aspirin (Aspirin 81 Low Dose) 81 Mg Chew 81 MG CHEW DAILY #30 TAB Gabapentin (Gabapentin) 400 Mg Cap 400 CAP PO HS #30 Ref 0 CAP Glipizide (Glipizide) 10 Mg Tab 10 MG PO DAILY Take 30 minutes before a meal Blood Sugar Management #30 Ref 0 TAB Ibuprofen (Ibuprofen) 800 Mg Tab 800 MG PO Q8H PRN PAIN SCALE 1 TO 5 Ref 0 TAB Insulin Detemir Inj (Levemir Inj) 1,000 unit/ 10 ML Vial 40 UNITS SQ BID Do not mix with any other Insulin. Blood Sugar Management Ref 0 VIAL Lisinopril (Lisinopril) 40 Mg Tab 40 MG PO DAILY Blood Pressure Management #30 Ref 0 TAB Ranitidine (Ranitidine) 150 Mg Tab 150 MG PO HS Heartburn Management #30 Ref 0 TAB Spironolactone (Spironolactone) 25 Mg Tab 25 MG PO DAILY #30 Ref 0 TAB Tramadol (Ultram) 50 Mg Tab 50 MG PO Q4H PRN PAIN #10 Ref 0 TAB Venlafaxine ER 24 HR (Venlafaxine ER 24 HR) 150 Mg Cap 150 MG PO DAILY #30 Ref 0 CAP Venlafaxine ER 24 HR (Venlafaxine ER 24 HR) 75 Mg Cap 75 MG PO DAILY #30 Ref 0 CAP Discontinued Medications: Carvedilol (Carvedilol) 3.125 Mg Tab 3.125 MG PO HS #60 Ref 0 TAB Shanelle Ceja MD Sep 12, 2016 17:03
[2016-09-12] MEDS ORDERED: ATORVASTATIN 10 MG TAB PO SCH (21:00)
[2016-09-13] MEDS ORDERED: ASPIRIN EC 81 MG TABEC PO SCH (09:00)
--- NOTE | 2016-09-13 19:05 | MA ---
cc: MAYCO LOPES M.D. DATE 09/11/2016 PROCEDURE Right heart catheterization, left heart catheterization, left ventriculography, coronary angiography. INDICATIONS Unstable angina, new onset chest pain at rest. [place] Cardiovascular Society Class IV angina. [place] Heart Association class IV congestive heart failure. Dyspnea, diabetes mellitus, history of myocardial infarction in the past. The patient was brought to the cardiac catheterization laboratory. Prepped and draped in the usual sterile fashion. PROCEDURE IN DETAIL 10 cc of 1% lidocaine was used to locally anesthetize the right common femoral artery. 7-German sheath placed in the right common femoral vein. I was not able to access the right common femoral artery after multiple attempts. Therefore, I obtained access to the left common femoral artery, placed a 4-German sheath in the left common femoral artery. Right heart catheterization was performed first with the following findings: Pulmonary capillary wedge pressure 14/9-7; PA pressure 24/10-17; RV pressure 27/2-4; RA pressure 9/5-4. The cardiac output by Kiah 6.1 liters per minute. Cardiac index by Kiah 2.8 liters meters squared per minute. SVR 1150.1 dynes. Femoral artery sat on room air 92.3%. PA sat on room air 65.2%. RA sat on room air 66%. Left heart catheterization was then performed with a 4-German JR-4, JL-4 catheter with the following findings: LV pressure 115/ 5-8; EF 60%; right coronary is large and dominant, has no significant obstructive disease. The right PDA has 10 to 20% proximal stenosis. Right posterolateral artery has no significant disease angiographically. The proximal right ostial right has approximately 20-30% stenosis. It is a large vessel even in this relatively stenotic area. It is probably at least 4 mm in diameter. Left main coronary artery has no significant disease angiographically. Left circumflex vessel has no significant disease angiographically. First obtuse marginal vessel is a medium sized vessel. It comes off the mid AV groove left circ and has no significant obstructive disease. The remainder of the AV groove left circumflex vessel supplies two small posterolateral arteries with no obvious stenosis. LAD is transapical. There is mild disease in the mid segment up to 28% angiographically. First and second diagonal artery is a medium-sized vessel, no significant disease angiographically. CONCLUSION 1. Angiographically mild two-vessel coronary artery disease in a right dominant system as detailed above. 2. Normal LV systolic function, EF 60%. 3. Normal right heart pressures as detailed above. 4. Recommend medical management of coronary artery disease, cardiac risk factor modification. The patient will follow up with her delinquent tax collector in [place]. MD AMALIA Randall/MURIEL /4:45 PM /6:42 PM
== END 2016-09-12 18:35 | disposition home or self-care (01) | DRG 287 ==
LOC: NEPC 12:29 → NEDA 13:54 → NEPHCDU 14:47 → OBSVTOIN 09-11 00:15 → HIMN 09-11 01:45 → HCIS 09-11 17:14
PROVIDERS: ADMIT Hospitalist; ATTEND Hospitalist
PROC: B2161ZZ Fluoroscopy of Right and Left Heart using Low Osmolar Contrast (ICD-10-PCS; 2016-09-11)
PROC: 4A023N8 Measurement of Cardiac Sampling and Pressure, Bilateral, Percutaneous Approach (ICD-10-PCS; 2016-09-11)
PROC: B2151ZZ Fluoroscopy of Left Heart using Low Osmolar Contrast (ICD-10-PCS; 2016-09-11)
PROC: B2111ZZ Fluoroscopy of Multiple Coronary Arteries using Low Osmolar Contrast (ICD-10-PCS; principal; 2016-09-11 14:45)
DX: I25.110 Atherosclerotic heart disease of native coronary artery with unstable angina pectoris (principal); I11.0 Hypertensive heart disease with heart failure; E10.40 Type 1 diabetes mellitus with diabetic neuropathy, unspecified; I50.9 Heart failure, unspecified; I25.2 Old myocardial infarction; F32.9 Major depressive disorder, single episode, unspecified; F41.9 Anxiety disorder, unspecified; J45.909 Unspecified asthma, uncomplicated; Z79.01 Long term (current) use of anticoagulants; K21.9 Gastro-esophageal reflux disease without esophagitis; G47.30 Sleep apnea, unspecified; Z79.84 Long term (current) use of oral hypoglycemic drugs; Z79.82 Long term (current) use of aspirin; Z79.4 Long term (current) use of insulin; M06.9 Rheumatoid arthritis, unspecified; Z82.49 Family history of ischemic heart disease and other diseases of the circulatory system; K59.00 Constipation, unspecified; Z91.040 Latex allergy status; E10.65 Type 1 diabetes mellitus with hyperglycemia; E87.6 Hypokalemia; E78.5 Hyperlipidemia, unspecified; T78.49XA Other allergy, initial encounter; Z86.73 Personal history of transient ischemic attack (TIA), and cerebral infarction without residual deficits
CPT/HCPCS: 71010; 76937; 80053; 82550; 82552; 82948; 83690; 83735; 84484; 85025; 85379; 85610; 85730; 87641; 93005; 93460; 99285; C1769; C1893; J1644; J3010

== ENCOUNTER 2016-09-30 22:27 | Emergency (ER) | payer OTHER ==
[~2016-09-30] VITALS: Ht 165.1 cm; Wt 119.3 kg
[~2016-09-30 22:27] MED LIST changes: -CARV3.12 PO; +CARV3.125 PO; +GABA400C5 PO; +LIPI10TA PO; +VENL150C39 PO; -VENL225T PO; +VENL75CA44 PO
[2016-09-30 22:38] VITALS: BP 172/119; PULSE 101; RESP 22; TEMP 98.4; O2SAT 100
[2016-09-30 22:55] VITALS: BP 170/99; PULSE 93; RESP 20; O2SAT 97
--- NOTE | 2016-09-30 23:00 | PD ---
HPI Chief Complaint: Pain: Acute or Chronic Time Seen by Provider: 22:49 Travel History International Travel<30 days: No Contact w/Intl Traveler<30days: No Traveled to known affect area: No History of Present Illness HPI The patient is a 46-year-old female that 2 weeks ago underwent cardiac catheterization and, since then, she has complained of pain and swelling in her left leg and the groin area to the knee. She denies any fever, chest pain, shortness of breath, hemoptysis, nausea or vomiting or syncopal or near syncopal spells. PFSH Past Medical History Hx Anticoagulant Therapy: Yes Arthritis: Yes Asthma: Yes Autoimmune Disease: Yes (Rheumatoid Arthritis) Blood Disorders: No Anxiety: Yes Depression: Yes Heart Rhythm Problems: No Cancer: No Cardiac Catheterization: Yes Cardiovascular Problems: Yes (CHF HEART ATTACK X3) High Cholesterol: Yes Chemotherapy: No Chest Pain: Yes Congestive Heart Failure: Yes (from chronic htn per pt) COPD: Yes (chronic bronchitis) Cerebrovascular Accident: Yes Diabetes: Yes Patient Takes Glucophage: No Diminished Hearing: No Endocrine: Yes Gastrointestinal Disorders: Yes GERD: Yes (GERD) Genitourinary: No Headaches: Yes Hiatal Hernia: No Hypertension: Yes Immune Disorder: No Implanted Vascular Access Dvce: Yes Kidney Stones: No Musculoskeletal: Yes Neurologic: Yes (NEUROPATHY) Psychiatric: Yes Reproductive: Yes (UTERINE ABLATION) Respiratory: Yes (ASTHMA) Immunizations Current: Yes Migraines: Yes Myocardial Infarction: Yes Radiation Therapy: No Renal Failure: No Seizures: No Sickle Cell Disease: No Sleep Apnea: Yes (CPAP) Thyroid Disease: No Ulcer: No Tetanus Vaccination: > 5 Years Influenza Vaccination: Yes ?: Not LMP: ABLATION : 2 Para: 2 Tubal Ligation: Yes Past Surgical History Abdominal Surgery: Yes (choley) AICD: No Cardiac Surgery: Yes (Cardiac Cath ) Section: Yes (X 2) Cholecystectomy: Yes Coronary Artery Bypass Graft: No Ear Surgery: No Eye Surgery: No Genitourinary Surgery: Yes (Gallbladder removed 2007) Gynecologic Surgery: Yes (UTERINE ABLATION, 2003/ tubal ligation ) Hysterectomy: Yes Insulin Pump: No Joint Replacement: No Oral Surgery: Yes (tonsils and adenoids) Pacemaker: No Thoracic Surgery: No Tonsillectomy: Yes Other Surgery: Yes (c/sect.x2,cholest.,t/a, uterine ablation) Family History Family Myocardial Infarction: Yes Social History Alcohol Use: No Tobacco Use: No Substance Use: No Allergies-Medications (Allergen,Severity, Reaction): Coded Allergies: Augmentin (Unverified Allergy, Severe, RASH, SOB, 09/30/16) Bee Sting (Verified Allergy, Severe, Anaphylaxis, 09/30/16) Penicillin (Unverified Allergy, Severe, HIVES, SOB, 09/30/16) Sulfa (Unverified Allergy, Severe, SHORTNESS OF BREATH, 09/30/16) Benadryl (Verified Allergy, Intermediate, hives, 09/30/16) Latex (Unverified Allergy, Unknown, HIVES, 09/30/16) Norvasc (Verified Allergy, Unknown, RASH SOB, 09/30/16) Reported Meds & Prescriptions Reported Meds & Active Scripts Active Lipitor (Atorvastatin Calcium) 10 Mg Tab 10 Mg PO HS 30 Days Coreg (Carvedilol) 3.125 Mg Tab 3.125 Mg PO BID 30 Days Ultram (Tramadol HCl) 50 Mg Tab 50 Mg PO Q4H PRN Reported Venlafaxine ER 24 HR (Venlafaxine HCl) 75 Mg Cap 75 Mg PO DAILY Venlafaxine ER 24 HR (Venlafaxine HCl) 150 Mg Cap 150 Mg PO DAILY Gabapentin 400 Mg Cap 400 Cap PO HS Glipizide 10 Mg Tab 10 Mg PO DAILY Take 30 minutes before a meal Aspirin 81 Low Dose (Aspirin) 81 Mg Chew 81 Mg CHEW DAILY Amlodipine (Amlodipine Besylate) 10 Mg Tab 10 Mg PO DAILY Levemir Inj (Insulin Detemir) 1,000 unit/ 10 ML Vial 40 Units SQ BID Do not mix with any other Insulin. Spironolactone 25 Mg Tab 25 Mg PO DAILY Proair Hfa 8.5 GM Inh (Albuterol Sulfate) 90 Mcg/Act Aer 2 Puff INH Q4-6H PRN 108 mcg/actuation Ibuprofen 800 Mg Tab 800 Mg PO Q8H PRN Ranitidine (Ranitidine HCl) 150 Mg Tab 150 Mg PO HS Lisinopril 40 Mg Tab 40 Mg PO DAILY Review of Systems Except as stated in HPI: all other systems reviewed are Neg Physical Exam Narrative GENERAL: The patient is alert, oriented 3 in no respiratory distress. She is obese. Her vital signs show blood pressure 172/119 with heart rate of 101 and respirations of 22 and oximetry is 100% and temperature is 98.4. SKIN: Focused skin assessment warm/dry. No skin rash is seen. HEAD: Atraumatic. Normocephalic. EYES: Pupils equal and round. No scleral icterus. No injection or drainage. ENT: No nasal bleeding or discharge. Mucous membranes pink and moist. NECK: Trachea midline. No JVD. CARDIOVASCULAR: Regular rate and rhythm. No murmur appreciated. RESPIRATORY: No accessory muscle use. Clear to auscultation. Breath sounds equal bilaterally. GASTROINTESTINAL: Abdomen soft, non-tender, nondistended. Hepatic and splenic margins not palpable. MUSCULOSKELETAL: No obvious deformities. No clubbing. No cyanosis. The left leg is grossly larger than the right leg and there is tenderness diffusely over the left leg. No erythema is seen and no skin rashes noted. No cord is palpated in the calf. Homans sign is negative. NEUROLOGICAL: Awake and alert. No obvious cranial nerve deficits. Motor grossly within normal limits. Normal speech. PSYCHIATRIC: Appropriate mood and affect; insight and judgment normal. Data Data Last Documented VS Vital Signs Date Time Temp Pulse Resp B/P Pulse Ox O2 Delivery O2 Flow Rate FiO2 09/30/16 22:55 93 20 170/99 97 Room Air 09/30/16 22:38 98.4 Orders Us Leg Venous Doppler (09/30/16 22:55) Complete Blood Count With Diff (09/30/16 23:00) Comprehensive Metabolic Panel (09/30/16 23:00) MDM Medical Decision Making Medical Screen Exam Complete: Yes Emergency Medical Condition: Yes Medical Record Reviewed: Yes Interpretation(s) The ultrasound is negative for DVT. Differential Diagnosis DVT, leg swelling due to poor venous return, Narrative Course The patient appears to have leg swelling due to poor venous return. There is no evidence for DVT. The patient is told that if her leg swelling increases that she should return in 2 weeks and repeat ultrasound may be warranted. She should elevate her leg above her heart to decrease swelling. Diagnosis Primary Impression: Left leg swelling Additional Instructions: As we discussed, elevate the leg above your heart to decrease the swelling. We will give you Motrin, 600 mg 3 times daily for pain. Med/Other Pt SpecificInfo: Prescription(s) given Scripts Ibuprofen 600 Mg [id number] Mg PO TID #44 TAB Ref 0 Prov:Dusty Marie MD 10/01/16 Disposition: 01 DISCHARGE HOME Condition: Stable Dusty Marie MD Sep 30, 2016 22:59
[2016-09-30 23:38] LABS: BASOPHIL % 0.4 % (0.0-2.0); EOSINOPHIL # 0.2 TH/MM3 (0-0.4); EOSINOPHIL % 1.5 % (0.0-4.0); LYMPH % 58.2 % (9.0-44.0); LYMPHOCYTE # 6.8 TH/MM3 (1.0-4.8); MEAN CELL VOLUME 82.7 FL (80.0-100.0); MEAN CORPUSCULAR HEMOGLOBIN 27.7 PG (27.0-34.0); MEAN CORPUSCULAR HGB CONC 33.5 % (32.0-36.0); NEUT % 34.9 % (16.0-70.0); PLATELET COUNT 281 TH/MM3 (150-450); RED BLOOD COUNT 4.36 MIL/MM3 (4.00-5.30); RED CELL DISTRIBUTION WIDTH 13.2 % (11.6-17.2); WHITE BLOOD COUNT 11.6 TH/MM3 (4.0-11.0)
--- NOTE | 2016-09-30 23:47 | RADHPO ---
EXAM DATE/TIME: 09/30/2016 23:24 [facility] COMPARISON: No previous studies available for comparison. INDICATIONS : Left leg pain. MEDICAL HISTORY : Myocardial infarction. Hypertension. Left leg pain. SURGICAL HISTORY : Tonsillectomy. Tubal ligation. Hysterectomy. ENCOUNTER: Initial ACUITY: 2 day PAIN SCORE: 3/10 LOCATION: Left leg. TECHNIQUE: Venous ultrasound of the leg was performed from the inguinal ligament to the proximal calf. Real-yudy e, color Doppler and spectral tracing, compression and augmentation techniques were used. FINDINGS: There is normal compressibility of the deep venous system from the inguinal region to the proximal ca lf. No echogenic clot is seen in the lumen of the common femoral, femoral, popliteal, and posterior tibial veins. There is a normal response of the venous system to proximal and distal augmentation an d respiration. CONCLUSION: Negative study. No DVT of the left lower extremity. Gavin López MD on September 30, 2016 at 23:45 Board Certified Radiologist. This report was verified electronically.
[2016-10-01] MEDS ORDERED: IBUP-232 PO (00:05)
[2016-10-01 00:14] LABS: HEMO FLAGS AUTO DIFF
[2016-10-01 00:18] VITALS: BP 159/91
[2016-10-01 00:56] LABS: EOSINOPHILS 2 % (0-4); NEUTROPHIL # MANUAL DIFF 3.7 TH/MM3 (1.8-7.7); POLYS (SEG NEUTROPHILS) 32 % (16-70); WBC DIFF SAMPLE 100
[2016-10-01 00:58] LABS: PLATELET ESTIMATE SMEAR NORMAL (NORMAL); PLATELET MORPHOLOGY CLUMPED (NORMAL); SCAN/DIFF FINAL DIFF MANUAL
[2016-10-01 00:59] LABS: ALKALINE PHOSPHATASE 105 U/L (45-117); ALT (GPT) 24 U/L (10-53); ANION GAP 10 MEQ/L (5-15); AST (GOT) 20 U/L (15-37); BICARBONATE 31.9 MEQ/L (21.0-32.0); BLOOD UREA NITROGEN 9 MG/DL (7-18); CHLORIDE 100 MEQ/L (98-107); GLOMERULAR FILTRATION RATE 94 ML/MIN (>89); SODIUM (NA) 142 MEQ/L (136-145); TOTAL BILIRUBIN ADULT 0.1 MG/DL (0.2-1.0)
[2016-10-01 01:01] LABS: POTASSIUM 2.7 MEQ/L (3.5-5.1)
== END 2016-10-01 00:27 | disposition home or self-care (01) ==
LOC: PHED 22:27
DX: R60.0 Localized edema (principal); J45.909 Unspecified asthma, uncomplicated; E78.00 Pure hypercholesterolemia, unspecified; I50.9 Heart failure, unspecified; I25.2 Old myocardial infarction; I10 Essential (primary) hypertension; Z79.01 Long term (current) use of anticoagulants; Z86.73 Personal history of transient ischemic attack (TIA), and cerebral infarction without residual deficits; E11.9 Type 2 diabetes mellitus without complications
CPT/HCPCS: 80053; 85007; 85027; 93971; 99284

== ENCOUNTER 2016-10-20 12:45 | Emergency (ER) | payer OTHER ==
[~2016-10-20] VITALS: Ht 165.1 cm; Wt 88.0 kg
[~2016-10-20 12:45] MED LIST changes: +IBUP-232 PO
[2016-10-20 12:50] VITALS: BP 184/108; PULSE 99; RESP 22; O2SAT 97
[2016-10-20] MEDS ORDERED: SODIUM CHLORIDE 0.9% FLUSH 10 ML FLUSH IVF PRN (13:00)
[2016-10-20 13:02] VITALS: O2SAT 100
[2016-10-20 13:09] VITALS: BP 180/73; PULSE 100; RESP 16; TEMP 98.1; O2SAT 97
--- NOTE | 2016-10-20 13:10 | PD ---
HPI Chief Complaint: Chest Pain Time Seen by Provider: 12:58 Travel History International Travel<30 days: No Contact w/Intl Traveler<30days: No Traveled to known affect area: No History of Present Illness HPI 46yo F with DM, RA, anxiety presents to the ED with c/o left sided chest pain about an hour ago. Pain is sharp, intermittent, lasts seconds at a time and radiates down left arm and leg. [place] some tingling in left fingers. States today is her daughter's anniversary so she was feeling very upset. Denies any fever, sob, vomiting, abdominal pain, focal weakness. Pt just had a cardiac cath by Dr. Bush on 09/13/16 that showed mild 2 vessel CAD. PFSH Past Medical History Hx Anticoagulant Therapy: Yes Arthritis: Yes Asthma: Yes Autoimmune Disease: Yes (Rheumatoid Arthritis) Blood Disorders: No Anxiety: Yes Depression: Yes Heart Rhythm Problems: No Cancer: No Cardiac Catheterization: Yes Cardiovascular Problems: Yes High Cholesterol: Yes Chemotherapy: No Chest Pain: Yes Congestive Heart Failure: Yes (from chronic htn per pt) COPD: Yes (chronic bronchitis) Cerebrovascular Accident: Yes Diabetes: Yes Patient Takes Glucophage: No Diminished Hearing: No Endocrine: Yes Gastrointestinal Disorders: Yes GERD: Yes (GERD) Genitourinary: No Headaches: Yes Hiatal Hernia: No Hypertension: Yes Immune Disorder: No Implanted Vascular Access Dvce: Yes Kidney Stones: No Musculoskeletal: Yes Neurologic: Yes (NEUROPATHY) Psychiatric: Yes Reproductive: Yes (UTERINE ABLATION) Respiratory: Yes (ASTHMA) Immunizations Current: Yes Migraines: Yes Myocardial Infarction: Yes Radiation Therapy: No Renal Failure: No Seizures: No Sickle Cell Disease: No Sleep Apnea: Yes (CPAP) Thyroid Disease: No Ulcer: No ?: Not : 2 Para: 2 Tubal Ligation: Yes Past Surgical History Abdominal Surgery: Yes (choley) AICD: No Cardiac Surgery: Yes (Cardiac Cath ) Section: Yes (X 2) Cholecystectomy: Yes Coronary Artery Bypass Graft: No Ear Surgery: No Eye Surgery: No Genitourinary Surgery: Yes (Gallbladder removed 2007) Gynecologic Surgery: Yes (UTERINE ABLATION, 2003/ tubal ligation ) Hysterectomy: Yes Insulin Pump: No Joint Replacement: No Oral Surgery: Yes (tonsils and adenoids) Pacemaker: No Thoracic Surgery: No Tonsillectomy: Yes Other Surgery: Yes (c/sect.x2,cholest.,t/a, uterine ablation) Family History Family Myocardial Infarction: Yes Social History Alcohol Use: No Tobacco Use: No Substance Use: No Allergies-Medications (Allergen,Severity, Reaction): Coded Allergies: Augmentin (Unverified Allergy, Severe, RASH, SOB, 10/20/16) Bee Sting (Verified Allergy, Severe, Anaphylaxis, 10/20/16) Penicillin (Unverified Allergy, Severe, HIVES, SOB, 10/20/16) Sulfa (Unverified Allergy, Severe, SHORTNESS OF BREATH, 10/20/16) Benadryl (Verified Allergy, Intermediate, hives, 10/20/16) Latex (Unverified Allergy, Unknown, HIVES, 10/20/16) Norvasc (Verified Allergy, Unknown, RASH SOB, 10/20/16) Reported Meds & Prescriptions Reported Meds & Active Scripts Active Ibuprofen 600 Mg Tab 600 Mg PO TID Lipitor (Atorvastatin Calcium) 10 Mg Tab 10 Mg PO HS 30 Days Coreg (Carvedilol) 3.125 Mg Tab 3.125 Mg PO BID 30 Days Ultram (Tramadol HCl) 50 Mg Tab 50 Mg PO Q4H PRN Reported Venlafaxine ER 24 HR (Venlafaxine HCl) 75 Mg Cap 75 Mg PO DAILY Venlafaxine ER 24 HR (Venlafaxine HCl) 150 Mg Cap 150 Mg PO DAILY Gabapentin 400 Mg Cap 400 Cap PO HS Glipizide 10 Mg Tab 10 Mg PO DAILY Take 30 minutes before a meal Aspirin 81 Low Dose (Aspirin) 81 Mg Chew 81 Mg CHEW DAILY Amlodipine (Amlodipine Besylate) 10 Mg Tab 10 Mg PO DAILY Levemir Inj (Insulin Detemir) 1,000 unit/ 10 ML Vial 40 Units SQ BID Do not mix with any other Insulin. Spironolactone 25 Mg Tab 25 Mg PO DAILY Proair Hfa 8.5 GM Inh (Albuterol Sulfate) 90 Mcg/Act Aer 2 Puff INH Q4-6H PRN 108 mcg/actuation Ibuprofen 800 Mg Tab 800 Mg PO Q8H PRN Ranitidine (Ranitidine HCl) 150 Mg Tab 150 Mg PO HS Lisinopril 40 Mg Tab 40 Mg PO DAILY Review of Systems Except as stated in HPI: all other systems reviewed are Neg Physical Exam Narrative GEN: 46yo F in mild distress. Skin: Warm and dry. HEAD: Normocephalic, atraumatic. EYE: Pupils equal and reactive bilaterally. NECK: No JVD. Trachea midline. CV: S1, S2. Lungs: CTA B/L, equal breath sounds. Abd: soft, NT/ND. EXT: No edema. Neuro: No focal neurologic deficits. Data Data Last Documented VS Vital Signs Date Time Temp Pulse Resp B/P Pulse Ox O2 Delivery O2 Flow Rate FiO2 10/20/16 13:50 150/61 10/20/16 13:39 99 22 97 10/20/16 13:09 98.1 Room Air Orders Basic Metabolic Panel (Bmp) (10/20/16 12:58) Ckmb (Isoenzyme) Profile (10/20/16 12:58) Complete Blood Count With Diff (10/20/16 12:58) Magnesium (Mg) (10/20/16 12:58) Prothrombin Time / Inr (Pt) (10/20/16 12:58) Act Partial Throm Time (Ptt) (10/20/16 12:58) Troponin I (10/20/16 12:58) Chest, Single Ap (10/20/16 12:58) Ecg Monitoring (10/20/16 12:58) Bilateral Bp Monitoring (10/20/16 12:58) Iv Access Insert/Monitor (10/20/16 12:58) Oximetry (10/20/16 12:58) Oxygen Administration (10/20/16 12:58) Sodium Chloride 0.9% Flush (Ns Flush) (10/20/16 13:00) Nitroglycerin Sl (Nitrostat Sl) (10/20/16 13:00) Cta Thor Abd Aorta W Iv C W3d (10/20/16 13:16) Acetaminophen (Tylenol) (10/20/16 13:45) Electrocardiogram (10/20/16 12:56) Iohexol 350 Inj (Omnipaque 350 Inj) (10/20/16 14:54) Ibuprofen (Motrin) (10/20/16 17:00) Labs Laboratory Tests Test 10/20/16 13:05 White Blood Count 11.0 TH/MM3 Red Blood Count 4.49 MIL/MM3 Hemoglobin 12.0 GM/DL Hematocrit 38.0 % Mean Corpuscular Volume 84.5 FL Mean Corpuscular Hemoglobin 26.6 PG Mean Corpuscular Hemoglobin 31.5 % Concent Red Cell Distribution Width 14.7 % Platelet Count 250 TH/MM3 Mean Platelet Volume 10.5 FL Neutrophils (%) (Auto) 47.1 % Lymphocytes (%) (Auto) 46.9 % Monocytes (%) (Auto) 3.8 % Eosinophils (%) (Auto) 1.1 % Basophils (%) (Auto) 1.1 % Neutrophils # (Auto) 5.2 TH/MM3 Lymphocytes # (Auto) 5.2 TH/MM3 Monocytes # (Auto) 0.4 TH/MM3 Eosinophils # (Auto) 0.1 TH/MM3 Basophils # (Auto) 0.1 TH/MM3 CBC Comment AUTO DIFF Differential Total Cells 100 Counted Neutrophils % (Manual) 55 % Band Neutrophils % 1 % Lymphocytes % 37 % Monocytes % 6 % Eosinophils % 1 % Neutrophils # (Manual) 6.2 TH/MM3 Differential Comment FINAL DIFF MANUAL Platelet Estimate NORMAL Platelet Morphology Comment NORMAL Red Cell Morphology Comment NORMAL Prothrombin Time 10.0 SEC Prothromb Time International 0.9 RATIO Ratio Activated Partial 26.1 SEC Thromboplast Time Sodium Level 138 MEQ/L Potassium Level 3.5 MEQ/L Chloride Level 103 MEQ/L Carbon Dioxide Level 26.8 MEQ/L Anion Gap 8 MEQ/L Blood Urea Nitrogen 8 MG/DL Creatinine 0.75 MG/DL Estimat Glomerular Filtration 84 ML/MIN Rate Random Glucose 152 MG/DL Calcium Level 8.6 MG/DL Magnesium Level 1.7 MG/DL Total Creatine Kinase 99 U/L Troponin I LESS THAN 0.02 NG/ML MDM Medical Decision Making Medical Screen Exam Complete: Yes Emergency Medical Condition: Yes Interpretation(s) EKG: NSR 95bpm. LAD. LVH. No ST segment elevation or depression. Differential Diagnosis Atypical chest pain vs. anxiety vs. ACS vs. aortic dissection (very unlikely but pain radiates down left leg). Narrative Course 46yo F with recent cardiac cath here with very atypical chest pain. Labs reviewed, no leukocytosis. Troponin negative. CTA negative for aneurysm or dissection. CXR negative. Discussed with Dr. Bush and pt can follow up as outpatient. Pt reevaluated at bedside and already feels better. Denies any chest pain. States it did not feel like the pain she had with her ND. Return precautions given. Diagnosis Primary Impression: Atypical chest pain Patient Instructions: General Instructions Departure Forms: Tests/Procedures Additional Instructions: Please follow up with your public health staff nurse at your appointment. Med/Other Pt SpecificInfo: No Change to Meds Disposition: 01 DISCHARGE HOME Condition: Stable Jing Stone DO Oct 20, 2016 13:09
[2016-10-20] MEDS: NITROGLYCERIN 0.4 MG SL 25 TABS/BTL SL SCH ×3 (13:23→13:41)
[2016-10-20 13:27] LABS: AUTOMATED NEUTROPHIL # 5.2 TH/MM3 (1.8-7.7); BASOPHIL # 0.1 TH/MM3 (0-0.2); BASOPHIL % 1.1 % (0.0-2.0); EOSINOPHIL # 0.1 TH/MM3 (0-0.4); EOSINOPHIL % 1.1 % (0.0-4.0); HEMO FLAGS AUTO DIFF; LYMPH % 46.9 % (9.0-44.0); LYMPHOCYTE # 5.2 TH/MM3 (1.0-4.8); MEAN CELL VOLUME 84.5 FL (80.0-100.0); MEAN CORPUSCULAR HEMOGLOBIN 26.6 PG (27.0-34.0); MEAN CORPUSCULAR HGB CONC 31.5 % (32.0-36.0); MONO % 3.8 % (0.0-8.0); NEUT % 47.1 % (16.0-70.0); PLATELET COUNT 250 TH/MM3 (150-450); RED BLOOD COUNT 4.49 MIL/MM3 (4.00-5.30); RED CELL DISTRIBUTION WIDTH 14.7 % (11.6-17.2)
[2016-10-20 13:37] LABS: APTT (PATIENT) 26.1 SEC (24.3-30.1); INTERNATIONAL NORMALIZED RATIO 0.9 RATIO
[2016-10-20 13:39] VITALS: BP 157/70; PULSE 99; RESP 22; O2SAT 97
[2016-10-20 13:41] LABS: ANION GAP 8 MEQ/L (5-15); BICARBONATE 26.8 MEQ/L (21.0-32.0); BLOOD UREA NITROGEN 8 MG/DL (7-18); CHLORIDE 103 MEQ/L (98-107); GLOMERULAR FILTRATION RATE 84 ML/MIN (>89); MAGNESIUM 1.7 MG/DL (1.5-2.5); POTASSIUM 3.5 MEQ/L (3.5-5.1); SODIUM (NA) 138 MEQ/L (136-145)
[2016-10-20] MEDS ORDERED: ACETAMINOPHEN 325 MG TAB PO ONE (13:45)
[2016-10-20 13:50] VITALS: BP 150/61
[2016-10-20 13:54] LABS: BANDS 1 % (0-6); EOSINOPHILS 1 % (0-4); NEUTROPHIL # MANUAL DIFF 6.2 TH/MM3 (1.8-7.7); PLATELET ESTIMATE SMEAR NORMAL (NORMAL); PLATELET MORPHOLOGY NORMAL (NORMAL); POLYS (SEG NEUTROPHILS) 55 % (16-70); SCAN/DIFF FINAL DIFF MANUAL; WBC DIFF SAMPLE 100
[2016-10-20 13:58] LABS: CREATINE KINASE 99 U/L (26-192)
--- NOTE | 2016-10-20 13:58 | RADRPT ---
EXAM DATE/TIME: 10/20/2016 13:12 [facility] COMPARISON: CHEST SINGLE AP, September 10, 2016, 12:43. INDICATIONS : Chest pain MEDICAL HISTORY : Hypertension. Diabetes mellitus type II. Congestive heart failure. asthma SURGICAL HISTORY : None. ENCOUNTER: Initial ACUITY: 2 days PAIN SCORE: 8/10 LOCATION: Bilateral chest FINDINGS: A single view of the chest demonstrates the lungs to be symmetrically aerated without evidence of mas s, infiltrate or effusion. The cardiomediastinal contours are unremarkable. Osseous structures are intact. CONCLUSION: No acute cardiopulmonary process. Clifton Butler MD on October 20, 2016 at 13:57 Board Certified Radiologist. This report was verified electronically.
[2016-10-20] MEDS ORDERED: IOHEXOL 350 MG/ML 10 ML VIAL (for RAD DIAG) IV ONE (14:54)
--- NOTE | 2016-10-20 14:59 | RADRPT ---
EXAM DATE/TIME: 10/20/2016 14:10 [facility] COMPARISON: CHEST SINGLE AP, October 20, 2016, 13:12. INDICATIONS : Left sided chest pain down left leg. IV CONTRAST: 100 cc Omnipaque 350 (iohexol) IV RADIATION DOSE: 17.04 CTDIvol (mGy) MEDICAL HISTORY : Cardiovascular disease. Gastroesophageal reflux disease. Hypertension.diabetes, CHF, SURGICAL HISTORY : Cholecystectomy. ENCOUNTER: Initial ACUITY: 1 day PAIN SCALE: 7/10 LOCATION: Left leg and chest. TECHNIQUE: Volumetric scanning was performed using a multi-row detector CT scanner. The data was post processed with a variety of visualization algorithms including full volume maximum intensity projection, multi -planar sliding thin slab reformation, curved planar reformation, and surface rendering techniques. Using automated exposure control and adjustment of the mA and/or kV according to patient size, radiat ion dose was kept as low as reasonably achievable to obtain optimal diagnostic quality images. DICOM format image data is available electronically for review and comparison. FINDINGS: LUNGS: There is no consolidation or pneumothorax. No concerning pulmonary nodule is visualized. No pleural fluid is present. MEDIASTINUM: No abnormally enlarged lymph nodes by CT criteria. No axillary or hilar abnormalities are identified. ABDOMEN: The liver and spleen are free of focal defects. Diffusely diminished hepatic attenuation characterist ic of fatty infiltration. Patient is status post cholecystectomy. The adrenal glands are normal. The kidneys demonstrate no evidence of solid renal mass or hydronephrosis. No free fluid or abdominal mas ses are identified. No para-aortic adenopathy is seen. PELVIS: No evidence of free fluid or pelvic mass. No abnormally enlarged inguinal or retroperitoneal lymph no anthony are present. The bladder is unremarkable. THORACIC AORTA: The thoracic aortic root is normal with normal branching of the great vessels. There is no evidence of aneurysm or dissection. ABDOMINAL AORTA: The aorta is normal in caliber without aneurysm or dissection. The renal arteries are patent bilater ally. The proximal celiac and superior mesenteric arteries are patent and normal in diameter. PELVIC VESSELS: The internal iliac and external iliac vessels are patent without aneurysm or stenosis. CONCLUSION: 1. Diffuse hepatic fatty infiltration. Patient is status post cholecystectomy. 2. Otherwise negative. Specifically, thoracoabdominal aorta is normal in caliber throughout its lengt h without aneurysmal disease or dissection. Clifton Butler MD on October 20, 2016 at 14:55 Board Certified Radiologist. This report was verified electronically.
[2016-10-20] MEDS ORDERED: IBUPROFEN 600 MG TAB PO ONE (17:00)
--- NOTE | 2016-10-21 14:17 | EKG ---
Date Performed: 10/20/2016 Time Performed: 12:56:49 PTAGE: 46 years EKG: Sinus rhythm VOLTAGE CRITERIA FOR LVH NONSPECIFIC T-WAVE ABNORMALITY ABNORMAL ECG Compared to PREVIOUS TRACING , voltage has increased, clinical correlation is recommended. PREVIOUS T RACIN09/10/2016 20.13 DOCTOR: Filiberto Centeno Interpretating Date/Time 10/21/2016 14:16:33
== END 2016-10-20 17:56 | disposition home or self-care (01) ==
LOC: NEPE 12:45
DX: R07.89 Other chest pain (principal); M06.9 Rheumatoid arthritis, unspecified; F41.9 Anxiety disorder, unspecified; J45.909 Unspecified asthma, uncomplicated; I50.9 Heart failure, unspecified; J44.9 Chronic obstructive pulmonary disease, unspecified; K21.9 Gastro-esophageal reflux disease without esophagitis; I10 Essential (primary) hypertension; E11.40 Type 2 diabetes mellitus with diabetic neuropathy, unspecified
CPT/HCPCS: 71010; 71275; 74174; 80048; 82550; 83735; 84484; 85007; 85027; 85610; 85730; 93005; 99285; Q9967

== ENCOUNTER 2016-12-16 20:52 | Emergency (ER) | payer OTHER ==
[~2016-12-16] VITALS: Ht 165.1 cm; Wt 118.6 kg
[2016-12-16 21:08] VITALS: BP 187/94; PULSE 98; RESP 20; TEMP 97.7; O2SAT 98
[2016-12-16] MEDS ORDERED: ULTR50TA5 PO (21:42)
--- NOTE | 2016-12-16 21:44 | PD ---
HPI Chief Complaint: Musculoskeletal Complaint Time Seen by Provider: 21:19 Travel History International Travel<30 days: No Contact w/Intl Traveler<30days: No Traveled to known affect area: No History of Present Illness HPI while carrying a roll of 100 pound carpet, and going down steps, she misstepped and felt her knee buckle outwards...now pain to left knee, entire knee hurts, 8/ 10, worse with weight bearing, slight improvement with ice PFSH Past Medical History Hx Anticoagulant Therapy: Yes Arthritis: Yes Asthma: Yes Autoimmune Disease: Yes (Rheumatoid Arthritis) Blood Disorders: No Anxiety: Yes Depression: Yes Heart Rhythm Problems: No Cancer: No Cardiac Catheterization: Yes Cardiovascular Problems: Yes (cardiac ablations) High Cholesterol: Yes Chemotherapy: No Chest Pain: Yes Congestive Heart Failure: Yes (from chronic htn per pt) COPD: Yes (chronic bronchitis) Cerebrovascular Accident: Yes Diabetes: Yes Patient Takes Glucophage: No Diminished Hearing: No Endocrine: Yes Gastrointestinal Disorders: Yes GERD: Yes (GERD) Genitourinary: No Headaches: Yes Hiatal Hernia: No Hypertension: Yes Immune Disorder: No Implanted Vascular Access Dvce: Yes Kidney Stones: No Musculoskeletal: Yes Neurologic: Yes (NEUROPATHY) Psychiatric: Yes Reproductive: Yes (UTERINE ABLATION) Respiratory: Yes (ASTHMA) Immunizations Current: Yes Migraines: Yes Myocardial Infarction: Yes Radiation Therapy: No Renal Failure: No Seizures: No Sickle Cell Disease: No Sleep Apnea: Yes (CPAP) Thyroid Disease: No Ulcer: No Tetanus Vaccination: > 5 Years Influenza Vaccination: No ?: Not Menopausal: Yes : 2 Para: 2 Tubal Ligation: Yes Past Surgical History Abdominal Surgery: Yes (choley) AICD: No Cardiac Surgery: Yes (Cardiac Cath ) Section: Yes (X 2) Cholecystectomy: Yes Coronary Artery Bypass Graft: No Ear Surgery: No Eye Surgery: No Genitourinary Surgery: Yes (Gallbladder removed 2007) Gynecologic Surgery: Yes (UTERINE ABLATION, 2003/ tubal ligation ) Hysterectomy: Yes Insulin Pump: No Joint Replacement: No Oral Surgery: Yes (tonsils and adenoids) Pacemaker: No Thoracic Surgery: No Tonsillectomy: Yes Other Surgery: Yes (c/sect.x2,cholest.,t/a, uterine ablation) Family History Family Myocardial Infarction: Yes Social History Alcohol Use: No Tobacco Use: No Substance Use: No Allergies-Medications (Allergen,Severity, Reaction): Coded Allergies: Sulfa (Sulfonamide Antibiotics) (Unverified Allergy, Severe, SHORTNESS OF BREATH, 12/16/16) amoxicillin (Unverified Allergy, Severe, RASH, SOB, 12/16/16) bee venom protein (honey bee) (Unverified Allergy, Severe, Anaphylaxis, 12/16/16) clavulanic acid (Unverified Allergy, Severe, RASH, SOB, 12/16/16) penicillin G (Unverified Allergy, Severe, HIVES, SOB, 12/16/16) diphenhydramine (Unverified Allergy, Intermediate, hives, 12/16/16) amlodipine (Unverified Allergy, Unknown, RASH SOB, 12/16/16) latex (Unverified Allergy, Unknown, HIVES, 12/16/16) Reported Meds & Prescriptions Reported Meds & Active Scripts Active Ultram (Tramadol HCl) 50 Mg Tab 50 Mg PO Q6H PRN Ibuprofen 600 Mg Tab 600 Mg PO TID Lipitor (Atorvastatin Calcium) 10 Mg Tab 10 Mg PO HS 30 Days Coreg (Carvedilol) 3.125 Mg Tab 3.125 Mg PO BID 30 Days Ultram (Tramadol HCl) 50 Mg Tab 50 Mg PO Q4H PRN Reported Venlafaxine ER 24 HR (Venlafaxine HCl) 75 Mg Cap 75 Mg PO DAILY Venlafaxine ER 24 HR (Venlafaxine HCl) 150 Mg Cap 150 Mg PO DAILY Gabapentin 400 Mg Cap 400 Cap PO HS Glipizide 10 Mg Tab 10 Mg PO DAILY Take 30 minutes before a meal Aspirin 81 Low Dose (Aspirin) 81 Mg Chew 81 Mg CHEW DAILY Amlodipine (Amlodipine Besylate) 10 Mg Tab 10 Mg PO DAILY Levemir Inj (Insulin Detemir) 1,000 unit/ 10 ML Vial 40 Units SQ BID Do not mix with any other Insulin. Spironolactone 25 Mg Tab 25 Mg PO DAILY Proair Hfa 8.5 GM Inh (Albuterol Sulfate) 90 Mcg/Act Aer 2 Puff INH Q4-6H PRN 108 mcg/actuation Ibuprofen 800 Mg Tab 800 Mg PO Q8H PRN Ranitidine (Ranitidine HCl) 150 Mg Tab 150 Mg PO HS Lisinopril 40 Mg Tab 40 Mg PO DAILY Review of Systems Except as stated in HPI: all other systems reviewed are Neg Musculoskeletal: Positive: Limited ROM, Pain Physical Exam Narrative GENERAL: SKIN: Warm and dry. HEAD: Atraumatic. Normocephalic. EYES: Pupils equal and round. No scleral icterus. No injection or drainage. ENT: No nasal bleeding or discharge. Mucous membranes pink and moist. NECK: Trachea midline. No JVD. CARDIOVASCULAR: Regular rate and rhythm. RESPIRATORY: No accessory muscle use. Clear to auscultation. Breath sounds equal bilaterally. GASTROINTESTINAL: Abdomen soft, non-tender, nondistended. Hepatic and splenic margins not palpable. MUSCULOSKELETAL: Extremities without clubbing, cyanosis, or edema. No obvious deformities. neg anterior/posterior drawer, but tender to kyung's test with valgus and varus stress, no pain to hip/ankle/or lateral prox fib NEUROLOGICAL: Awake and alert. No obvious cranial nerve deficits. Motor grossly within normal limits. Five out of 5 muscle strength in the arms and legs. Normal speech. PSYCHIATRIC: Appropriate mood and affect; insight and judgment normal. Data Data Last Documented VS Vital Signs Date Time Temp Pulse Resp B/P (MAP) Pulse Ox O2 Delivery O2 Flow Rate FiO2 12/16/16 21:08 97.7 98 20 187/94 (125) 98 Orders Orders Knee, Complete (4vws) (12/16/16 ) Ketorolac Inj (Toradol Inj) (12/16/16 21:45) ^ Knee Immobilizer (12/16/16 21:36) Crutches (12/16/16 22:17) Immobilizer Knee 20 Inch (12/17/16 ) MDM Medical Decision Making Medical Screen Exam Complete: Yes Emergency Medical Condition: Yes Medical Record Reviewed: Yes Differential Diagnosis fx v dislocation v subluxation Narrative Course xrays neg for fx, dislocations noted. patient will have knee immobilizer and crutches, referred to pcp for outpt mri and further care Diagnosis Primary Impression: Left knee sprain Qualified Codes: S83.402A - Sprain of unspecified collateral ligament of left knee, initial encounter Referrals: Jada Camarillo please call office to setup follow up for outpatient mri left knee r/o ligament injury. Scripts Tramadol (Ultram) 50 Mg Tab 50 MG PO Q6H Y for PAIN, #20 TAB 0 Refills Prov: Saurav Metz MD 12/16/16 Disposition: 01 DISCHARGE HOME Condition: Stable [place],Saurav Lebron MD Dec 16, 2016 21:44
[2016-12-16] MEDS ORDERED: KETOROLAC TROMETHAMINE 60 MG/2 ML (IM) VIAL IM ONE (21:45)
--- NOTE | 2016-12-16 22:07 | RADRPT ---
EXAM DATE/TIME: 12/16/2016 21:40 [facility] COMPARISON: KNEE LEFT COMPLETE (4VWS), October 17, 2014, 9:28. INDICATIONS : Left knee pain due to twisting injury. MEDICAL HISTORY : None. SURGICAL HISTORY : section. Tubal ligation. Tonsillectomy. ENCOUNTER: Initial ACUITY: 1 day PAIN SCORE: 8/10 LOCATION: Left knee. FINDINGS: Four view examination of the left knee demonstrates no evidence of fracture or dislocation. Bony min eralization is normal. Mild 3 compartment osteoarthritic changes are again noted with mild joint spac e loss, sclerosis and minimal spurring. The suprapatellar soft tissues have a normal configuration. CONCLUSION: 1. No acute fracture or malalignment. 2. Mild tricompartment osteoarthritic change. Espinoza Larry MD on December 16, 2016 at 22:04 Board Certified Radiologist. This report was verified electronically.
== END 2016-12-16 22:30 | disposition home or self-care (01) ==
LOC: PHED 20:52
DX: S83.402A Sprain of unspecified collateral ligament of left knee, initial encounter (principal); E11.9 Type 2 diabetes mellitus without complications; I10 Essential (primary) hypertension; E78.00 Pure hypercholesterolemia, unspecified; G47.30 Sleep apnea, unspecified; I25.2 Old myocardial infarction; X58.XXXA Exposure to other specified factors, initial encounter; X50.0XXA Overexertion from strenuous movement or load, initial encounter; Z79.01 Long term (current) use of anticoagulants; Z79.4 Long term (current) use of insulin; Z87.39 Personal history of other diseases of the musculoskeletal system and connective tissue; Z87.09 Personal history of other diseases of the respiratory system; Z86.2 Personal history of diseases of the blood and blood-forming organs and certain disorders involving the immune mechanism; Z86.59 Personal history of other mental and behavioral disorders; Z86.79 Personal history of other diseases of the circulatory system; Z87.19 Personal history of other diseases of the digestive system; Z86.69 Personal history of other diseases of the nervous system and sense organs
CPT/HCPCS: 73564; 96372; 99284; E0113; J1885; L1830

== ENCOUNTER 2016-12-30 09:55 | Emergency (ER) | payer OTHER ==
[~2016-12-30] VITALS: Ht 165.1 cm; Wt 113.7 kg
[2016-12-30 09:59] VITALS: BP 138/81; PULSE 98; RESP 16; TEMP 98.4; O2SAT 98
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
[2016-12-30] MEDS ORDERED: KETOROLAC TROMETHAMINE 30 MG/ML (IVP) VIAL IV PUSH ONE (10:30)
[2016-12-30] MEDS ORDERED: ONDANSETRON HCL 4 MG/2 ML VIAL IV PUSH ONE (10:30)
[2016-12-30] MEDS ORDERED: SODIUM CHLOR 0.9% 1000 ML INJ 1,000 ML IV ONE (10:30)
[2016-12-30 10:41] LABS: AUTOMATED NEUTROPHIL # 3.6 TH/MM3 (1.8-7.7); BASOPHIL # 0.1 TH/MM3 (0-0.2); BASOPHIL % 0.9 % (0.0-2.0); EOSINOPHIL % 0.5 % (0.0-4.0); HEMATOCRIT 39.6 % (35.0-46.0); HEMO FLAGS DIFF FINAL; LYMPH % 52.7 % (9.0-44.0); LYMPHOCYTE # 4.8 TH/MM3 (1.0-4.8); MEAN CELL VOLUME 83.3 FL (80.0-100.0); MEAN CORPUSCULAR HEMOGLOBIN 27.9 PG (27.0-34.0); MEAN CORPUSCULAR HGB CONC 33.5 % (32.0-36.0); NEUT % 40.9 % (16.0-70.0); PLATELET COUNT 284 TH/MM3 (150-450); RED BLOOD COUNT 4.76 MIL/MM3 (4.00-5.30); RED CELL DISTRIBUTION WIDTH 13.4 % (11.6-17.2); WHITE BLOOD COUNT 8.9 TH/MM3 (4.0-11.0)
[2016-12-30 10:48] LABS: BLOOD, URINE NEG (NEG); GLUCOSE,URINE NEG (NEG); KETONE, URINE TRACE mg/dL (NEG); NITRITE,URINE NEG (NEG)
[2016-12-30 10:52] LABS: CHLORIDE 97 MEQ/L (98-107); POTASSIUM 3.1 MEQ/L (3.5-5.1); SODIUM (NA) 137 MEQ/L (136-145)
[2016-12-30 10:57] LABS: ANION GAP 7 MEQ/L (5-15); BLOOD UREA NITROGEN 12 MG/DL (7-18)
[2016-12-30 10:59] LABS: ALT (GPT) 23 U/L (10-53); AST (GOT) 25 U/L (15-37)
[2016-12-30 11:00] LABS: GLOMERULAR FILTRATION RATE 71 ML/MIN (>89)
[2016-12-30 11:01] LABS: TOTAL BILIRUBIN ADULT 0.2 MG/DL (0.2-1.0)
[2016-12-30 11:02] LABS: ALKALINE PHOSPHATASE 115 U/L (45-117)
[2016-12-30 11:05] LABS: CREATINE KINASE 99 U/L (26-192)
[2016-12-30 11:06] LABS: URINE COLOR YELLOW (YELLW/STRAW)
[2016-12-30 11:08] LABS: WBC, URINE 0-2 /hpf (0-5)
[2016-12-30 11:09] LABS: BACTERIA, URINE MOD /hpf; CALCIUM OXALATE CRYSTALS,URINE MOD /hpf; COMMENT (UR) CULTURE INDICATED; CULTURE IF INDICATED CULTURE INDICATED
[2016-12-30] MEDS ORDERED: POTASSIUM CHLORIDE 20 MEQ CONTROLLED RELEASE TAB PO ONE (11:15)
[2016-12-30] MEDS ORDERED: DIAZEPAM 5 MG TAB PO ONE (11:45)
[2016-12-30 11:48] VITALS: BP 142/91; PULSE 98; RESP 18
--- NOTE | 2016-12-30 12:56 | RADRPT ---
EXAM DATE/TIME: 12/30/2016 12:36 [facility] COMPARISON: US LEG LEFT VENOUS DOPPLER, September 30, 2016, 23:24. INDICATIONS : Left leg pain. MEDICAL HISTORY : Myocardial infarction. Congestive heart failure. Hypercholesterolemia. CVA. Neuropathy. Migraines. Cardiac ablations. HTN. COPD. Chest pain. Sleep apnea. Dyspnea. Asthma. Arthritis. Osteoporosis. Cecilia betes. Chronic bronchitis. GERD. Uterine ablation. Depression. Anxiety. Anticoagulant therapy. SURGICAL HISTORY : Tonsillectomy. Cholecystectomy. Tubal ligation. Adenoidectomy. Cardiac cath. Hysterectomy. section. ENCOUNTER: Subsequent ACUITY: 2 day PAIN SCORE: 7/10 LOCATION: Left leg. TECHNIQUE: Venous ultrasound of the leg was performed from the inguinal ligament to the proximal calf. Real-yudy e, color Doppler and spectral tracing, compression and augmentation techniques were used. FINDINGS: There is normal compressibility of the deep venous system from the inguinal region to the proximal ca lf. No echogenic clot is seen in the lumen of the common femoral, femoral, popliteal, and posterior tibial veins. There is a normal response of the venous system to proximal and distal augmentation an d respiration. CONCLUSION: No DVT is identified in the left lower extremity. Gavin Rodriguez MD on December 30, 2016 at 12:54 Board Certified Radiologist. This report was verified electronically.
[2016-12-30] MEDS ORDERED: MACR100C2 PO (13:05)
[2016-12-30] MEDS ORDERED: TYLE325T PO (13:05)
== END 2016-12-30 13:25 | disposition home or self-care (01) ==
LOC: PHED 09:55
DX: N39.0 Urinary tract infection, site not specified (principal); M06.9 Rheumatoid arthritis, unspecified; E78.00 Pure hypercholesterolemia, unspecified; E11.9 Type 2 diabetes mellitus without complications; G62.9 Polyneuropathy, unspecified; I11.0 Hypertensive heart disease with heart failure; I50.9 Heart failure, unspecified; I25.2 Old myocardial infarction; J44.9 Chronic obstructive pulmonary disease, unspecified; K21.9 Gastro-esophageal reflux disease without esophagitis; M81.0 Age-related osteoporosis without current pathological fracture; Z86.73 Personal history of transient ischemic attack (TIA), and cerebral infarction without residual deficits; Z88.0 Allergy status to penicillin; Z90.49 Acquired absence of other specified parts of digestive tract; Z79.01 Long term (current) use of anticoagulants; M79.605 Pain in left leg
CPT/HCPCS: 80053; 81001; 82550; 83690; 84703; 85025; 87086; 93971; 96361; 96374; 96375; 99285; J1885; J2405; J7030

== ENCOUNTER 2017-02-16 13:51 | Observation (INO) | payer OTHER ==
[~2017-02-16 13:51] MED LIST changes: +ASPI1CHW4 CHEW; -ASPI81CH3 CHEW; -IBUP-232 PO; +IBUP1TAB7 PO; -IBUP800T23 PO; +MACR100C2 PO; +TYLE325T PO; -ULTR50TA5 PO
[2017-02-16 14:04] VITALS: BP 137/82; PULSE 95; RESP 24; TEMP 98.1; O2SAT 99
[2017-02-16] MEDS ORDERED: SODIUM CHLORIDE 0.9% FLUSH 10 ML FLUSH IVF PRN (14:15)
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
--- NOTE | 2017-02-16 14:35 | RADRPT ---
EXAM DATE/TIME: 02/16/2017 14:20 [facility] COMPARISON: CHEST SINGLE AP, October 20, 2016, 13:12. INDICATIONS : Chest pain. MEDICAL HISTORY : Congestive heart failure. SURGICAL HISTORY : None. ENCOUNTER: Initial ACUITY: 1 day PAIN SCORE: 10/10 LOCATION: Bilateral chest FINDINGS: A single view of the chest demonstrates the lungs to be symmetrically aerated without evidence of mas s, infiltrate or effusion. The cardiomediastinal contours are unremarkable. Osseous structures are intact. CONCLUSION: No evidence of acute cardiopulmonary disease. Gavin López MD on February 16, 2017 at 14:32 Board Certified Radiologist. This report was verified electronically.
[2017-02-16 14:48] VITALS: RESP 18; O2SAT 98
[2017-02-16 15:32] LABS: AUTOMATED NEUTROPHIL # 6.2 TH/MM3 (1.8-7.7); BASOPHIL % 0.4 % (0.0-2.0); EOSINOPHIL # 0.1 TH/MM3 (0-0.4); EOSINOPHIL % 0.6 % (0.0-4.0); HEMATOCRIT 38.2 % (35.0-46.0); LYMPH % 44.2 % (9.0-44.0); LYMPHOCYTE # 5.4 TH/MM3 (1.0-4.8); MEAN CELL VOLUME 86.1 FL (80.0-100.0); MEAN CORPUSCULAR HGB CONC 32.5 % (32.0-36.0); MONO % 3.8 % (0.0-8.0); PLATELET COUNT 265 TH/MM3 (150-450); RED BLOOD COUNT 4.44 MIL/MM3 (4.00-5.30); RED CELL DISTRIBUTION WIDTH 14.5 % (11.6-17.2); WHITE BLOOD COUNT 12.1 TH/MM3 (4.0-11.0)
[2017-02-16 15:38] LABS: HEMO FLAGS AUTO DIFF
[2017-02-16 15:47] LABS: APTT (PATIENT) 26.2 SEC (24.3-30.1); INTERNATIONAL NORMALIZED RATIO 0.9 RATIO; PROTHROMBIN TIME - PATIENT 10.2 SEC (9.8-11.6)
[2017-02-16 16:02] LABS: ALT (GPT) 27 U/L (10-53); ANION GAP 9 MEQ/L (5-15); AST (GOT) 20 U/L (15-37); BLOOD UREA NITROGEN 12 MG/DL (7-18); CHLORIDE 99 MEQ/L (98-107); GLOMERULAR FILTRATION RATE 82 ML/MIN (>89); MAGNESIUM 1.8 MG/DL (1.5-2.5); POTASSIUM 3.7 MEQ/L (3.5-5.1); SODIUM (NA) 138 MEQ/L (136-145)
[2017-02-16 16:05] LABS: ALKALINE PHOSPHATASE 109 U/L (45-117); TOTAL BILIRUBIN ADULT 0.3 MG/DL (0.2-1.0)
[2017-02-16 16:06] LABS: CREATINE KINASE 65 U/L (26-192)
[2017-02-16 16:26] LABS: BANDS 1 % (0-6); NEUTROPHIL # MANUAL DIFF 9.4 TH/MM3 (1.8-7.7); PLATELET ESTIMATE SMEAR NORMAL (NORMAL); PLATELET MORPHOLOGY ENLARGED (NORMAL); POLYS (SEG NEUTROPHILS) 77 % (16-70); SCAN/DIFF FINAL DIFF MANUAL; WBC DIFF SAMPLE 100
[2017-02-16] MEDS ORDERED: SODIUM CHLORIDE 0.9% FLUSH 10 ML FLUSH IV FLUSH PRN (16:45)
--- NOTE | 2017-02-16 17:28 | HHI.HP ---
[facility] BIENVENIDO Villasenor Admission Diagnosis syncope/chest pain Diagnoses: Chief Complaint: chest pain, syncope Travel History International Travel<30 Days: No Contact w/Intl Traveler <30 Da: No Traveled to Known Affected Are: No History of Present Illness Written by Grace Mckeon, acting as scribe for Dr. Ceja on 02/16/17 at 17:14. 46-year-old female with history of HTN, HLD, CO x3 per patient, diabetes, anxiety, depression, presents with chest pain and syncope. The patient explains she has been under a lot of stress recently going through a divorce with her . She went to the store today, started having chest pains, and decided to go home. She states after she got home, her left leg all of a sudden became very weak and she fell down on the ground. She believes she blacked out. Upon awakening, she developed constant sharp 10/10 chest pain located across anterior chest, some numbness into bilateral arms, and pain down the left leg. The pains were associated with nausea, vomiting x1, diaphoresis, and shortness of breath. She took a nitroglycerin tablet but this did not relieve the pain. She states she called 911 but she passed out again and EVAC had to wake her up. She has been persistently lightheaded. In the ER, the patient continues to have constant 8/10 chest pains. She sees Jada FARIA for both primary care and cardiology, last seen 1 month ago. She also reports diarrhea five times a day over the past three days and poor appetite which she relates to the stress. Denies any abdominal pain. She has no other medical complaints at this time. Review of Systems Except as stated in HPI: all other systems reviewed are Neg Past Family Social History Past Medical History CO x3 per patient, no stents diabetes anxiety depression hypertension hyperlipidemia Past Surgical History Cholecystectomy Cardiac catheterization section x2 Uterine ablation Tubal ligation Tonsilloadenoidectomy Reported Medications Tylenol (Acetaminophen) 325 Mg Tab 650 Mg PO Q6H PRN Macrobid (Nitrofurantoin Monoh/Nitrofur Macro) 100 Mg Cap 100 Mg PO BID 5 Days Lipitor (Atorvastatin Calcium) 10 Mg Tab 10 Mg PO HS 30 Days Coreg (Carvedilol) 3.125 Mg Tab 3.125 Mg PO BID 30 Days Venlafaxine ER 24 HR (Venlafaxine HCl) 75 Mg Cap 75 Mg PO DAILY Venlafaxine ER 24 HR (Venlafaxine HCl) 150 Mg Cap 150 Mg PO DAILY Gabapentin 400 Mg Cap 400 Cap PO HS Glipizide 10 Mg Tab 10 Mg PO DAILY Take 30 minutes before a meal Aspirin 81 Low Dose (Aspirin) 81 Mg Chew 81 Mg CHEW DAILY Amlodipine (Amlodipine Besylate) 10 Mg Tab 10 Mg PO DAILY Levemir Inj (Insulin Detemir) 1,000 unit/ 10 ML Vial 50 Units SQ BID Do not mix with any other Insulin. Spironolactone 25 Mg Tab 25 Mg PO DAILY Proair Hfa 8.5 GM Inh (Albuterol Sulfate) 90 Mcg/Act Aer 2 Puff INH Q4-6H PRN 108 mcg/actuation Ibuprofen 800 Mg Tab 800 Mg PO Q8H PRN Ranitidine (Ranitidine HCl) 150 Mg Tab 150 Mg PO HS Lisinopril 40 Mg Tab 40 Mg PO DAILY Allergies: Coded Allergies: Sulfa (Sulfonamide Antibiotics) (Verified Allergy, Severe, SHORTNESS OF BREATH, 02/16/17) amoxicillin (Verified Allergy, Severe, RASH, SOB, 02/16/17) bee venom protein (honey bee) (Verified Allergy, Severe, Anaphylaxis, 02/16) clavulanic acid (Verified Allergy, Severe, RASH, SOB, 02/16/17) penicillin G (Verified Allergy, Severe, HIVES, SOB, 02/16/17) diphenhydramine (Verified Allergy, Intermediate, hives, 02/16/17) amlodipine (Verified Allergy, Unknown, RASH SOB, 02/16/17) latex (Verified Allergy, Unknown, HIVES, 02/16/17) Active Ordered Medications Current Medications Medications (Trade) Dose Ordered Sig/Todd Route Start Time Stop Time Status Last Admin (NS Flush) 2 ml UNSCH PRN IVF 02/16/17 14:15 (NS Flush) 2 ml UNSCH PRN IV FLUSH 02/16/17 16:45 (NS Flush) 2 ml BID IV FLUSH 02/16/17 21:00 Family History Father with CO and 4 brain tumors, age 48 Mother with CO, 2 cardiac stents placed age 54, still alive 2 grandparents in their 30s with heart attacks Social History Denies any tobacco or illicit drug use. Very occasional alcohol use Physical Exam Vital Signs Vital Signs Date Time Temp Pulse Resp B/P (MAP) Pulse Ox O2 Delivery O2 Flow Rate FiO2 02/16/17 14:48 18 98 Room Air 02/16/17 14:48 98 Room Air 02/16/17 14:04 98.1 95 24 137/82 (100) 99 Physical Exam GENERAL: Well-nourished, well-developed middle aged female patient laying in bed SKIN: Warm and dry. No rash. HEAD: Normocephalic. Atraumatic. EYES: Pupils equal and round. EOMI. No scleral icterus. No injection or drainage. ENT: No nasal bleeding or discharge. Mucous membranes pink and moist. NECK: Supple. Trachea midline. CARDIOVASCULAR: Regular rate and rhythm. No murmur appreciated. RESPIRATORY: No accessory muscle use. Clear to auscultation. Breath sounds equal bilaterally. GASTROINTESTINAL: Abdomen soft, non-tender, nondistended. Normoactive bowel sounds x4. MUSCULOSKELETAL: No obvious deformities. Extremities without edema. Left knee diffusely TTP with pain upon flexion, limited ROM secondary to pain. NEUROLOGICAL: Awake and alert. No obvious cranial nerve deficits. Motor grossly within normal limits. Normal speech. PSYCHIATRIC: Anxious mood; insight and judgment normal. Laboratory Laboratory Tests Test 02/16/17 14:30 White Blood Count 12.1 Red Blood Count 4.44 Hemoglobin 12.4 Hematocrit 38.2 Mean Corpuscular Volume 86.1 Mean Corpuscular Hemoglobin 28.0 Mean Corpuscular Hemoglobin Concent 32.5 Red Cell Distribution Width 14.5 Platelet Count 265 Mean Platelet Volume 10.1 Neutrophils (%) (Auto) 51.0 Lymphocytes (%) (Auto) 44.2 Monocytes (%) (Auto) 3.8 Eosinophils (%) (Auto) 0.6 Basophils (%) (Auto) 0.4 Neutrophils # (Auto) 6.2 Lymphocytes # (Auto) 5.4 Monocytes # (Auto) 0.5 Eosinophils # (Auto) 0.1 Basophils # (Auto) 0.0 CBC Comment AUTO DIFF Differential Total Cells Counted 100 Neutrophils % (Manual) 77 Band Neutrophils % 1 Lymphocytes % 18 Monocytes % 4 Neutrophils # (Manual) 9.4 Differential Comment FINAL DIFF MANUAL Platelet Estimate NORMAL Platelet Morphology Comment ENLARGED Prothrombin Time 10.2 Prothromb Time International Ratio 0.9 Activated Partial Thromboplast Time 26.2 Blood Urea Nitrogen 12 Creatinine 0.76 Random Glucose 87 Total Protein 8.1 Albumin 3.6 Calcium Level 8.8 Magnesium Level 1.8 Alkaline Phosphatase 109 Aspartate Amino Transf (AST/SGOT) 20 Alanine Aminotransferase (ALT/SGPT) 27 Total Bilirubin 0.3 Sodium Level 138 Potassium Level 3.7 Chloride Level 99 Carbon Dioxide Level 30.0 Anion Gap 9 Estimat Glomerular Filtration Rate 82 Total Creatine Kinase 65 Troponin I LESS THAN 0.02 Result Diagram: 02/16/17 1430 02/16/17 143 Imaging Last Impressions Chest X-Ray 02/16/17 1412 Signed Impressions: Service Date/Time: Thursday, February 16, 2017 14:20 - CONCLUSION: No evidence of acute cardiopulmonary disease. MD Oralia Albert VTE Risk Assessment Caprini VTE Risk Assessment: No/Low Risk (score <= 1) Caprini Risk Assessment Model Point Value = 1 Point Value = 2 Point Value = 3 Point Value = 5 Age 41-60 Minor surgery BMI > 25 kg/m2 Swollen legs Varicose veins or History of unexplained or recurrent spontaneous Oral contraceptives or hormone replacement Sepsis (< 1 month) Serious lung disease, including pneumonia (< 1 month) Abnormal pulmonary function Acute myocardial infarction Congestive heart failure (< 1 month) History of inflammatory bowel disease Medical patient at bed rest Age 61-74 Arthroscopic surgery Major open surgery (> 45 min) Laparoscopic surgery (> 45 min) Malignancy Confined to bed (> 72 hours) Immobilizing plaster cast Central venous access Age >= 75 History of VTE Family history of VTE Factor V Leiden Prothrombin [id number] Lupus anticoagulant Anticardiolipin antibodies Elevated serum homocysteine Heparin-induced thrombocytopenia Other congenital or acquired thrombophilia Stroke (< 1 month) Elective arthroplasty Hip, pelvis, or leg fracture Acute spinal cord injury (< 1 month) Prophylaxis Regimen Total Risk Factor Score Risk Level Prophylaxis Regimen 0-1 Low Early ambulation 2 Moderate Order ONE of the following: *Sequential Compression Device (SCD) *Heparin 5000 units SQ BID 3-4 Higher Order ONE of the following medications: *Heparin 5000 units SQ TID *Enoxaparin/Lovenox 40 mg SQ daily (WT < 150 kg, CrCl > 30 mL/min) *Enoxaparin/Lovenox 30 mg SQ daily (WT < 150 kg, CrCl > 10-29 mL/min) *Enoxaparin/Lovenox 30 mg SQ BID (WT < 150 kg, CrCl > 30 mL/min) AND/OR *Sequential Compression Device (SCD) 5 or more Highest Order ONE of the following medications: *Heparin 5000 units SQ TID (Preferred with Epidurals) *Enoxaparin/Lovenox 40 mg SQ daily (WT < 150 kg, CrCl > 30 mL/min) *Enoxaparin/Lovenox 30 mg SQ daily (WT < 150 kg, CrCl > 10-29 mL/min) *Enoxaparin/Lovenox 30 mg SQ BID (WT < 150 kg, CrCl > 30 mL/min) AND *Sequential Compression Device (SCD) Assessment and Plan Problem List: (1) Syncope ICD Code: R55 - Syncope and collapse Status: Acute (2) Atypical chest pain ICD Code: R07.89 - Other chest pain Status: Acute Assessment and Plan 46-year-old female with history of HTN, HLD, CO x3 per patient, diabetes, anxiety, depression, presents with chest pain and syncope. Chest Pain: atypical. Multiple prior presentations for chest pain, suspect related to anxiety, patient under a lot of stress going through a divorce. Records reviewed, nuclear stress test 08/22/15 normal. Cardiac catheterization by Dr. Bush showed angiographically mild 2-vessel CAD in a right dominant system, normal LV systolic function EF 60%; recommended medical management. -Strongly suspect symptoms related to anxiety -Continue to rule out ACS with serial cardiac enzymes and EKG, first set negative -Monitor on telemetry -Continue patient's aspirin, coreg, lisinopril, statin -Nitro prn chest pain, IV morphine prn pain Syncope: unclear etiology, suspect secondary to anxiety, rule out neurocardiogenic etiologies. -check carotid U/S -check echocardiogram -check EEG -monitor on telemetry -neuro checks Diabetes: chronic, BG 87 -continue patient's home meds once updated -monitor Accu-Checks and cover with SSI Hypertension: chronic, BP fairly well controlled -continue patient's home meds once updated -monitor BP, adjust antihypertensives as needed Hyperlipidemia: chronic -continue patient's statin Anxiety: acute on chronic, likely contributing to patient's symptoms -continue patient's effexor -counseled on following up with a psychiatrist/therapist Left Knee Pain: suspect knee sprain with syncopal event -check left knee xray to rule out fracture -norco and IV morphine prn pain Diarrhea: patient reports 3 days of diarrhea -monitor BMs -start on lactinex DVT Prophylaxis: Lovenox sq This note was transcribed by barrett Mckeon. I, Dr. Shanelle Ceja personally performed the history, physical exam, and medical decision making; and confirmed the accuracy of the information in the transcribed note. Authenticated by Dr. Shanelle Ceja on 02/16/17 at 17:14. Code Status Full Code Discussed Condition With Patient, ER MD, NETWORK DEVELOPMENT COORDINATOR Grace Mckeon PA-C Feb 16, 2017 17:28 Shanelle Ceja MD Feb 16, 2017 18:19
[2017-02-16] MEDS ORDERED: ACETAMINOPHEN 325 MG TAB PO PRN (18:00)
[2017-02-16] MEDS ORDERED: ACETAMINOPHEN/HYDROcodone 325 MG/10 MG TAB PO PRN (18:00)
[2017-02-16] MEDS ORDERED: DEXTROSE 50% IN WATER 50 ML VIAL(D50) IV PUSH PRN (18:00)
[2017-02-16] MEDS ORDERED: GLUCAGON 1 MG/ML VIAL OTHER PRN (18:00)
[2017-02-16] MEDS ORDERED: ACETAMINOPHEN/HYDROcodone 325 MG/7.5 MG TAB PO PRN (18:00)
--- NOTE | 2017-02-16 18:05 | RADRPT ---
EXAM DATE/TIME: 02/16/2017 17:55 [facility] COMPARISON: KNEE LEFT COMPLETE (4VWS), December 16, 2016, 21:40. INDICATIONS : Pain post fall. MEDICAL HISTORY : None. SURGICAL HISTORY : None. ENCOUNTER: Initial ACUITY: 2 days PAIN SCORE: 8/10 LOCATION: Left Knee FINDINGS: Bone density is normal. Moderate osteoarthritis is noted with spurring of the tibial spines, joint sp michelle narrowing and marginal osteophytosis. No fractures are seen. Tiny knee joint effusion. CONCLUSION: Osteoarthritis. No fracture. Giovanni Crespo MD on February 16, 2017 at 18:03 Board Certified Radiologist. This report was verified electronically.
[2017-02-16] MEDS ORDERED: ENOXAPARIN SODIUM 40 MG/0.4 ML SYRINGE SQ SCH (18:15)
[2017-02-16] MEDS ORDERED: NITROGLYCERIN 2% OINT 1 GM PACKET TOPICAL PRN (18:15)
[2017-02-16] MEDS ORDERED: MORPHINE SULFATE 2 MG/ML INJ IV PUSH PRN (18:15)
[2017-02-16 18:26] VITALS: BP 143/82; PULSE 99; RESP 18; TEMP 98.2; O2SAT 98
[2017-02-16 20:20] VITALS: PULSE 89
--- NOTE | 2017-02-16 20:22 | RADRPT ---
EXAM DATE/TIME: 02/16/2017 19:49 [facility] COMPARISON: No previous studies available for comparison. INDICATIONS : Syncope. MEDICAL HISTORY : Hypercholesterolemia. Gastroesophageal reflux disease. Chronic obstructive pulmonary disease. Cerebro vascular accident. Myocardial infarction. Congestive heart failure. Hypertension. Diabetes. Arth ritis. SURGICAL HISTORY : Tonsillectomy. Cholecystectomy. Tubal ligation. Cardiac catheterization. Uterine ablation. section. Hysterectomy. ENCOUNTER: Initial ACUITY: 1 day PAIN SCORE: 4/10 LOCATION: Bilateral neck PEAK SYSTOLIC VELOCITIES (cm/sec): ICA/CCA RATIO: Right: 0.8 Left: 1.0 ICA: Right: 66.9 Left: 83.6 CCA: Right: 80.6 Left: 86.6 ECA: Right: 80.7 Left: 133.8 VERTEBRAL: Right: 46.5 antegrade Left: 35.7 antegrade Elevated flow velocities and ICA/CCA ratios have been found to correlate with increased degrees of vessel stenosis, calculated as percentage of diameter relative to a normal segment of distal ICA/CCA FINDINGS: RIGHT CAROTID: No significant stenosis is visualized. The waveforms are within normal limits. LEFT CAROTID: No significant stenosis is visualized. The waveforms are within normal limits. VERTEBRAL ARTERIES: Antegrade flow is seen in both vertebral arteries. MISCELLANEOUS: None. CONCLUSION: 1. No evidence for hemodynamically significant stenosis. Giovanni Crespo MD on February 16, 2017 at 20:20 Board Certified Radiologist. This report was verified electronically.
[2017-02-16 20:26] VITALS: BP_SYST 120; BP_SYST 130; BP_SYST 135; BP_DIAS 74; BP_DIAS 84; BP_DIAS 92; PULSE 89; RESP 18; TEMP 98.5; O2SAT 96
[2017-02-16] MEDS ORDERED: WARF-18 PO (20:33)
[2017-02-16] MEDS: INSULIN ASPART SUPPLEMENTAL SCALE SQ SCH (21:00)
[2017-02-16] MEDS: LACTOBACILLUS ACIDOPHILUS 1 GM PACKET PO SCH (21:06)
[2017-02-16] MEDS: SODIUM CHLORIDE 0.9% FLUSH 10 ML FLUSH IV FLUSH SCH (21:06)
--- NOTE | 2017-02-16 21:15 | EKG ---
Date Performed: 02/16/2017 Time Performed: 14:07:48 PTAGE: 46 years EKG: Sinus rhythm VOLTAGE CRITERIA FOR LVH NONSPECIFIC T-WAVE ABNORMALITY ABNORMAL ECG PREVIOUS TRACING : 10/20/2016 12.56 No significant change from previous tracing noted. DOCTOR: Tommy Le Interpretating Date/Time 02/16/2017 21:13:22
[2017-02-16 23:49] VITALS: BP 125/85; PULSE 77; RESP 18; TEMP 98.7; O2SAT 97
[2017-02-17 00:08] VITALS: PULSE 85
[2017-02-17 03:31] VITALS: BP 131/76; PULSE 86; RESP 18; TEMP 98; O2SAT 98
[2017-02-17 04:00] VITALS: PULSE 88
[2017-02-17 07:00] VITALS: PULSE 70
[2017-02-17] MEDS: INSULIN ASPART SUPPLEMENTAL SCALE SQ SCH (08:00)
[2017-02-17 08:06] VITALS: BP 140/85; PULSE 110; RESP 22; TEMP 98.2; O2SAT 96
[2017-02-17] MEDS: LACTOBACILLUS ACIDOPHILUS 1 GM PACKET PO SCH (10:22)
[2017-02-17] MEDS: SODIUM CHLORIDE 0.9% FLUSH 10 ML FLUSH IV FLUSH SCH (10:24)
[2017-02-17 10:39] VITALS: BP_SYST 175; BP_SYST 176; BP_SYST 182; BP_DIAS 111; BP_DIAS 121; BP_DIAS 95; PULSE 108; O2SAT 95
--- NOTE | 2017-02-17 11:14 | HHI.PR ---
Subjective Remarks Follow up for chest pain, syncope. The patient reports feeling much better today and wants to go home. She strongly feels her symptoms were all related to anxiety. She understand she should talk with a therapist about everything she is going through. She reports her chest pain resolved. She denies any lightheadedness or dizziness. She has no other medical complaints at this time. Objective Vitals Vital Signs Date Time Temp Pulse Resp B/P (MAP) Pulse Ox O2 Delivery O2 Flow Rate FiO2 02/17/17 10:39 108 175/95 (121) 95 176/111 (132) 182/121 (141) 02/17/17 08:06 98.2 110 22 140/85 (103) 96 02/17/17 04:00 88 02/17/17 03:31 98.0 86 18 131/76 (94) 98 02/17/17 00:08 85 02/16/17 23:49 98.7 77 18 125/85 (98) 97 02/16/17 22:11 18 02/16/17 20:26 98.5 89 18 130/92 (105) 96 135/84 (101) 120/74 (89) 02/16/17 20:20 89 02/16/17 18:27 02/16/17 18:26 98.2 99 18 143/82 (102) 98 02/16/17 14:48 18 98 Room Air 02/16/17 14:48 98 Room Air 02/16/17 14:04 98.1 95 24 137/82 (100) 99 Result Diagram: 02/16/17 1430 02/16/17 1430 Imaging Last Impressions Chest X-Ray 02/16/17 1412 Signed Impressions: Service Date/Time: Thursday, February 16, 2017 14:20 - CONCLUSION: No evidence of acute cardiopulmonary disease. Gavin López MD Knee X-Ray 02/16/17 0000 Signed Impressions: Service Date/Time: Thursday, February 16, 2017 17:55 - CONCLUSION: Osteoarthritis. No fracture. Giovanni Crespo MD Carotid Artery Ultrasound 02/16/17 0000 Signed Impressions: Service Date/Time: Thursday, February 16, 2017 19:49 - CONCLUSION: 1. No evidence for hemodynamically significant stenosis. Giovanni Crespo MD Objective Remarks GENERAL: Well-nourished, well-developed middle aged female patient in [facility]. SKIN: Warm and dry. No rash. HEENT: Normocephalic. Atraumatic. Pupils equal and round. Mucous membranes pink and moist. CARDIOVASCULAR: Regular rate and rhythm. S1, S2 noted. No murmur appreciated. RESPIRATORY: No accessory muscle use. Clear to auscultation. Breath sounds equal bilaterally. GASTROINTESTINAL: Abdomen soft, non-tender, nondistended. Normoactive bowel sounds x4. MUSCULOSKELETAL: No obvious deformities. Extremities without clubbing, cyanosis , or edema. NEUROLOGICAL: Awake and alert. No obvious cranial nerve deficits. Motor grossly within normal limits. Normal speech. PSYCHIATRIC: Appropriate mood and affect; insight and judgment normal. Medications and IVs Current Medications Medications (Trade) Dose Ordered Sig/Todd Route Start Time Stop Time Status Last Admin (NS Flush) 2 ml UNSCH PRN IV FLUSH 02/16/17 16:45 (NS Flush) 2 ml BID IV FLUSH 02/16/17 21:00 02/17/17 10:24 (Tylenol) 650 mg Q6H PRN PO 02/16/17 18:00 02/16/17 21:06 ([place] 7.5-325 Mg) 1 tab Q4H PRN PO 02/16/17 18:00 ([place] 10-325 Mg) 1 tab Q6H PRN PO 02/16/17 18:00 (D50w (Vial) Inj) 50 ml UNSCH PRN IV PUSH 02/16/17 18:00 (Glucagon Inj) 1 mg UNSCH PRN OTHER 02/16/17 18:00 (NovoLOG SUPPLEMENTAL SCALE) 1 ACHS SLIDING SCALE SQ 02/16/17 21:00 (Morphine Inj) 1 mg Q4H PRN IV PUSH 02/16/17 18:15 (Nitroglycerin 2% Oint) 0.5 inch Q6HR PRN TOPICAL 02/16/17 18:15 (Lovenox Inj) 40 mg Q24H SQ 02/16/17 18:15 (Lactinex Pkt) 1 gm QID PO 02/16/17 21:00 02/17/17 10:22 A/P Problem List: (1) Syncope ICD Code: R55 - Syncope and collapse Status: Acute (2) Atypical chest pain ICD Code: R07.89 - Other chest pain Status: Acute Assessment and Plan 46-year-old female with history of HTN, HLD, [place] x3 per patient, diabetes, anxiety, depression, presents with chest pain and syncope. Chest Pain: atypical. Multiple prior presentations for chest pain, strongly suspect related to anxiety, patient under a lot of stress going through a divorce. Records reviewed, nuclear stress test 08/22/15 normal. Cardiac catheterization 09/11/[address] Bush showed angiographically mild 2-vessel CAD in a right dominant system, normal LV systolic function EF 60%; recommended medical management. -Strongly suspect symptoms related to anxiety -ACS ruled out with negative serial cardiac enzymes x3 and EKG without acute ischemic changes. -Monitor on telemetry, no acute events -Continue patient's aspirin, coreg, lisinopril, statin -Nitro prn chest pain, IV morphine prn pain -chest pain resolved Syncope: suspect secondary to anxiety, rule out neurocardiogenic etiologies. -carotid U/S reviewed and unremarkable -echocardiogram done, results pending -EEG done, results pending, although doubt seizure -monitor on telemetry, no findings -neuro checks -no further events Diabetes: chronic, BG 87 -continue patient's home meds including levemir and glipizide -monitor Accu-Checks and cover with SSI Hypertension: chronic, BP fairly well controlled -continue patient's home meds once updated -monitor BP, adjust antihypertensives as needed Hyperlipidemia: chronic -continue patient's statin Anxiety: acute on chronic, likely contributing to patient's symptoms -continue patient's effexor -counseled on following up with a psychiatrist/therapist Left Knee Pain: suspect knee sprain with syncopal event -left knee xray shows osteoarthritis, negative for fracture -norco and IV morphine prn pain Diarrhea: patient reports 3 days of diarrhea -monitor BMs -start on lactinex -BMs improved DVT Prophylaxis: Lovenox sq Discharge Planning Will follow up on EEG and Echo results after discharge, and will contact patient if abnormal. Patient understanding and agreeable with this plan. Discharge patient to home Condition on discharge: Improved Heart Healthy/Diabetic Diet as tolerated Ad Zainab activity Rx written: no new medications Follow-up with primary care physician in 2-3 days and psychiatry Grace Mckeon PA-C Feb 17, 2017 11:14 am
[2017-02-17] MEDS ORDERED: ASPIRIN 81 MG CHEW TAB CHEW SCH (11:45)
[2017-02-17] MEDS ORDERED: SPIRONOLACTONE 25 MG TAB PO SCH (11:45)
[2017-02-17] MEDS ORDERED: VENLAFAXINE HCL XR 75 MG CAP PO SCH (11:45)
[2017-02-17] MEDS ORDERED: CARVEDILOL 3.125 MG TAB PO SCH (11:45)
[2017-02-17] MEDS ORDERED: glipiZIDE 10 MG TAB PO SCH (11:45)
[2017-02-17] MEDS ORDERED: LISINOPRIL 20 MG TAB PO SCH (11:45)
--- NOTE | 2017-02-17 12:28 | HHI.DCPOC ---
Discharge Care Plan Diagnosis: (1) Anxiety (2) Atypical chest pain (3) Syncope Goals to Promote Your Health * To prevent worsening of your condition and complications * To maintain your health at the optimal level Directions to Meet Your Goals Take your medications as prescribed Follow your dietary instruction Follow activity as directed Keep your appointments as scheduled Take your immunizations and boosters as scheduled If your symptoms worsen call your PCP, if no PCP go to Urgent Care Center or Emergency Room Smoking is Dangerous to Your Health. Avoid second hand smoke Call the 24-hour hour crisis hotline for domestic abuse at Grace Mckeon PA-C Feb 17, 2017 12:28 pm
--- NOTE | 2017-02-17 12:57 | ECHRPT ---
Indication: CONCLUSIONS Normal left ventricular size. Wall thickness is measured at the upper limits of normal. The left ventricular systolic function is low normal with an estimated ejection fraction in the rang e of 50- 55%. BP: 131 / 76 HR: 86 Rhythm: MEASUREMENTS (Male / Female) Normal Values Technical Quality: 2D ECHO LV Diastolic Diameter PLAX 4.4 cm 4.2 - 5.9 / 3.9 - 5.3 cm LV Systolic Diameter PLAX 3.4 cm IVS Diastolic Thickness 1.2 cm 0.6 - 1.0 / 0.6 - 0.9 cm LVPW Diastolic Thickness 0.7 cm 0.6 - 1.0 / 0.6 - 0.9 cm LV Relative Wall Thickness 0.4 LA Systolic Diameter LX 3.5 cm 3.0 - 4.0 / 2.7 - 3.8 cm DOPPLER Mitral E Point Velocity 97.4 cm/s Mitral A Point Velocity 132.0 cm/s Mitral E to A Ratio 0.7 TR Peak Velocity 193.0 cm/s TR Peak Gradient 14.9 mmHg FINDINGS LEFT VENTRICLE Normal left ventricular size. Wall thickness is measured at the upper limits of normal. The left ventricular systolic function is low normal with an estimated ejection fraction in the rang e of 50- 55%. RIGHT VENTRICLE Normal right ventricular size and systolic function. LEFT ATRIUM The left atrial size is normal. RIGHT ATRIUM The right atrial size is normal. ATRIAL SEPTUM Normal atrial septal thickness without atrial level shunting by limited color doppler interrogation. AORTA The aortic root and proximal ascending aorta are normal in size on limited imaging. MITRAL VALVE Structurally normal mitral valve. No mitral valve stenosis or regurgitation. AORTIC VALVE Trileaflet aortic valve. No aortic valve stenosis or regurgitation. TRICUSPID VALVE Structurally normal tricuspid valve. No tricuspid valve stenosis or regurgitation. PULMONARY VALVE The pulmonary valve is not well visualized. VESSELS The inferior vena cava is normal in size. PERICARDIUM No pericardial effusion. Marko Sylvester MD (Electronically Signed) Final Date:17 February 2017 12:56
--- NOTE | 2017-02-17 14:09 | MG ---
cc: SAVAGE CHAN M.D. Lab No: [id number] Date: 02/17/2017 Age: Sex: F Race: TECHNIQUE This is a 17-channel EEG. DESCRIPTION: The background rhythm reveals a symmetrical alpha rhythm. Frequency is about 9-10 Hz, amplitude is 10-20 microvolts. No lateralizing features are identified and no epileptiform features are identified. There is some EKG artifact. Occasional muscle artifact is identified. Hyperventilation was not done. Photic results in a normal driving response. INTERPRETATION Normal EEG. MD LOVELY Escalona/KRUPA /2:00 PM /2:10 PM
[2017-02-17] MEDS ORDERED: FAMOTIDINE 20 MG TAB PO SCH (21:00)
[2017-02-17] MEDS ORDERED: ATORVASTATIN 10 MG TAB PO SCH (21:00)
== END 2017-02-17 17:45 | disposition home or self-care (01) ==
LOC: NEPC 13:51 → NEDA 16:32 → NEPGCP 18:40
PROVIDERS: ADMIT Hospitalist; ATTEND Hospitalist
DX: R07.89 Other chest pain (principal); F41.9 Anxiety disorder, unspecified; I10 Essential (primary) hypertension; R55 Syncope and collapse; E78.5 Hyperlipidemia, unspecified; E11.9 Type 2 diabetes mellitus without complications; I25.2 Old myocardial infarction; M25.562 Pain in left knee; R19.7 Diarrhea, unspecified; R94.31 Abnormal electrocardiogram [ECG] [EKG]
CPT/HCPCS: 71010; 73564; 80053; 82550; 82948; 83735; 84484; 85007; 85027; 85610; 85730; 93005; 93306; 93880; 95819; 97161; 99285; G0378; G8987; G8988; G8989

== ENCOUNTER 2017-10-01 18:17 | Emergency (ER) | payer OTHER ==
[~2017-10-01] VITALS: Ht 165.1 cm; Wt 122.0 kg
[~2017-10-01 18:17] MED LIST changes: -IBUP1TAB7 PO; -MACR100C2 PO; -VENL75CA44 PO
[2017-10-01 18:20] VITALS: BP 201/106; PULSE 103; RESP 16; TEMP 97.9; O2SAT 96
[2017-10-01] MEDS ORDERED: EFFE150C PO (18:35)
[2017-10-01] MEDS ORDERED: FURO1TAB60 PO (18:35)
[2017-10-01] MEDS ORDERED: KETOROLAC TROMETHAMINE 60 MG/2 ML (IM) VIAL IM ONE (18:45)
--- NOTE | 2017-10-01 18:48 | PD ---
HPI Chief Complaint: Injury Time Seen by Provider: 18:35 Travel History International Travel<30 days: No Contact w/Intl Traveler<30days: No Traveled to known affect area: No History of Present Illness HPI 47 year old female presents to the emergency department for evaluation of left knee and ankle pain. Patient states she was jogging when she accidently stepped in a hole and fell on her left leg. Patient denies any head injury. No LOC. No neck or back pain. She states she has history of DM and HTN. She states she has a MD appointment tomorrow to check on her blood pressure as her doctors is changing her medications. Patient states her pain is currently 9/10 , worse with ambulation, movement. Pain is slightly alleviated with keeping the leg still. No other symptoms or complaints. Mild severity. PFSH Past Medical History Hx Anticoagulant Therapy: Yes (COUMADIN) Arthritis: Yes Asthma: Yes Autoimmune Disease: Yes (Rheumatoid Arthritis) Blood Disorders: No Anxiety: Yes Depression: Yes Heart Rhythm Problems: No Cancer: No Cardiac Catheterization: Yes Cardiovascular Problems: Yes ([place] X 3) High Cholesterol: Yes Chemotherapy: No Chest Pain: Yes Congestive Heart Failure: Yes (from chronic htn per pt) COPD: Yes (chronic bronchitis) Cerebrovascular Accident: Yes Diabetes: Yes (INSULIN AND PILLS) Patient Takes Glucophage: No Diminished Hearing: No Endocrine: Yes Gastrointestinal Disorders: Yes GERD: Yes (GERD) Genitourinary: No Headaches: Yes Hiatal Hernia: No Hypertension: Yes Immune Disorder: No Implanted Vascular Access Dvce: Yes Kidney Stones: No Musculoskeletal: Yes Neurologic: Yes (NEUROPATHY) Psychiatric: Yes Reproductive: Yes (UTERINE ABLATION) Respiratory: Yes (ASTHMA) Immunizations Current: Yes Migraines: Yes Myocardial Infarction: Yes Radiation Therapy: No Renal Failure: No Seizures: No Sickle Cell Disease: No Sleep Apnea: Yes (CPAP) Thyroid Disease: No Ulcer: No Tetanus Vaccination: < 5 Years Influenza Vaccination: Yes ?: Not LMP: ABLATION Menopausal: Yes : 2 Para: 2 Tubal Ligation: Yes Past Surgical History Abdominal Surgery: Yes (choley) AICD: No Cardiac Surgery: Yes (Cardiac Cath ) Section: Yes (X 2) Cholecystectomy: Yes Coronary Artery Bypass Graft: No Ear Surgery: No Eye Surgery: No Genitourinary Surgery: Yes (Gallbladder removed 2007) Gynecologic Surgery: Yes (UTERINE ABLATION, 2003/ tubal ligation ) Hysterectomy: Yes Insulin Pump: No Joint Replacement: No Oral Surgery: Yes (tonsils and adenoids) Pacemaker: No Thoracic Surgery: No Tonsillectomy: Yes Other Surgery: Yes (c/sect.x2,cholest.,t/a, uterine ablation) Family History Family Myocardial Infarction: Yes Social History Alcohol Use: Yes (OCC) Tobacco Use: No Substance Use: No Allergies-Medications (Allergen,Severity, Reaction): Coded Allergies: Sulfa (Sulfonamide Antibiotics) (Verified Allergy, Severe, SHORTNESS OF BREATH, 10/01/17) amoxicillin (Verified Allergy, Severe, RASH, SOB, 10/01/17) bee venom protein (honey bee) (Verified Allergy, Severe, Anaphylaxis, 10/01) clavulanic acid (Verified Allergy, Severe, RASH, SOB, 10/01/17) penicillin G (Verified Allergy, Severe, HIVES, SOB, 10/01/17) diphenhydramine (Verified Allergy, Intermediate, hives, 10/01/17) amlodipine (Verified Allergy, Unknown, RASH SOB, 10/01/17) latex (Verified Allergy, Unknown, HIVES, 10/01/17) Reported Meds & Prescriptions Reported Meds & Active Scripts Active Lipitor (Atorvastatin Calcium) 10 Mg Tab 10 Mg PO HS 30 Days Coreg (Carvedilol) 3.125 Mg Tab 3.125 Mg PO BID 30 Days Reported Lasix (Furosemide) 40 Mg Tab 40 Mg PO DAILY Effexor XR 24 HR (Venlafaxine HCl) 150 Mg Cap 175 Mg PO HS Venlafaxine ER 24 HR (Venlafaxine HCl) 150 Mg Cap 150 Mg PO DAILY Gabapentin 400 Mg Cap 400 Cap PO HS Glipizide 10 Mg Tab 10 Mg PO DAILY Take 30 minutes before a meal Aspirin 81 Low Dose (Aspirin) 81 Mg Chew 81 Mg CHEW DAILY Amlodipine (Amlodipine Besylate) 10 Mg Tab 10 Mg PO DAILY Levemir Inj (Insulin Detemir) 1,000 unit/ 10 ML Vial 50 Units SQ BID Do not mix with any other Insulin. Proair Hfa 8.5 GM Inh (Albuterol Sulfate) 90 Mcg/Act Aer 2 Puff INH Q4-6H PRN 108 mcg/actuation Ranitidine (Ranitidine HCl) 150 Mg Tab 150 Mg PO HS Lisinopril 40 Mg Tab 40 Mg PO DAILY Review of Systems Except as stated in HPI: all other systems reviewed are Neg Physical Exam Narrative GENERAL: Well-nourished, well-developed female patient, afebrile. SKIN: Focused skin assessment warm/dry. HEAD: Normocephalic. Atraumatic. EYES: No scleral icterus. No injection or drainage. NECK: Supple, trachea midline. No JVD or lymphadenopathy. CARDIOVASCULAR: Left pedal pulse is 2+ RESPIRATORY: No accessory muscle use. MUSCULOSKELETAL: No cyanosis, or edema. Patient has tenderness over left lateral ankle and left lateral knee with reduced ROM due to pain. No obvious deformity. BACK: Nontender without obvious deformity. No CVA tenderness. Data Data Last Documented VS Vital Signs Date Time Temp Pulse Resp B/P (MAP) Pulse Ox O2 Delivery O2 Flow Rate FiO2 10/01/17 18:20 97.9 103 16 201/106 (137) 96 Orders Orders Ankle, Complete (Bla4hnh) (10/01/17 ) Knee, Complete (4vws) (10/01/17 ) Ketorolac Inj (Toradol Inj) (10/01/17 18:45) MDM Medical Decision Making Medical Screen Exam Complete: Yes Emergency Medical Condition: Yes Medical Record Reviewed: Yes Interpretation(s) Last Impressions Knee X-Ray 10/01/17 0000 Signed Impressions: CONCLUSION: Degenerative changes without fracture. Ankle X-Ray 10/01/17 0000 Signed Impressions: CONCLUSION: Soft tissue swelling without fracture. Differential Diagnosis sprain vs. fracture vs dislocation Narrative Course 47 year old female presents to the emergency department for evaluation of left ankle and knee pain after she fell today. Patient is given Toradol 60 mg IM. X -ray of the left ankle and left knee are ordered and pending. X-ray of the left ankle shows no acute bony injury. X-ray of the left knee shows degenerative changes without fracture. Patient is provided Felipe bandage as to her left knee and ankle. She declines crutches at this time. Patient will be discharged a prescription for ibuprofen. Patient states she has an appointment tomorrow with her primary care physician to follow-up on her blood pressure. The patient was discharged in stable condition with instructions, including return instructions and follow up instructions. Diagnosis Primary Impression: Left ankle sprain Qualified Codes: S93.402A - Sprain of unspecified ligament of left ankle, initial encounter Additional Impression: Left knee sprain Qualified Codes: S83.92XA - Sprain of unspecified site of left knee, initial encounter Referrals: Primary Care Physician 1 day Patient Instructions: Ankle Sprain (ED), General Instructions, Knee Sprain (ED) Additional Instructions: Wear Felipe bandage as needed for support. Elevate. Ice for 20 minutes 4-5 times daily. Take ibuprofen as directed as needed with food for pain. Follow-up with your primary care physician tomorrow as scheduled for your blood pressure and for reevaluation. Return to the emergency department for any acute worsening of symptoms. Med/Other Pt SpecificInfo: Prescription(s) given Scripts Ibuprofen (Ibuprofen) 600 Mg Tab 600 MG PO TID Y for PAIN SCALE 1 TO 10, #21 TAB 0 Refills Prov: Radha Bland 10/01/17 Disposition: 01 DISCHARGE HOME Condition: Stable Radha Bland Oct 01, 2017 18:48
--- NOTE | 2017-10-01 19:39 | RADRPT ---
EXAM DATE: 10/01/2017 7:10 PM EDT AGE/SEX: 47 years / Female INDICATIONS: Left ankle pain after patient fell and twisted her ankle today CLINICAL DATA: This is the patient's initial encounter. Patient reports that signs and symptoms have been present for 1 day and indicates a pain score of 8/10. MEDICAL/SURGICAL HISTORY: None. None. COMPARISON: No prior exams available for comparison. FINDINGS: Bony structures are intact and in normal alignment. Joints are intact without dislocation or signifi cant arthropathy. Osseous density is normal. Small plantar calcaneal spur. Soft tissue swelling. No radiopaque foreign bodies seen. CONCLUSION: Soft tissue swelling without fracture. Electronically signed by: Reji Laboy MD 10/01/2017 7:37 PM EDT
--- NOTE | 2017-10-01 19:39 | RADRPT ---
EXAM DATE: 10/01/2017 7:12 PM EDT AGE/SEX: 47 years / Female INDICATIONS: Left lateral knee pain after patient fell and twisted her ankle today CLINICAL DATA: This is the patient's initial encounter. Patient reports that signs and symptoms have been present for 1 day and indicates a pain score of 7/10. MEDICAL/SURGICAL HISTORY: None. None. COMPARISON: [facility] – [place], KNEE LEFT COMPLETE (4VWS), 02/16/2017. . FINDINGS: Views of left knee demonstrates mild to moderate degenerative changes. No fracture or effusion. Soft tissues are unremarkable. No radiopaque foreign bodies seen. CONCLUSION: Degenerative changes without fracture. Electronically signed by: Reji Laboy MD 10/01/2017 7:38 PM EDT
[2017-10-01] MEDS ORDERED: IBUP-232 PO (19:56)
[2017-10-01 20:11] VITALS: BP 200/102; PULSE 82; RESP 16; O2SAT 95
== END 2017-10-01 20:14 | disposition home or self-care (01) ==
LOC: PHEFT 18:17
DX: S93.402A Sprain of unspecified ligament of left ankle, initial encounter (principal); S83.92XA Sprain of unspecified site of left knee, initial encounter; E11.9 Type 2 diabetes mellitus without complications; E78.00 Pure hypercholesterolemia, unspecified; I11.0 Hypertensive heart disease with heart failure; I50.9 Heart failure, unspecified; K21.9 Gastro-esophageal reflux disease without esophagitis; F32.9 Major depressive disorder, single episode, unspecified; W17.2XXA Fall into hole, initial encounter; Y93.02 Activity, running; Z79.01 Long term (current) use of anticoagulants; Z79.4 Long term (current) use of insulin
CPT/HCPCS: 73564; 73610; 96372; 99283; J1885

== ENCOUNTER 2017-11-03 01:21 | Observation (INO) ==
[2017-11-03 01:57] LABS: Baso # (Auto) 0.1 th/mm3 (0.0-0.2); Baso % (Auto) 0.9 % (0.0-2.0); Eos # (Auto) 0.2 th/mm3 (0.0-0.4); Eos % (Auto) 1.6 % (0.0-4.0); Hematocrit 38.6 % (35.0-46.0); Hemoglobin 12.8 gm/dL (11.6-15.3); Lymph # (Auto) 5.9 th/mm3 (1.0-4.8); Lymph % (Auto) 54.4 % (9.0-44.0); Mean Corpuscular HGB Conc 33.2 % (32.0-36.0); Mean Corpuscular Hemoglobin 28.1 pg (27.0-34.0); Mean Corpuscular Volume 84.4 fL (80.0-100.0); Mean Platelet Volume 10.7 fL (7.0-11.0); Mono # (Auto) 0.5 th/mm3 (0.0-0.9); Mono % (Auto) 4.5 % (0.0-8.0); Neut # (Auto) 4.2 th/mm3 (1.8-7.7); Neut % (Auto) 38.6 % (16.0-70.0); Platelet Count 247 th/mm3 (150-450); Red Blood Count 4.57 mil/mm3 (4.00-5.30); Red Cell Distribution Width 14.5 % (11.6-17.2); White Blood Count 10.9 th/mm3 (4.0-11.0)
[2017-11-03 02:08] LABS: Albumin 3.6 g/dL (3.4-5.0); Anion Gap 8 meq/L (5-15); Aspartate Aminotransferase 18 U/L (15-37); Blood Urea Nitrogen 14 mg/dL (7-18); Calcium 8.8 mg/dL (8.5-10.1); Carbon Dioxide 30.1 meq/L (21.0-32.0); Chloride 103 meq/L (98-107); Glomerular Filtration Rate 68 mL/min (>89); Glucose,Random 99 mg/dL (74-106); Lipase 118 U/L (73-393); Magnesium 1.8 mg/dL (1.5-2.5); Potassium 3.5 meq/L (3.5-5.1); Sodium 141 meq/L (136-145)
[2017-11-03 02:12] LABS: Activated Partial Thrombo Time 25.9 sec (24.3-30.1); Prothrombin Time 9.7 sec (9.8-11.6)
[2017-11-03 02:13] LABS: Alanine Aminotransferase 18 U/L (10-53); Alkaline Phosphatase 91 U/L (45-117); Total Protein 7.5 g/dL (6.4-8.2)
--- NOTE | 2017-11-03 03:08 | ED ---
HPI General Chief complaint: Chest Pain Stated complaint: chest pain Time Seen by Provider: 11/03/17 01:32 Source: patient Mode of arrival: EMS Limitations: no limitations History of Present Illness HPI narrative: The patient is a 47 year old female who presents to the [facility] emergency department with a history of reportedly not feeling well throughout the day today. She reports that she was mowing her lawn with a push lawnmower earlier today when she began to get lightheaded and nearly passed out. She reports that she was also having cramping in her legs. She went to a local emergency department and had an EKG done. She reports that no other laboratory studies or imaging was done at that she was told that she was hypertensive and was given clonidine p.o. 1. She was also given Protonix for stomach upset. She reports that she has problems with stomach upset when she gets anxious and was anxious throughout the day related to the symptoms. She was told to double her dose of Coreg. She reports that she did do this, however when she went to walk her dog again this evening she began to have lightheaded sensation again along with central chest pressure, shortness of breath, tingling sensations in her hands, nausea, and diaphoresis. The patient reports a prior history of myocardial infarction 3. Her last myocardial infarction was reportedly in 2016. She denies having angioplasty or stenting done, however she reports that she did have cardiac catheterization done at that time that revealed mild plaquing. She does take a low-dose aspirin daily which she did take today. The patient has a family history of cardiac disease specifically in her dad who at the age of 45 with a massive SC. Otherwise on review of systems, the patient denies having any known recent fevers, cough or congestion, neck pain, urinary symptoms, one-sided weakness, slurred speech, facial droop, difficulty with word finding ability, or vertigo. The patient reports having one episode of vomiting earlier today. She reports also having diarrhea since yesterday. She reports having 4 episodes of diarrhea today. She denies having any blood in her stool or black or tarry stools. The patient incidentally reports that she is on ciprofloxacin for a UTI that was diagnosed on Friday. Related Data Home Medications Medication Instructions Recorded Confirmed albuterol sulfate 2 puff INHALATION Q4H PRN 11/02/17 11/02/17 amlodipine 10 mg PO DAILY 11/02/17 11/02/17 aspirin [Aspirin Low Dose] 81 mg PO DAILY 11/02/17 11/02/17 carvedilol 3.125 mg PO BID 11/02/17 11/02/17 clindamycin HCl 300 mg PO BID 11/02/17 11/02/17 dicyclomine 10 mg PO QID 11/02/17 11/02/17 furosemide 40 mg PO DAILY 11/02/17 11/02/17 gabapentin 300 mg PO DAILY 11/02/17 11/02/17 glipizide 10 mg PO BID 11/02/17 11/02/17 hydrocodone-acetaminophen 1 tab PO Q4H PRN 11/02/17 11/02/17 ibuprofen 800 mg PO TID PRN 11/02/17 11/02/17 insulin detemir U-100 [Levemir 50 unit SUB-Q BID 11/02/17 11/02/17 FlexTouch U-100 Insuln] lisinopril 40 mg PO DAILY 11/02/17 11/02/17 multivitamin 1 tab PO DAILY 11/02/17 11/02/17 rosuvastatin 40 mg PO DAILY 11/02/17 11/02/17 venlafaxine 75 mg PO BID 11/02/17 11/02/17 venlafaxine 150 mg PO TID 11/02/17 11/02/17 Allergies Allergy/AdvReac Type Severity Reaction Status Date / Time amoxicillin Allergy Severe RASH, SOB Verified 11/02/17 12:04 bee venom protein (honey bee) Allergy Severe Anaphylaxis Verified 11/02/17 12:04 clavulanic acid Allergy Severe RASH, SOB Verified 11/02/17 12:04 penicillin G Allergy Severe HIVES, SOB Verified 11/02/17 12:04 Sulfa (Sulfonamide Allergy Severe SHORTNESS Verified 11/02/17 12:04 Antibiotics) OF BREATH diphenhydramine Allergy Intermediate hives Verified 11/02/17 12:04 amlodipine Allergy Unknown pt denies Verified 11/02/17 12:04 latex Allergy Unknown HIVES Verified 11/02/17 12:04 Review of Systems ROS Unobtainable All other systems reviewed negative except as stated in [facility] Medical History Medical History Anxiety (Acute) CHF (congestive heart failure) (Acute) Diabetes (Acute) Asthma (Acute) Chronic bronchitis (Acute) Depression (Acute) Diabetes (Acute) Elevated cholesterol (Acute) H/O endoscopy (Acute) HTN (hypertension) (Acute) Neuropathy (Acute) Rheumatoid arteritis (Acute) Rheumatoid arthritis (Acute) Surgical History Surgical History H/O cardiac catheterization (Acute) H/O colonoscopy (Acute) History of (Acute) History of adenoidectomy (Acute) History of endometrial ablation (Acute) History of tonsillectomy (Acute) Hx laparoscopic cholecystectomy (Acute) Social History Social History Substance History: No History of Abuse Second Hand Smoke Exposure: No Smoking Status: Never smoker How Often Do You Have a Drink Containing Alcohol: Never Recent Travel in [facility] within the Last 8 Weeks: No Recent Out of Country Travel within the Last 8 Weeks: No Immunization History Tetanus Immunization: >5 Years Hx Influenza Vaccine This Season: No Exam Const General: cooperative, no acute distress and well developed Nutritional Appearance: well nourished Orientation: alert, awake and oriented x3 HENMT Head: normocephalic and atraumatic Nose: no nasal discharge and no epistaxis Mouth: moist mucous membranes Throat: posterior oropharynx normal Eyes Sclera: normal sclerae Pupils: PERRL Neck Neck: no meningeal signs, trachea midline and no JVD Resp Effort & Inspection: no use of accessory muscles Auscultation: clear to auscultation bilaterally Cardio Rate: regular rate Rhythm: regular rhythm Heart Sounds: no murmurs GI Inspection: non-distended Palpation: soft, no hepatosplenomegaly and nontender Back/Spine/Pelvis Back: no CVA tenderness Skin General: dry skin (warm) Neuro General: alert, awake and oriented x3 Cranial Nerves: CN's II-XI intact bilaterally Speech: speech normal Motor: no movement abnormalities noted Extrem General: normal to inspection, no clubbing, no cyanosis and no edema Psych Mood: congruent mood Affect: normal affect Judgment: judgment good Course Initial Documented Vital Signs Temperature 98.5 F 11/03/17 01:34 Pulse Rate 92 H 11/03/17 01:34 Respiratory Rate 18 11/03/17 01:34 Blood Pressure 191/92 H 11/03/17 01:34 Pulse Oximetry 96 11/03/17 01:34 Last Documented Vital Signs Temperature 98.5 F 11/03/17 01:34 Pulse Rate 82 11/03/17 01:46 Respiratory Rate 16 11/03/17 01:49 Blood Pressure 173/102 H 11/03/17 01:49 Pulse Oximetry 96 11/03/17 01:58 Medical Decision Making MDM Narrative Medical decision making narrative: During the course of the patient's emergency department visit, the patient's history, examination, and differential diagnosis were reviewed with the patient. The patient was placed on a cardiac rehabilitation specialist with oximetry and frequent blood pressure monitoring. The patient had IV access obtained and blood work sent for analysis. Diagnostic evaluation was started to determine the underlying cause for the patient's near syncope, chest pain, shortness of breath. The patient was initially provided aspirin 243 mg p.o. 1, nitroglycerin sublingual 1, nitroglycerin 1 inch the chest wall. The patient's laboratory studies are remarkable for a white count of 10.9, platelets 247, neutrophil percent 23Lymphocytes 54.4, hemoglobin 12.2. PT 9.7, INR 1.0, PTT 25.9, chemistry is remarkable for troponin I of less than 0.02, GFR 68, lipase is 118. Chest x-ray shows no acute cardiopulmonary disease. Given the patient's chest pain with exertion, history of hypertension, hyperlipidemia, prior history of myocardial infarction, the patient will be admitted to the chest pain center for rule out serial cardiac enzyme protocol and consideration of stress testing. The patient's results were discussed with the patient, including the plan of care. I explained that further testing and/ or monitoring is indicated based on the patient's history, examination, and/ or laboratory findings. Therefore, I recommended admission for additional evaluation. The patient expressed understanding and was agreeable with this plan. The patient was admitted to the hospital in stable condition and sent to a bed under the care of [facility]. Differential Diagnosis Differential Diagnosis: Acute coronary syndrome, versus dehydration, versus orthostasis, versus electrolyte derangements, versus cardiac arrhythmia Medical Records Medical records reviewed: Yes I reviewed the patient's medical records. Lab Data Lab results reviewed: Yes I reviewed the patient's lab results. Result diagrams: 11/03/17 01:43 11/03/17 01:43 Lab Results 11/03/17 11/03/17 11/03/17 Range/Units 01:43 01:43 01:43 WBC 10.9 (4.0-11.0) th/mm3 RBC 4.57 (4.00-5.30) mil/mm3 Hgb 12.8 (11.6-15.3) gm/dL Hct 38.6 (35.0-46.0) % MCV 84.4 (80.0-100.0) fL MCH 28.1 (27.0-34.0) pg MCHC 33.2 (32.0-36.0) % RDW 14.5 (11.6-17.2) % Plt Count 247 (150-450) th/mm3 MPV 10.7 (7.0-11.0) fL Prelim Diff (Auto) Slide review pending Neut % (Auto) 38.6 (16.0-70.0) % Lymph % (Auto) 54.4 H (9.0-44.0) % [place] % (Auto) 4.5 (0.0-8.0) % Eos % (Auto) 1.6 (0.0-4.0) % Baso % (Auto) 0.9 (0.0-2.0) % Neut # (Auto) 4.2 (1.8-7.7) th/mm3 Lymph # (Auto) 5.9 H (1.0-4.8) th/mm3 [place] # (Auto) 0.5 (0.0-0.9) th/mm3 Eos # (Auto) 0.2 (0.0-0.4) th/mm3 Baso # (Auto) 0.1 (0.0-0.2) th/mm3 WBC Differential Manual diff final Seg Neuts % (Manual) 23 (16-70) % Band Neuts % (Manual) 1 (0-6) % Lymphocytes % (Manual) 74 H (9-44) % Monocytes % (Manual) 2 (0-8) % Abs Neuts (Manual) 2.6 (1.8-7.7) th/mm3 Differential Comment . Smudge Cells Present H (None) Platelet Estimate Normal (Normal) Platelet Morphology Enlarged H (Normal) RBC Morphology Normal (Normal) PT 9.7 L (9.8-11.6) sec INR 1.0 Ratio APTT 25.9 (24.3-30.1) sec Sodium 141 (136-145) meq/L Potassium 3.5 (3.5-5.1) meq/L Chloride 103 (98-107) meq/L Carbon Dioxide 30.1 (21.0-32.0) meq/L Anion Gap 8 (5-15) meq/L BUN 14 (7-18) mg/dL Creatinine 0.89 (0.50-1.00) mg/dL Estimated GFR 68 L (>89) mL/min Random Glucose 99 (74-106) mg/dL Calcium 8.8 (8.5-10.1) mg/dL Magnesium 1.8 (1.5-2.5) mg/dL Total Bilirubin 0.3 (0.2-1.0) mg/dL AST 18 (15-37) U/L ALT 18 (10-53) U/L Alkaline Phosphatase 91 (45-117) U/L Troponin I Less than 0.02 L (0.02-0.05) ng/mL Total Protein 7.5 (6.4-8.2) g/dL Albumin 3.6 (3.4-5.0) g/dL Lipase 118 (73-393) U/L Imaging Data Radiologist's impression: Chest X-Ray 11/03/17 01:34 CONCLUSION: No acute cardiopulmonary process ECG Data Attestation: I personally reviewed and interpreted this ECG as follows: Interpretation: The patient had an EKG done on arrival. The patient's EKG shows a sinus rhythm heart rate of 82, QRS duration 86 ms, QTC 442 ms. Voltage criteria for LVH are met, no acute ST segment elevation. Discharge Plan Discharge Disposition Patient Disposition: 30 Still Patient Discharge Details Diagnosis: Chest pain, rule out acute myocardial infarction Physicians Team ED Provider: Tami Moreno Primary Care Provider: Jada York Rxs /Orders / Referrals /Forms Prescriptions: No Action multivitamin Tablet 1 tab PO DAILY RF: 0 furosemide 40 mg Tablet 40 mg PO DAILY RF: 0 venlafaxine 75 mg Tablet 75 mg PO BID RF: 0 clindamycin HCl 300 mg Capsule 300 mg PO BID RF: 0 ibuprofen 800 mg Tablet 800 mg PO TID PRN (Reason: Pain) RF: 0 glipizide 10 mg Tablet 10 mg PO BID RF: 0 venlafaxine 150 mg Capsule,Extended Release 24hr 150 mg PO TID RF: 0 aspirin [Aspirin Low Dose] 81 mg Tablet,Delayed Release (Dr/Ec) 81 mg PO DAILY RF: 0 carvedilol 3.125 mg Tablet 3.125 mg PO BID RF: 0 amlodipine 10 mg Tablet 10 mg PO DAILY RF: 0 hydrocodone-acetaminophen 7.5-325 mg Tablet 1 tab PO Q4H PRN (Reason: Pain) RF: 0 gabapentin 300 mg Capsule 300 mg PO DAILY RF: 0 albuterol sulfate 90 mcg/actuation Hfa Aerosol Inhaler 2 puff INHALATION Q4H PRN (Reason: Shortness Of Breath Or Wheezing) RF: 0 lisinopril 40 mg Tablet 40 mg PO DAILY RF: 0 dicyclomine 10 mg Capsule 10 mg PO QID RF: 0 rosuvastatin 40 mg Tablet 40 mg PO DAILY RF: 0 insulin detemir U-100 [Levemir FlexTouch U-100 Insuln] 100 unit/mL (3 mL) Insulin Pen 50 unit SUB-Q BID RF: 0 Discharge Instructions Patient Printed Instructions: Chest Pain (ED) Discharge Interventions Interventions: Vital Signs Last Done: 11/03/17 01:46 Status ED Status: With Doctor
[2017-11-03 03:14] LABS: Lymphocytes 74 % (9-44); Monocytes 2 % (0-8)
[2017-11-03 03:16] LABS: Platelet Estimate Normal (Normal)
[2017-11-03 03:17] LABS: RBC Morphology Normal (Normal); Smudge Cells Present
--- NOTE | 2017-11-03 03:29 | XR ---
EXAM DATE: 11/03/2017 3:23 AM EDT AGE/SEX: 47 years / Female INDICATIONS: Chest pain. CLINICAL DATA: This is the patient's initial encounter. Patient reports that signs and symptoms have been present for 1 day and indicates a pain score of 5/10. MEDICAL/SURGICAL HISTORY: Asthma. Hypertension. Diabetes. None. COMPARISON: [facility] [place], CHEST SINGLE AP, 02/16/2017. . FINDINGS: A single AP view of the chest demonstrates the lungs to be symmetrically aerated without evidence of mass, infiltrate or effusion. The cardiomediastinal contours are unremarkable. Osseous structures a re intact. CONCLUSION: No acute cardiopulmonary process Electronically signed by: Clifton Butler MD 11/03/2017 3:28 AM EDT
[2017-11-03] MEDS ORDERED: Acetaminophen 325 MG Tablet PO ONE (03:32)
[2017-11-03] MEDS ORDERED: Acetaminophen 500 MG Tablet PO PRN (04:58)
[2017-11-03] MEDS ORDERED: Sod Chloride 0.9% Inj 1,000 ML IV.CONT SCH (05:00)
[2017-11-03 06:40] LABS: Creatine Kinase 81 U/L (26-192)
[2017-11-03 08:50] VITALS: O2SAT 95
--- NOTE | 2017-11-03 08:56 | P.HPCA ---
History of Present Illness Primary Care Physician: BIENVENIDO Pascual Chief Complaint: Chest pain History of Present Illness: 47-year-old female with history of hypertension, type 2 diabetes, and hyperlipidemia presents emergency room for further evaluation of intermittent, non-exertional chest pain. Onset 930 pm. Location substernal. Characterized as "someone sitting on my chest." Severity moderate. No radiation. Bilateral arms and left leg became numb. Duration 20-30 seconds. Discomfort comes on quickly and gradually subsides. Approx 10 episodes/hour for 2 hours. Associated symptoms included nausea, 1 nonbloody emesis, and "shallow breathing." No dyspnea, did not hurt to take a deep breath. No diaphoresis. No known precipitating factors. Relieving factors included laying down and "relaxing." No further chest discomfort since arriving to ER. Currently on antibiotic therapy for UTI and recent increase in blood pressure medication last week. Reports increase in situation stress as step son recently from overdose 2 months ago. Past cardiac testing 09/13/2016 cardiac catheterization (Dr Bush) Conclusion 1. Angiographically mild two-vessel coronary artery disease and a right dominant system as detailed above.2. Normal LV systolic function, EF 60%. 3. Normal right heart pressures. 4. Recommend medical management of coronary artery disease, cardiac risk factor modification. 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 - Diagnosis (1) Chest pain, atypical (2) Hypertension (3) Diabetes mellitus, type II, insulin dependent (4) Situational anxiety Review of Systems All other systems reviewed negative except as stated in HPI Psychiatric: Reports anxiety, Reports change in appetite, Reports depression, Reports lack of enjoyment, Denies thoughts of hurting/killing yourself Comments: Requesting anti anxiety medication COUNTS INCLUDE 234 BEDS AT THE [facility] - History History Provided By: Patient - Medical History Medical History: Medical History (Last Reviewed 11/03/17 @ 09:29 by BIENVENIDO Silveira) Anxiety CHF (congestive heart failure) Diabetes Asthma Chronic bronchitis Depression Diabetes Elevated cholesterol H/O endoscopy HTN (hypertension) Neuropathy Rheumatoid arteritis Rheumatoid arthritis - Surgical History Surgical History: Surgical History (Last Reviewed 11/03/17 @ 09:29 by BIENVENIDO Silveira) H/O cardiac catheterization H/O colonoscopy History of History of adenoidectomy History of endometrial ablation History of tonsillectomy Hx laparoscopic cholecystectomy - Family History Family History: Family History (Last Updated 11/03/17 @ 09:29 by BIENVENIDO Silveira) Father Family history of acute myocardial infarction - Tobacco History Second Hand Smoke Exposure: No Tobacco Use In Past 30 Days: No Smoking Status: Never smoker - Alcohol History How Often Do You Have a Drink Containing Alcohol: Never - Substance Use History Substance History: No History of Abuse - Travel History History of Recent Travel: No Recent Travel in the [place] Within the Last 8 Weeks: No Recent Travel Out of the Country Within the Last 8 Weeks: No - Immunization History Tetanus Immunization: >5 Years Hx Influenza Vaccine This Season: No Medications and Allergies Active Medications: Active Medications Acetaminophen (Tylenol) 500 mg PO Q4H PRN PRN Reason: HEADACHE Famotidine (Pepcid) 20 mg PO BID TUCKER Sodium Chloride (Ns Inj) 1,000 mls @ 100 mls/hr IV.CONT .Q10H TUCKER Last Admin: 11/03/17 06:45 Dose: 100 mls/hr Sodium Chloride (Ns Flush) 2 ml IV.FLUSH UNSCH PRN PRN Reason: FLUSH AFTER USING IV ACCESS Last Admin: 11/03/17 01:59 Dose: 2 ml Sodium Chloride (Ns Flush) 2 ml IV.FLUSH BID TUCKER Sodium Chloride (Ns Flush) 2 ml IV.FLUSH PRN PRN PRN Reason: FLUSH AFTER USING IV ACCESS Allergies Allergy/AdvReac Type Severity Reaction Status Date / Time amoxicillin Allergy Severe RASH, SOB Verified 11/02/17 12:04 bee venom protein (honey bee) Allergy Severe Anaphylaxis Verified 11/02/17 12:04 clavulanic acid Allergy Severe RASH, SOB Verified 11/02/17 12:04 penicillin G Allergy Severe HIVES, SOB Verified 11/02/17 12:04 Sulfa (Sulfonamide Allergy Severe SHORTNESS Verified 11/02/17 12:04 Antibiotics) OF BREATH diphenhydramine Allergy Intermediate hives Verified 11/02/17 12:04 amlodipine Allergy Unknown pt denies Verified 11/02/17 12:04 latex Allergy Unknown HIVES Verified 11/02/17 12:04 Home Medications Medication Instructions Recorded Confirmed Type albuterol sulfate 2 puff INHALATION Q4H PRN 11/02/17 11/03/17 History amlodipine 10 mg PO DAILY 11/02/17 11/03/17 History aspirin [Aspirin Low Dose] 81 mg PO DAILY 11/02/17 11/03/17 History carvedilol 3.125 mg PO BID 11/02/17 11/03/17 History clindamycin HCl 300 mg PO BID 11/02/17 11/03/17 History dicyclomine 10 mg PO QID 11/02/17 11/03/17 History furosemide 40 mg PO DAILY 11/02/17 11/03/17 History gabapentin 300 mg PO DAILY 11/02/17 11/03/17 History glipizide 10 mg PO BID 11/02/17 11/03/17 History hydrocodone-acetaminophen 1 tab PO Q4H PRN 11/02/17 11/03/17 History ibuprofen 800 mg PO TID PRN 11/02/17 11/03/17 History insulin detemir U-100 [Levemir 50 unit SUB-Q BID 11/02/17 11/03/17 History FlexTouch U-100 Insuln] lisinopril 40 mg PO DAILY 11/02/17 11/03/17 History multivitamin 1 tab PO DAILY 11/02/17 11/03/17 History rosuvastatin 40 mg PO DAILY 11/02/17 11/03/17 History venlafaxine 75 mg PO BID 11/02/17 11/03/17 History venlafaxine 150 mg PO TID 11/02/17 11/03/17 History Exam Vital signs: Vital Signs 11/03/17 01:34 11/03/17 01:42 11/03/17 01:45 Temperature 98.5 F Pulse Rate 92 H Respiratory Rate 18 Blood Pressure 191/92 H Blood Pressure [Right Arm] Pulse Oximetry 96 97 94 L 11/03/17 01:46 11/03/17 01:49 11/03/17 01:58 Temperature Pulse Rate 82 Respiratory Rate 16 16 Blood Pressure 191/92 H Blood Pressure [Right Arm] 173/102 H Pulse Oximetry 96 96 96 11/03/17 05:07 11/03/17 07:28 11/03/17 08:00 Temperature 98.7 F Pulse Rate 78 88 87 Respiratory Rate 16 18 Blood Pressure 179/95 H 172/90 H 196/90 H Blood Pressure [Right Arm] Pulse Oximetry 96 95 Narrative: Morbidly obese female - Constitutional no acute distress, morbidly obese, cooperative - Routine HEENT Exam Head: Present: normocephalic, atraumatic Eye: Present: EOMI, PERRL, normal accommodation ENT: Present: mucous membranes moist - Routine Neck Exam Present: supple, full ROM - Routine Chest/Breast/Axilla Exam Chest wall: Absent: tenderness - Routine Respiratory Exam Present: CTA bilaterally. Absent: respiratory distress, rhonchi, wheezes, crackles - Routine Cardiovascular Exam Present: RRR. Absent: murmur, gallop, rubs - Routine Abdominal Exam Present: soft, normoactive bowel sounds. Absent: tenderness, distended, rebound , firm - Routine Extremities Exam Present: edema, full ROM, pulses intact - Routine Skin Exam Present: intact, dry, warm, normal turgor - Routine Neurological Exam Present: alert, oriented X3, CN II-XII intact, moving all extremities, normal tone, normal speech - Routine Psychiatric Exam Present: normal affect, normal thought process, cooperative, good insight, good judgment, depressed, anxious. Absent: suicidal ideation, homicidal ideation, agitated Comments: Tearful during exam Results 11/03/17 01:43 11/03/17 01:43 Cardiac Enzymes 11/03/17 11/03/17 Range/Units 01:43 05:55 AST 18 (15-37) U/L Troponin I Less than 0.02 L Less than 0.02 L (0.02-0.05) ng/mL Coagulation 11/03/17 Range/Units 01:43 PT 9.7 L (9.8-11.6) sec APTT 25.9 (24.3-30.1) sec CBC 11/03/17 Range/Units 01:43 WBC 10.9 (4.0-11.0) th/mm3 RBC 4.57 (4.00-5.30) mil/mm3 Hgb 12.8 (11.6-15.3) gm/dL Hct 38.6 (35.0-46.0) % Plt Count 247 (150-450) th/mm3 Neut # (Auto) 4.2 (1.8-7.7) th/mm3 Lymph # (Auto) 5.9 H (1.0-4.8) th/mm3 Granite # (Auto) 0.5 (0.0-0.9) th/mm3 Eos # (Auto) 0.2 (0.0-0.4) th/mm3 Baso # (Auto) 0.1 (0.0-0.2) th/mm3 Comprehensive Metabolic Panel 11/03/17 Range/Units 01:43 Sodium 141 (136-145) meq/L Potassium 3.5 (3.5-5.1) meq/L Chloride 103 (98-107) meq/L Carbon Dioxide 30.1 (21.0-32.0) meq/L BUN 14 (7-18) mg/dL Creatinine 0.89 (0.50-1.00) mg/dL Calcium 8.8 (8.5-10.1) mg/dL AST 18 (15-37) U/L ALT 18 (10-53) U/L Alkaline Phosphatase 91 (45-117) U/L Total Protein 7.5 (6.4-8.2) g/dL Albumin 3.6 (3.4-5.0) g/dL EKG interpretations - EKG EKG results cardiology: sinus rhythm, normal axis, normal QRS, normal ST/T Caprini VTE Risk Assessment Caprini VTE Risk Assessment: No/Low Risk (score <= 1) Caprini Risk Assessment Model: Point Value = 1 Point Value = 2 Point Value = 3 Point Value = 5 Age 41-60 Minor surgery BMI > 25 kg/m2 Swollen legs Varicose veins or History of unexplained or recurrent spontaneous Oral contraceptives or hormone replacement Sepsis (< 1 month) Serious lung disease, including pneumonia (< 1 month) Abnormal pulmonary function Acute myocardial infarction Congestive heart failure (< 1 month) History of inflammatory bowel disease Medical patient at bed rest Age 61-74 Arthroscopic surgery Major open surgery (> 45 min) Laparoscopic surgery (> 45 min) Malignancy Confined to bed (> 72 hours) Immobilizing plaster cast Central venous access Age >= 75 History of VTE Family history of VTE Factor V Leiden Prothrombin [id number] Lupus anticoagulant Anticardiolipin antibodies Elevated serum homocysteine Heparin-induced thrombocytopenia Other congenital or acquired thrombophilia Stroke (< 1 month) Elective arthroplasty Hip, pelvis, or leg fracture Acute spinal cord injury (< 1 month) Prophylaxis Regimen: Total Risk Factor Score Risk Level Prophylaxis Regimen 0-1 Low Early ambulation 2 Moderate Order ONE of the following: *Sequential Compression Device (SCD) *Heparin 5000 units SQ BID 3-4 Higher Order ONE of the following medications: *Heparin 5000 units SQ TID *Enoxaparin/Lovenox 40 mg SQ daily (WT < 150 kg, CrCl > 30 mL/min) *Enoxaparin/Lovenox 30 mg SQ daily (WT < 150 kg, CrCl > 10-29 mL/min) *Enoxaparin/Lovenox 30 mg SQ BID (WT < 150 kg, CrCl > 30 mL/min) AND/OR *Sequential Compression Device (SCD) 5 or more Highest Order ONE of the following medications: *Heparin 5000 units SQ TID (Preferred with Epidurals) *Enoxaparin/Lovenox 40 mg SQ daily (WT < 150 kg, CrCl > 30 mL/min) *Enoxaparin/Lovenox 30 mg SQ daily (WT < 150 kg, CrCl > 10-29 mL/min) *Enoxaparin/Lovenox 30 mg SQ BID (WT < 150 kg, CrCl > 30 mL/min) AND *Sequential Compression Device (SCD) Assessment and Plan - Assessment (1) Chest pain, atypical Code(s): R07.89 - Other chest pain Status: Acute Onset Date: ~11/02/17 Plan: Admitted chest pain center. ACS ruled out with 3 sets of EKGs and cardiac enzymes. Seen and evaluated by Dr. Celestina Galvan. Recent cardiac catheterization September 2016 mild 2 vessel disease. No further cardiac testing. Optimize blood pressure medication. Follow-up with PCP. (2) Hypertension Code(s): I10 - Essential (primary) hypertension Status: Acute Plan: Continue lisinopril, amlodipine, and furosemide. Increase carvedilol. Encouraged low-sodium diet of no more than 2000 mg daily, increasing daily activity, and weight loss. Follow up with PCP. (3) Diabetes mellitus, type II, insulin dependent Code(s): E11.9 - Type 2 diabetes mellitus without complications; Z79.4 - FPC (current) use of insulin Status: Acute Plan: Continue glipizide and Levemir. Encouraged adapting diet low in processed foods , flour, sugar, and beverages increased sugar intake. Increase daily activity. (4) Situational anxiety Code(s): F41.8 - Other specified anxiety disorders Status: Acute Plan: Xanax 0.25 mg x1 dose now. Encouraged reaching out for family and friend support , consider local support group to discuss feelings of recent of son. Follow up with primary care provider to discuss as needed anti anxiety medication. (2) Hypertension Qualifiers: Hypertension type: unspecified Qualified Code(s): I10 - Essential (primary) hypertension
[2017-11-03] MEDS ORDERED: Famotidine 20 MG Tablet PO SCH (09:00)
[2017-11-03] MEDS ORDERED: Dextrose 50% in Water 50 ML Vial IV.PUSH PRN (09:45)
[2017-11-03] MEDS ORDERED: ALPRAZolam 0.25 MG Tablet PO ONE (10:00)
[2017-11-03] MEDS ORDERED: Gabapentin 300 MG Capsule PO SCH (10:00)
[2017-11-03] MEDS ORDERED: amLODIPine 10 MG Tablet PO SCH (10:00)
[2017-11-03] MEDS ORDERED: Carvedilol 6.25 MG Tablet PO ONE (10:00)
[2017-11-03] MEDS ORDERED: Lisinopril 20 MG Tablet PO SCH (10:00)
[2017-11-03] MEDS ORDERED: Furosemide 40 MG Tablet PO SCH (10:00)
[2017-11-03] MEDS ORDERED: Insulin Detemir Inj 1,000 UNIT/10 ML Vial SQ SCH (10:30)
[2017-11-03 10:59] LABS: Creatine Kinase 82 U/L (26-192)
[2017-11-03 12:12] VITALS: BP 162/77; PULSE 84; RESP 14; TEMP 98.2
[2017-11-03] MEDS ORDERED: glipiZIDE 10 MG Tablet PO SCH (21:00)
--- NOTE | 2017-11-03 23:36 | ECG ---
Date Performed: 11/03/2017 Time Performed: 09:00:23 PTAGE: 47 years EKG: Sinus rhythm LEFT VENTRICULAR HYPERTROPHY ABNORMAL ECG PREVIOUS TRACING : 11/03/2017 06.08 Since the previous tracing, no significant change noted DOCTOR: Troy Leo Interpretating Date/Time 11/03/2017 23:34:21
--- NOTE | 2017-11-03 23:38 | ECG ---
Date Performed: 11/03/2017 Time Performed: 06:08:10 PTAGE: 47 years EKG: Sinus rhythm POSSIBLE LEFT VENTRICULAR HYPERTROPHY ABNORMAL ECG PREVIOUS TRACING : 11/03/2017 01.26 Since the previous tracing, no significant change noted DOCTOR: Troy Leo Interpretating Date/Time 11/03/2017 23:37:27
--- NOTE | 2017-11-03 23:45 | ECG ---
Date Performed: 11/03/2017 Time Performed: 01:26:33 PTAGE: 47 years EKG: Sinus rhythm VOLTAGE CRITERIA FOR LVH ABNORMAL ECG INTERPRETATION BASED ON A DEFAULT AGE OF 40 YEARS PREVIOUS TRACING : 02/16/2017 14.07 Since the previous tracing, no significant change not ed DOCTOR: Troy Leo Interpretating Date/Time 11/03/2017 23:45:06
== END 2017-11-03 12:32 | disposition home or self-care (01) ==
LOC: NEPE 01:21 → NEDA 01:21 → NEPFCDU 01:21

== ENCOUNTER 2017-11-17 11:29 | Observation (INO) ==
[2017-11-17] MEDS ORDERED: Sodium Chlor 0.9% Inj 500 ML IV.SIG ONE ×2 (12:33→14:04)
--- NOTE | 2017-11-17 12:43 | ED ---
HPI General Chief Complaint: Chest Pain Stated Complaint: Chest Pains Time Seen by Provider: 11/17/17 11:58 History of Present Illness HPI narrative: 47-year-old female with a history of hypertension, diabetes, CAD , CHF, asthma, anxiety presents to the emergency department by EMS for evaluation of chest pain. Patient states that she woke up this morning at 7:30 AM with midsternal chest pain which she describes as pressure on her chest. States that she also began to feel sweaty and slightly lightheaded as well. States that she took a nitro tablet at 8 AM and took her other morning medications including a baby aspirin and then laid down for an hour. States that the pain continued to worsen so she called 911. She was given to intranasal doses of nitro and 162 mg of aspirin by EMS. States that her pain has persisted. States that she feels poorly overall feeling diaphoretic and states she has a low backache. States that she had a urinary tract infection for the past week and finished her antibiotics Cipro 2 days ago. She was recently admitted to our chest pain center with negative cardiac enzymes and EKGs and was discharged to follow-up as an outpatient. PCP is Jada FARIA. 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 Denies any fever, chills, nausea, vomiting, diarrhea, headache, vision changes, numbness or tingling, weakness, abdominal pain. Complete Quality Measures for STEMI Alert Patients Related Data Home Medications Medication Instructions Recorded Confirmed albuterol sulfate 2 puff INHALATION Q4H PRN 11/02/17 11/17/17 amlodipine 10 mg PO DAILY 11/02/17 11/17/17 aspirin [Aspirin Low Dose] 81 mg PO DAILY 11/02/17 11/17/17 dicyclomine 10 mg PO QID 11/02/17 11/17/17 furosemide 40 mg PO DAILY 11/02/17 11/17/17 gabapentin 300 mg PO DAILY 11/02/17 11/17/17 glipizide 10 mg PO BID 11/02/17 11/17/17 hydrocodone-acetaminophen 1 tab PO Q4H PRN 11/02/17 11/17/17 ibuprofen 800 mg PO TID PRN 11/02/17 11/17/17 insulin detemir U-100 [Levemir 50 unit SUB-Q BID 11/02/17 11/17/17 FlexTouch U-100 Insuln] lisinopril 40 mg PO DAILY 11/02/17 11/17/17 multivitamin 1 tab PO DAILY 11/02/17 11/17/17 rosuvastatin 40 mg PO DAILY 11/02/17 11/17/17 venlafaxine 75 mg PO BID 11/02/17 11/17/17 venlafaxine 150 mg PO TID 11/02/17 11/17/17 hydralazine 25 mg PO QID 11/17/17 11/17/17 ranitidine HCl [Zantac] 150 mg PO BID 11/17/17 11/17/17 Previous Rx's Medication Instructions Recorded carvedilol 6.25 mg PO BID #60 tab 11/03/17 Allergies Allergy/AdvReac Type Severity Reaction Status Date / Time amoxicillin Allergy Severe RASH, SOB Verified 11/02/17 12:04 bee venom protein (honey bee) Allergy Severe Anaphylaxis Verified 11/02/17 12:04 clavulanic acid Allergy Severe RASH, SOB Verified 11/02/17 12:04 penicillin G Allergy Severe HIVES, SOB Verified 11/02/17 12:04 Sulfa (Sulfonamide Allergy Severe SHORTNESS Verified 11/02/17 12:04 Antibiotics) OF BREATH amlodipine Allergy Intermediate pt denies Verified 11/17/17 11:38 diphenhydramine Allergy Intermediate hives Verified 11/02/17 12:04 latex Allergy Intermediate HIVES Verified 11/17/17 11:38 Review of Systems Except as stated in HPI: all other systems reviewed are negative PMFSH Family History Family History Father Family history of acute myocardial infarction Social History Social History Substance History: No History of Abuse Second Hand Smoke Exposure: No Smoking Status: Never smoker How Often Do You Have a Drink Containing Alcohol: Never Hx Recent Travel: No Recent Travel in [facility] within the Last 8 Weeks: No Recent Out of Country Travel within the Last 8 Weeks: No Immunization History Tetanus Immunization: >5 Years Hx Influenza Vaccine This Season: Yes Exam Narrative Exam Narrative: GENERAL: Well-nourished and well-developed pleasant patient in no acute distress who is nontoxic appearing. SKIN: Warm and dry without any obvious rashes or lesions. HEAD: Normocephalic and atraumatic. EYES: No injection, drainage, or hyphema noted. PERRLA. EOMI. ENT: No nasal drainage noted. Oropharynx is clear. NECK: Supple and the trachea is midline. No lymphadenopathy is noted throughout the cervical chains. No thyroid masses or abnormalities palpated. No carotid bruits auscultated. CARDIOVASCULAR: Regular rate and rhythm. RESPIRATORY: Breath sounds are equal bilaterally with no accessory muscle use, wheezing, rhonchi, or crackles. GASTROINTESTINAL: Abdomen is soft, non-tender, and nondistended. No hepatosplenomegaly. MUSCULOSKELETAL: No obvious deformities, swelling, cyanosis, or ecchymosis is present throughout the upper and lower extremities. Patient has full range of motion without any signs of neurovascular compromise. Distal pulses are 2+ throughout. BACK: Nontender without any obvious deformities, bony point tenderness, or crepitus noted throughout the thoracic and lumbar vertebrae. NEUROLOGICAL: Awake, alert, and oriented. Normal speech and gait. Cranial nerves are grossly intact. Course Initial Documented Vital Signs Temperature 98.3 F 11/17/17 11:40 Pulse Rate 96 H 11/17/17 11:40 Respiratory Rate 20 11/17/17 11:40 Blood Pressure 180/82 H 11/17/17 11:40 Pulse Oximetry 98 11/17/17 11:40 Last Documented Vital Signs Temperature 97.8 F 11/17/17 13:53 Pulse Rate 95 H 11/17/17 13:53 Respiratory Rate 18 11/17/17 13:53 Blood Pressure 116/66 11/17/17 13:53 Pulse Oximetry 99 11/17/17 13:53 Medical Decision Making [facility] Narrative Medical decision making narrative: Patient presents to the emergency department for evaluation of chest pain. IV access was established, labs have been drawn and sent. EKG shows normal sinus rhythm with no acute ST elevations or depressions. Patient's blood pressure was initially elevated however has come down to 149/103. She has been administered 325 mg of aspirin and 3 doses of nitro. The patient was reevaluated and her BP and chest pain has improved. Labs and imaging are unremarkable. I discussed the case with my attending physician and we agree with placing the patient in chest pain center observation for repeat cardiac enzymes and telemetry monitoring. Patient verbalizes understanding and agreement with treatment plan. Lab Data Result diagrams: 11/17/17 11:32 11/17/17 11:32 Lab Results 11/17/17 11/17/17 11/17/17 Range/Units 11:32 11:32 11:32 WBC 14.7 H (4.0-11.0) th/mm3 RBC 4.91 (4.00-5.30) mil/mm3 Hgb 13.6 (11.6-15.3) gm/dL Hct 41.4 (35.0-46.0) % MCV 84.4 (80.0-100.0) fL MCH 27.8 (27.0-34.0) pg MCHC 32.9 (32.0-36.0) % RDW 14.8 (11.6-17.2) % Plt Count 354 D (150-450) th/mm3 MPV 10.2 (7.0-11.0) fL Prelim Diff (Auto) Slide review pending Neut % (Auto) 54.4 (16.0-70.0) % Lymph % (Auto) 41.2 (9.0-44.0) % Towner % (Auto) 3.4 (0.0-8.0) % Eos % (Auto) 0.4 (0.0-4.0) % Baso % (Auto) 0.6 (0.0-2.0) % Neut # (Auto) 8.0 H (1.8-7.7) th/mm3 Lymph # (Auto) 6.1 H (1.0-4.8) th/mm3 Towner # (Auto) 0.5 (0.0-0.9) th/mm3 Eos # (Auto) 0.1 (0.0-0.4) th/mm3 Baso # (Auto) 0.1 (0.0-0.2) th/mm3 WBC Differential Manual diff final Seg Neuts % (Manual) 56 (16-70) % Lymphocytes % (Manual) 41 (9-44) % Monocytes % (Manual) 3 (0-8) % Abs Neuts (Manual) 8.2 H (1.8-7.7) th/mm3 Differential Comment . Platelet Estimate Normal (Normal) Platelet Morphology Normal (Normal) RBC Morphology Normal (Normal) Sodium 137 (136-145) meq/L Potassium 3.8 (3.5-5.1) meq/L Chloride 104 (98-107) meq/L Carbon Dioxide 26.2 (21.0-32.0) meq/L Anion Gap 7 (5-15) meq/L BUN 12 (7-18) mg/dL Creatinine 0.77 (0.50-1.00) mg/dL Estimated GFR 81 L (>89) mL/min Random Glucose 118 H (74-106) mg/dL Calcium 8.5 (8.5-10.1) mg/dL Total Bilirubin 0.4 (0.2-1.0) mg/dL AST 27 (15-37) U/L ALT 24 (10-53) U/L Alkaline Phosphatase 95 (45-117) U/L Total Creatine Kinase 79 (26-192) U/L Troponin I Less than 0.02 L (0.02-0.05) ng/mL B-Natriuretic Peptide (0-100) pg/mL Total Protein 7.5 (6.4-8.2) g/dL Albumin 3.4 (3.4-5.0) g/dL Urine Color (Yellw/Straw) Urine Clarity (Clear) Urine pH (5.0-8.5) Ur Specific Keystone (1.002-1.035) Urine Protein (Neg-Trace) mg/dL Urine Glucose (UA) (Negative) mg/dL Urine Ketones (Negative) mg/dL Urine Occult Blood (Negative) Urine Nitrate (Negative) Urine Bilirubin (Negative) Urine Urobilinogen (Less than 2) mg/dL Ur Leukocyte Esterase (Negative) Urine RBC (0-3) /hpf Urine WBC (0-5) /hpf Ur Squamous Epith Cells (0-5) /hpf Urine Bacteria (None) /hpf Micro UA Comment Urine Culture Comments 11/17/17 11/17/17 Range/Units 11:32 12:38 WBC (4.0-11.0) th/mm3 RBC (4.00-5.30) mil/mm3 Hgb (11.6-15.3) gm/dL Hct (35.0-46.0) % MCV (80.0-100.0) fL MCH (27.0-34.0) pg MCHC (32.0-36.0) % RDW (11.6-17.2) % Plt Count (150-450) th/mm3 MPV (7.0-11.0) fL Prelim Diff (Auto) Neut % (Auto) (16.0-70.0) % Lymph % (Auto) (9.0-44.0) % Towner % (Auto) (0.0-8.0) % Eos % (Auto) (0.0-4.0) % Baso % (Auto) (0.0-2.0) % Neut # (Auto) (1.8-7.7) th/mm3 Lymph # (Auto) (1.0-4.8) th/mm3 Towner # (Auto) (0.0-0.9) th/mm3 Eos # (Auto) (0.0-0.4) th/mm3 Baso # (Auto) (0.0-0.2) th/mm3 WBC Differential Seg Neuts % (Manual) (16-70) % Lymphocytes % (Manual) (9-44) % Monocytes % (Manual) (0-8) % Abs Neuts (Manual) (1.8-7.7) th/mm3 Differential Comment Platelet Estimate (Normal) Platelet Morphology (Normal) RBC Morphology (Normal) Sodium (136-145) meq/L Potassium (3.5-5.1) meq/L Chloride (98-107) meq/L Carbon Dioxide (21.0-32.0) meq/L Anion Gap (5-15) meq/L BUN (7-18) mg/dL Creatinine (0.50-1.00) mg/dL Estimated GFR (>89) mL/min Random Glucose (74-106) mg/dL Calcium (8.5-10.1) mg/dL Total Bilirubin (0.2-1.0) mg/dL AST (15-37) U/L ALT (10-53) U/L Alkaline Phosphatase (45-117) U/L Total Creatine Kinase (26-192) U/L Troponin I (0.02-0.05) ng/mL B-Natriuretic Peptide 42 (0-100) pg/mL Total Protein (6.4-8.2) g/dL Albumin (3.4-5.0) g/dL Urine Color Yellow (Yellw/Straw) Urine Clarity Clear (Clear) Urine pH 6.0 (5.0-8.5) Ur Specific Keystone 1.027 (1.002-1.035) Urine Protein 100 H (Neg-Trace) mg/dL Urine Glucose (UA) Negative (Negative) mg/dL Urine Ketones Negative (Negative) mg/dL Urine Occult Blood Negative (Negative) Urine Nitrate Negative (Negative) Urine Bilirubin Negative (Negative) Urine Urobilinogen 0.2 (Less than 2) mg/dL Ur Leukocyte Esterase Negative (Negative) Urine RBC 0-3 (0-3) /hpf Urine WBC 0-5 (0-5) /hpf Ur Squamous Epith Cells 6-10 H (0-5) /hpf Urine Bacteria Few H (None) /hpf Micro UA Comment Culture not ind Urine Culture Comments Culture not ind Imaging Data Radiologist's impression: Chest X-Ray 11/17/17 12:28 CONCLUSION: Negative for an acute process Discharge Plan Discharge Disposition Patient Disposition: 30 Still Patient Discharge Details Diagnosis: Chest pain, rule out acute myocardial infarction Physicians Team ED Provider: Liset Sanderson ED Midlevel Provider: Sadaf Haynes Primary Care Provider: Jada York Rxs /Orders / Referrals /Forms Prescriptions: No Action multivitamin Tablet 1 tab PO DAILY RF: 0 furosemide 40 mg Tablet 40 mg PO DAILY RF: 0 venlafaxine 75 mg Tablet 75 mg PO BID RF: 0 ibuprofen 800 mg Tablet 800 mg PO TID PRN (Reason: Pain) RF: 0 glipizide 10 mg Tablet 10 mg PO BID RF: 0 venlafaxine 150 mg Capsule,Extended Release 24hr 150 mg PO TID RF: 0 aspirin [Aspirin Low Dose] 81 mg Tablet,Delayed Release (Dr/Ec) 81 mg PO DAILY RF: 0 amlodipine 10 mg Tablet 10 mg PO DAILY RF: 0 hydrocodone-acetaminophen 7.5-325 mg Tablet 1 tab PO Q4H PRN (Reason: Pain) RF: 0 gabapentin 300 mg Capsule 300 mg PO DAILY RF: 0 albuterol sulfate 90 mcg/actuation Hfa Aerosol Inhaler 2 puff INHALATION Q4H PRN (Reason: Shortness Of Breath Or Wheezing) RF: 0 lisinopril 40 mg Tablet 40 mg PO DAILY RF: 0 dicyclomine 10 mg Capsule 10 mg PO QID RF: 0 rosuvastatin 40 mg Tablet 40 mg PO DAILY RF: 0 insulin detemir U-100 [Levemir FlexTouch U-100 Insuln] 100 unit/mL (3 mL) Insulin Pen 50 unit SUB-Q BID RF: 0 carvedilol 6.25 mg Tablet 6.25 mg PO BID Qty: 60 RF: 0 hydralazine 25 mg Tablet 25 mg PO QID RF: 0 ranitidine HCl [Zantac] 150 mg Tablet 150 mg PO BID RF: 0 Discharge Instructions Patient Printed Instructions: Chest Pain (ED) Discharge Interventions Interventions: Vital Signs Last Done: 11/17/17 11:51 Status ED Status: With Doctor
--- NOTE | 2017-11-17 12:56 | XR ---
EXAM DATE: 11/17/2017 12:52 PM EDT AGE/SEX: 47 years / Female INDICATIONS: Chest pain and short of breath today CLINICAL DATA: This is the patient's initial encounter. Patient reports that signs and symptoms have been present for 1 day and indicates a pain score of Nonresponsive. MEDICAL/SURGICAL HISTORY: Asthma. Hypertension. Diabetes. Non-responsive. [place] [facility] [place]. . FINDINGS: A single AP view of the chest demonstrates the lungs to be symmetrically aerated without evidence of mass, infiltrate or effusion. The cardiomediastinal contours are unremarkable. Osseous structures a re intact. CONCLUSION: Negative for an acute process Electronically signed by: Wayne Portillo MD 11/17/2017 12:55 PM EDT
[2017-11-17 13:06] LABS: Baso # (Auto) 0.1 th/mm3 (0.0-0.2); Baso % (Auto) 0.6 % (0.0-2.0); Eos # (Auto) 0.1 th/mm3 (0.0-0.4); Eos % (Auto) 0.4 % (0.0-4.0); Hematocrit 41.4 % (35.0-46.0); Hemoglobin 13.6 gm/dL (11.6-15.3); Lymph # (Auto) 6.1 th/mm3 (1.0-4.8); Lymph % (Auto) 41.2 % (9.0-44.0); Mean Corpuscular HGB Conc 32.9 % (32.0-36.0); Mean Corpuscular Hemoglobin 27.8 pg (27.0-34.0); Mean Corpuscular Volume 84.4 fL (80.0-100.0); Mean Platelet Volume 10.2 fL (7.0-11.0); Mono # (Auto) 0.5 th/mm3 (0.0-0.9); Mono % (Auto) 3.4 % (0.0-8.0); Neut % (Auto) 54.4 % (16.0-70.0); Platelet Count 354 th/mm3 (150-450); Red Blood Count 4.91 mil/mm3 (4.00-5.30); Red Cell Distribution Width 14.8 % (11.6-17.2); White Blood Count 14.7 th/mm3 (4.0-11.0)
[2017-11-17 13:17] LABS: Bilirubin,Urine Negative (Negative); Clarity,Urine Clear (Clear); Color,Urine Yellow (Yellw/Straw); Glucose,Urine (UA) Negative (Negative); Leukocyte Esterase,Urine Negative (Negative); Nitrite,Urine Negative (Negative); Urobilinogen,Urine 0.2 mg/dL (Less than 2)
[2017-11-17 13:18] LABS: Specific Gravity,Urine 1.027 (1.002-1.035)
[2017-11-17 13:32] LABS: Alanine Aminotransferase 24 U/L (10-53); Albumin 3.4 g/dL (3.4-5.0); Alkaline Phosphatase 95 U/L (45-117); Anion Gap 7 meq/L (5-15); Aspartate Aminotransferase 27 U/L (15-37); Blood Urea Nitrogen 12 mg/dL (7-18); Calcium 8.5 mg/dL (8.5-10.1); Carbon Dioxide 26.2 meq/L (21.0-32.0); Chloride 104 meq/L (98-107); Glomerular Filtration Rate 81 mL/min (>89); Glucose,Random 118 mg/dL (74-106); Potassium 3.8 meq/L (3.5-5.1); Sodium 137 meq/L (136-145); Total Protein 7.5 g/dL (6.4-8.2)
[2017-11-17 13:33] LABS: Creatine Kinase 79 U/L (26-192)
[2017-11-17 13:41] LABS: Bacteria,Urine Few /hpf; RBC,Urine 0-3 /hpf (0-3); WBC,Urine 0-5 /hpf (0-5)
[2017-11-17 13:49] LABS: Lymphocytes 41 % (9-44); Monocytes 3 % (0-8); Platelet Estimate Normal (Normal); Platelet Morphology Normal (Normal)
[2017-11-17 13:50] LABS: RBC Morphology Normal (Normal)
[2017-11-17 14:08] VITALS: TEMP 97.8
[2017-11-17 14:08] LABS: Activated Partial Thrombo Time 26.7 sec (24.3-30.1); Prothrombin Time 9.9 sec (9.8-11.6)
[2017-11-17] MEDS ORDERED: Acetaminophen 500 MG Tablet PO ONE (14:37)
--- NOTE | 2017-11-17 17:05 | CT ---
EXAM DATE: 11/17/2017 4:48 PM EDT AGE/SEX: 47 years / Female INDICATIONS: Chest pain. CLINICAL DATA: This is the patient's initial encounter. Patient reports that signs and symptoms have been present for 2 days and indicates a pain score of 3/10. MEDICAL/SURGICAL HISTORY: Congestive heart failure. Diabetes. Hypertension. Cholecystectomy. Mark arean section. Cardiac cath. RADIATION DOSE: 23.38 CTDI (mGy) COMPARISON: No prior exams available for comparison. TECHNIQUE: Volumetric scanning was performed using a multi-row detector CT scanner during bolus infu ksenia of 75 ml Omnipaque 350 (iohexol) nonionic water-soluble contrast as a single exam dose. The kayode a was post processed with a variety of visualization algorithms including full volume maximum intensi ty projection and sliding thin slab reformation. Using automated exposure control and adjustment of the mA and/or kV according to patient size, radiation dose was kept as low as reasonably achievable t o obtain optimal diagnostic quality images. DICOM format image data is available electronically for review and comparison. FINDINGS: There is a 6 mm nodule in the right lower lobe and another 3 mm or less nodules also in the right low er lobe. No adenopathy. No lung consolidation. No filling defects to suggest pulmonary embolus. There is no pleural or pericardial effusion. No acut e findings in the upper abdomen. CONCLUSION: 1. Negative for pulmonary embolus. 2. 6 mm nodule right lower lobe with other smaller nodules. Recommend follow-up CT in 6 months. Electronically signed by: Chadd Azul MD 11/17/2017 5:03 PM EDT
[2017-11-18 22:24] VITALS: BP 134/81; PULSE 89; RESP 16; O2SAT 97
--- NOTE | 2017-11-18 23:47 | ECG ---
Date Performed: 11/17/2017 Time Performed: 11:43:42 PTAGE: 47 years EKG: Sinus rhythm VOLTAGE CRITERIA FOR LVH ABNORMAL ECG PREVIOUS TRACING : 11/03/2017 09.00 Since the previous tracing, no significant change noted DOCTOR: Troy Leo Interpretating Date/Time 11/18/2017 23:45:49
== END 2017-11-17 17:54 | disposition home or self-care (01) ==
LOC: NEPC 11:29 → NEDA 11:29
PROVIDERS: ADMIT Internal Medicine Cardiovascular Disease; ATTEND Internal Medicine Cardiovascular Disease